=== PATIENT | female | born 1955 | race Caucasian/White ===

== ENCOUNTER 2019-04-06 10:30 | Inpatient (IN) | payer SELFPAY ==
--- NOTE | 2019-04-06 13:20 | ER Document Report ---
ED Medical Screen (RME) - General Chief Complaint: Low Back Pain Stated Complaint: LOWER BACK PAIN Time Seen by Provider: 04/06/19 12:58 Notes: Patient is a 63-year-old female who presents emergency department with a chief complaint of back pain. Patient reports she has had constant lower back pain over the past 4 to 5 months. She is living in a hotel currently. Patient is brought to triage by a neighbor who also lives in the hotel room as she is concerned that she has been bed bound for over 2 weeks due to the severe back pain and that she is concerned that she may fall. Patient reports she has been taking ibuprofen. She states that she can stand up but is unable to ambulate without assistance due to severe pain. Denies IV drug use. Denies chest pain, shortness of breath or fever. Denies loss of bowel or bladder. Denies injury or fall. TRAVEL OUTSIDE OF THE [place] IN LAST 30 DAYS: No - Related Data Allergies/Adverse Reactions: Sulfa (Sulfonamide Antibiotics) Allergy (Verified 04/06/19 12:58) Home Medications: sholat Past Medical History - Social History Chew tobacco use (# tins/day): No Frequency of alcohol use: None Drug Abuse: None Physical Exam - Vital signs Vitals: Temp Pulse Resp BP Pulse Ox 97.5 F 117 H 20 107/79 98 04/06/19 10:45 04/06/19 10:45 04/06/19 10:45 04/06/19 10:45 04/06/19 10:45 Course - Re-evaluation Re-evalutation: 04/06/19 13:18 Patient has diffuse lower back pain. Patient appears disheveled, is alert and oriented x3. Heart rate 117. Will obtain basic labs as well as urinalysis. I have greeted and performed a rapid initial assessment of this patient. A comprehensive ED assessment and evaluation of the patient, analysis of test results and completion of the medical decision making process will be conducted by additional ED providers. - Vital Signs Vital signs: Temp Pulse Resp BP Pulse Ox 97.5 F 117 H 20 107/79 98 04/06/19 10:45 04/06/19 10:45 04/06/19 10:45 04/06/19 10:45 04/06/19 10:45
--- NOTE | 2019-04-06 14:18 | RADIOLOGY REPORT (SQ) ---
EXAM DESCRIPTION: CT LUMBAR SPINE WITHOUT COMPLETED DATE/TIME: 04/06/2019 2:07 pm REASON FOR STUDY: back pain COMPARISON: None. TECHNIQUE: Axial images acquired through the lumbar spine without intravenous contrast. Images revi ewed with lung, soft tissue and bone windows. Reconstructed coronal and sagittal MPR images reviewed . All images stored on PACS. All CT scanners at this facility use dose modulation, iterative reconstruction, and/or weight based d osing when appropriate to reduce radiation dose to as low as reasonably achievable (ALARA). [facility]: Dose Right [facility]: CareDose [facility]: Dose Right [facility]: Teradose 4D [facility]: Novavax AB RADIATION DOSE: mGy. LIMITATIONS: None. FINDINGS: SEGMENTATION: Normal. No transitional anatomy. ALIGNMENT: Normal. VERTEBRAL BODIES: There is wedging of L1. This is secondary to what appears to be a pathologic compr ession fracture. Mild wedging of L2. There are lytic lesions throughout the lumbar spine. There is an expansile lesion in the transverse process of L3. DISCS: No significant protrusions. Study limited by lack of intrathecal contrast. PEDICLES, TRANSVERSE PROCESSES: No fractures. No dislocation. No acute findings. FACETS, POSTERIOR ELEMENTS: No fractures. No dislocation. No spinal stenosis. HARDWARE: None in the spine. VISUALIZED RIBS: No fractures. SOFT TISSUES: No significant or acute finding in adjacent soft tissues. OTHER: No other significant finding. IMPRESSION: Multiple lytic lesions throughout the lumbar spine with a large expansile lesion in the left L3 transverse process. Findings are most consistent with metastatic disease. Does the patient have a known primary? TECHNICAL DOCUMENTATION: JOB ID: [id number] Quality ID # [id number]: Final reports with documentation of one or more dose reduction techniques (e.g., Au tomated exposure control, adjustment of the mA and/or kV according to patient size, use of iterative reconstruction technique) 2010 [employer]- All Rights Reserved Reading location - IP/workstation name: [email or web address]
--- NOTE | 2019-04-06 14:25 | RADIOLOGY REPORT (SQ) ---
EXAM DESCRIPTION: FEMUR LEFT COMPLETED DATE/TIME: 04/06/2019 2:13 pm REASON FOR STUDY: left thigh pain COMPARISON: None. NUMBER OF VIEWS: Two views. TECHNIQUE: Two radiographic images acquired of the left femur to include hip and knee in at least on e projection. LIMITATIONS: None. FINDINGS: MINERALIZATION: Normal. BONES: There is a lytic lesion in the mid femur. There is periostitis. No fracture. SOFT TISSUES: No obvious swelling or foreign body. OTHER: No other significant finding. IMPRESSION: Lytic lesion in the mid left femur suspicious for primary neoplasm or metastatic disease . TECHNICAL DOCUMENTATION: JOB ID: [id number] 2010 [employer]- All Rights Reserved Reading location - IP/workstation name: [email or web address]
[2019-04-06 14:26] LABS: ABSOLUTE BASOPHILS # (AUTO) 0.1 10^3/uL (0.0-0.2); ABSOLUTE EOSINOPHILS # (AUTO) 0.2 10^3/uL (0.0-0.6); ABSOLUTE LYMPHOCYTES (AUTO) 2.3 10^3/uL (0.5-4.7); ABSOLUTE NEUT (AUTO) 11.3 10^3/uL (1.7-8.2); BASOPHILS % (AUTO) 0.5 % (0-2); EOSINOPHILS % (AUTO) 1.1 % (0-6); HEMOGLOBIN 12.2 g/dL (12.0-15.5); LYMPHOCYTES % (AUTO) 15.5 % (13-45); MEAN CORPUSCULAR HEMOGLOBIN 31.8 pg (27.0-33.4); MEAN CORPUSCULAR HGB CONC 34.9 g/dL (32.0-36.0); MEAN CORPUSCULAR VOLUME 91 fl (80-97); MONOCYTES % (AUTO) 6.9 % (3-13); PLATELET COUNT 604 10^3/uL (150-450); RED BLOOD COUNT 3.85 10^6/uL (3.72-5.28); RED CELL DISTRIBUTION WIDTH 14.6 % (11.5-14.0); TOTAL CELLS COUNTED % (AUTO) 100 %; WHITE BLOOD COUNT 14.8 10^3/uL (4.0-10.5)
[2019-04-06 14:44] LABS: ALKALINE PHOSPHATASE 309 U/L (38-126); ANION GAP 15 (5-19); ASPARTATE AMINO TRANSFERASE 22 U/L (14-36); BILIRUBIN,DIRECT 0.3 mg/dL (0.0-0.4); BILIRUBIN,TOTAL 0.5 mg/dL (0.2-1.3); BLOOD UREA NITROGEN 54 mg/dL (7-20); CARBON DIOXIDE 14 mmol/L (22-30); CHLORIDE 112 mmol/L (98-107); GLUCOSE 164 mg/dL (75-110); POTASSIUM 3.6 mmol/L (3.6-5.0); TOTAL PROTEIN 7.3 g/dL (6.3-8.2)
[2019-04-06 15:01] LABS: CALCIUM 12.3 mg/dL (8.4-10.2)
[2019-04-06] MEDS ORDERED: NORMAL SALINE 1000 ML 1,000 ML IV ONE (15:58)
--- NOTE | 2019-04-06 16:00 | ER Document Report ---
ED General - General Chief Complaint: Low Back Pain Stated Complaint: LOWER BACK PAIN Time Seen by Provider: 04/06/19 12:58 TRAVEL OUTSIDE OF THE [place] IN LAST 30 DAYS: No - HPI Notes: 63-year-old female to the emergency department with complaints of low back pain and left thigh pain that has been ongoing for the past 3 months. She states that the pain started first with her thigh and then progressed to her low back. She states that her back gives her so much pain that she has now started to use a walker. She is currently living in a hotel. She states that she has had a 20 pound weight loss. She states that she has no appetite for food or any fluids. She states that she has not seen a physician in over 5 years. She states that she is a former smoker. She denies any abdominal pain or cough. She denies any night sweats. She denies any nausea or vomiting. She was brought in by a hotel worker today because they have been starting to get worried that she is going to fall in her room and no one will know that she is down. - Related Data Allergies/Adverse Reactions: Sulfa (Sulfonamide Antibiotics) Allergy (Verified 04/06/19 12:58) Home Medications: [employer] Past Medical History - General Information source: Patient, Friend - Social History Smoking Status: Former Smoker Chew tobacco use (# tins/day): No Frequency of alcohol use: None Drug Abuse: None Lives with: Alone Family History: Reviewed & Not Pertinent Patient has suicidal ideation: No Patient has homicidal ideation: No Review of Systems - Review of Systems Constitutional: Weight loss - 20 pound weight loss. denies: Chills, Fever EENT: No symptoms reported Cardiovascular: denies: Chest pain, Palpitations, Syncope, Dizziness, Lightheaded Respiratory: denies: Cough, Short of breath Gastrointestinal: denies: Abdominal pain, Diarrhea, Nausea, Vomiting, Fecal incontinence Genitourinary: denies: Incontinence Musculoskeletal: See HPI, Back pain, Joint pain, Leg swelling Skin: No symptoms reported Neurological/Psychological: See HPI, Gait changes -: Yes All other systems reviewed and negative Physical Exam - Vital signs Vitals: Temp Pulse Resp BP Pulse Ox 97.5 F 117 H 20 107/79 98 04/06/19 10:45 04/06/19 10:45 04/06/19 10:45 04/06/19 10:45 04/06/19 10:45 Interpretation: Normal - General General appearance: Alert Notes: Appears chronically ill, pale, mucous membranes are very dry - HEENT Head: Normocephalic, Atraumatic Eyes: Normal Pupils: PERRL Ears: Normal External canal: Normal Tympanic membrane: Normal Sinus: Normal Nasal: Normal Mouth/Lips: Normal Mucous membranes: Dry Pharynx: Normal. No: Potential airway comprom. Neck: Normal, Supple. No: Lymphadenopathy, Meningismus - Respiratory Respiratory status: No respiratory distress Chest status: Nontender Breath sounds: Normal. No: Rales, Rhonchi, Wheezing Chest palpation: Normal - Cardiovascular Rhythm: Regular Heart sounds: Normal auscultation Murmur: No - Abdominal Inspection: Normal Distension: No distension Bowel sounds: Normal Tenderness: Nontender. No: Tender, McBurney's point, Sullivan's sign, Guarding, Rebound Organomegaly: No organomegaly - Back Back: Normal, Tender - There is tenderness to palpation to the midline lumbar spine. There is no step-off or deformity., Deformity/step-off - Extremities Notes: There is mild tenderness to palpation to the left thigh with possibly some mild edema. There is no calf pain. There is no lower extremity erythema or warmth. - Neurological Neuro grossly intact: Yes Cognition: Normal Orientation: AAOx4 Yaw Coma Scale Eye Opening: Spontaneous Yaw Coma Scale Verbal: Oriented [place] Coma Scale Motor: Obeys Commands [place] Coma Scale Total: 15 Speech: Normal Cranial nerves: Normal Cerebellar coordination: Normal Motor strength normal: LUE, RUE, LLE, RLE Additional motor exam normals: Equal sports photographer Sensory: Normal - Psychological Associated symptoms: Normal affect, Normal mood - Skin Skin Temperature: Warm Skin Moisture: Dry Skin Color: Normal Course - Re-evaluation Re-evalutation: 04/06/19 16:23 Discussed the patient with Dr. Hitchcock, ER attending. We discussed her acute kidney injury as well as concerning lumbar CT and leg x-ray for bone mets. We will obtain a chest x-ray because the patient is a former smoker and then will speak with oncology and hospitalist about admission. Discussed this with patient and she agrees with the plan. 04/06/19 16:[address] Bills, oncologist telecommunications specialist. She agrees with plan for admission for patient. She agrees that the patient needs to be hydrated and she will also work-up for myeloma. I placed a page to hospitalist. Spoke with Dr. Proctor about patient. He agrees with plan for admission. He is aware patient's acute kidney injury as well as hypercalcemia. He is aware of patient's lytic lesions on CT scan as well as x-ray. He is aware that Dr. Bills has been consulted and she will see the patient. Impression: Low back pain and left femur pain with lytic lesion seen on imaging today, acute kidney injury, hypercalcemia. Hospitalist team will admit and patient will be further managed and evaluated. - Vital Signs Vital signs: Temp Pulse Resp BP Pulse Ox 97.5 F 117 H 20 107/79 98 04/06/19 10:45 04/06/19 10:45 04/06/19 10:45 04/06/19 10:45 04/06/19 10:45 - Laboratory Result Diagrams: 04/06/19 13:35 04/06/19 13:35 Laboratory results interpreted by me: 04/06/19 04/06/19 13:35 13:35 WBC 14.8 H Hct 35.0 L RDW 14.6 H Plt Count 604 H Absolute Neuts (auto) 11.3 H Chloride 112 H Carbon Dioxide 14 L BUN 54 H Creatinine 1.95 H Est GFR ( Amer) 31 L Est GFR (MDRD) Non-Af 26 L Glucose 164 H Calcium 12.3 H* Alkaline Phosphatase 309 H - Diagnostic Test Radiology reviewed: Image reviewed, Reports reviewed Discharge - Discharge Clinical Impression: Lytic bone lesion of femur, APRIL (acute kidney injury), Hypercalcemia Low back pain Qualifiers: Chronicity: chronic Back pain laterality: midline Sciatica presence: without sciatica Qualified Code(s): M54.5 - Low back pain Condition: Stable Disposition: ADMITTED INPATIENT Admitting Provider: Esthela (Hospitalist) Unit Admitted: Medical Floor
--- NOTE | 2019-04-06 16:44 | RADIOLOGY REPORT (SQ) ---
EXAM DESCRIPTION: CHEST SINGLE VIEW COMPLETED DATE/TIME: 04/06/2019 4:32 pm REASON FOR STUDY: bone lytic lesions, former smoker COMPARISON: None. EXAM PARAMETERS: NUMBER OF VIEWS: One view. TECHNIQUE: Single frontal radiographic view of the chest acquired. RADIATION DOSE: NA LIMITATIONS: None. FINDINGS: LUNGS AND PLEURA: No opacities, masses or pneumothorax. No pleural effusion. MEDIASTINUM AND HILAR STRUCTURES: No masses. Contour normal. HEART AND VASCULAR STRUCTURES: Heart normal in size. Normal vasculature. BONES: No acute findings. HARDWARE: None in the chest. OTHER: No other significant finding. IMPRESSION: NO ACUTE RADIOGRAPHIC FINDING IN THE CHEST. TECHNICAL DOCUMENTATION: JOB ID: [id number] 2010 [employer]- All Rights Reserved Reading location - IP/workstation name: [email or web address]
[2019-04-06] MEDS ORDERED: ONDANSETRON HCL INJ/PF 4 MG/2 ML SDV IV ONE (16:45)
[2019-04-06] MEDS ORDERED: MORPHINE SULFATE 10 MG/ML INJ IV ONE (16:45)
[2019-04-06] MEDS ORDERED: NORMAL SALINE 1000 ML 1,000 ML IV PRN (17:20)
[2019-04-06] MEDS ORDERED: ZOLEDRONIC ACID 4 MG/100 ML RTU IV ONE ×2 (17:27→18:30)
[2019-04-06] MEDS ORDERED: ONDANSETRON HCL INJ/PF 4 MG/2 ML SDV IV PRN (17:28)
[2019-04-06] MEDS ORDERED: PROMETHAZINE HCL INJ 25 MG/1 ML VIAL IV PRN (17:28)
[2019-04-06] MEDS ORDERED: MAGNESIUM HYDROXIDE SUSP 30 ML UDCUP PO PRN (17:28)
[2019-04-06] MEDS ORDERED: TEMAZEPAM 15 MG CAPSULE PO PRN (17:28)
[2019-04-06] MEDS ORDERED: IPRATROPIUM/ALBUTEROL 0.5-2.5 MG/3 ML AMPUL NEB PRN (17:28)
[2019-04-06] MEDS ORDERED: METOPROLOL TARTRATE PF/INJ 5 MG/5 ML SDV IV PRN (17:49)
[2019-04-06] MEDS ORDERED: FUROSEMIDE INJ/PF 40 MG/4 ML SDV IV ONE (18:00)
--- NOTE | 2019-04-06 18:23 | PDOC H&P ---
History of Present Illness History of Present Illness: DANISH DOWLING is a 63 year old female with no significant past medical history presenting to ED complaining of progressively worsening bilateral hip and left lower extremity pain. Pain is described as constant, achy in nature, 10/10 on severity scale, worsened with any weightbearing or movement, relieved with ibuprofen. She is also c/o progressive weakness, fatigue, low appetite, weight loss of 30 pounds in the last 1 month, polydipsia and polyuria. This all started about 3 months ago with no apparent cause, denies any heavy lifting, trauma, chronic back pain, history of malignancy. She denies any headache, vision changes, numbness, tingling, focal neurological deficits, dysphagia, odynophagia, shortness of breath, chest pain, nausea, diarrhea, constipation or any urinary symptoms. Social History Lives with: Alone Smoking Status: Former Smoker Electronic Cigarette use?: No Family History Family History: Reviewed & Not Pertinent Parental Family History Reviewed: Yes Children Family History Reviewed: Yes Sibling(s) Family History Reviewed.: Yes Medication/Allergy Home Medications: No Home Medications 04/06/19 Allergies/Adverse Reactions: Sulfa (Sulfonamide Antibiotics) Allergy (Verified 04/06/19 12:58) Review of Systems Review of Systems: as per hpi Physical Exam Vital Signs: Temp Pulse Resp BP Pulse Ox 97.5 F 117 H 20 107/79 98 04/06/19 10:45 04/06/19 10:45 04/06/19 10:45 04/06/19 10:45 04/06/19 10:45 Intake & Output 04/05/19 04/06/19 04/07/19 06:59 06:59 06:59 Weight 74 kg General appearance: PRESENT: no acute distress, other - Pale, exhausted. Head exam: PRESENT: atraumatic, normocephalic Respiratory exam: PRESENT: clear to auscultation cindy. ABSENT: rales, rhonchi, wheezes Cardiovascular exam: PRESENT: RRR. ABSENT: diastolic murmur, rubs, systolic murmur GI/Abdominal exam: PRESENT: normal bowel sounds, soft. ABSENT: distended, guarding, mass, organolmegaly, rebound, tenderness Extremities exam: PRESENT: tenderness - Left mid thigh. Bilateral hip.. ABSENT: calf tenderness, clubbing, pedal edema Neurological exam: PRESENT: alert, awake, oriented to person, oriented to place, oriented to time, oriented to situation, CN II-XII grossly intact. ABSENT: motor sensory deficit Skin exam: PRESENT: dry, intact, pallor, warm. ABSENT: cyanosis, rash Results Laboratory Results: 04/06/19 13:35 04/06/19 13:35 04/06/19 04/06/19 13:35 13:35 WBC 14.8 H RBC 3.85 Hgb 12.2 Hct 35.0 L MCV 91 MCH 31.8 MCHC 34.9 RDW 14.6 H Plt Count 604 H Seg Neutrophils % 76.0 Sodium 140.9 Potassium 3.6 Chloride 112 H Carbon Dioxide 14 L Anion Gap 15 BUN 54 H Creatinine 1.95 H Est GFR ( Amer) 31 L Glucose 164 H Calcium 12.3 H* Total Bilirubin 0.5 AST 22 Alkaline Phosphatase 309 H Total Protein 7.3 Albumin 4.0 Impressions: Lumbar Spine CT 04/06/19 13:16 IMPRESSION: Multiple lytic lesions throughout the lumbar spine with a large expansile lesion in the left L3 transverse process. Findings are most consistent with metastatic disease. Does the patient have a known primary? Femur X-Ray 04/06/19 13:17 IMPRESSION: Lytic lesion in the mid left femur suspicious for primary neoplasm or metastatic disease. Chest X-Ray 04/06/19 16:13 IMPRESSION: NO ACUTE RADIOGRAPHIC FINDING IN THE CHEST. Assessment and Plan - Diagnosis (1) Hypercalcemia Is this a current diagnosis for this admission?: Yes Plan: Most likely hypercalcemia of malignancy given lytic bone lesions, anemia and APRIL patient most likely has multiple myeloma. Admit to telemetry, aggressive volume resuscitation guided by volume status, strict in and out, zoledronic acid, calcium level daily, EKG, PTH level. (2) Anorexia Is this a current diagnosis for this admission?: Yes Plan: Likely due to underlying malignancy. We will start on Megace. Consult dietitian. (3) Low back pain Qualifiers: Chronicity: chronic Back pain laterality: midline Sciatica presence: without sciatica Qualified Code(s): M54.5 - Low back pain; G89.29 - Other chronic pain Is this a current diagnosis for this admission?: Yes Plan: Likely due to underlying malignancy. Supportive measures. Denies any focal neurological deficits. Denies any saddle paresthesias. Denies any incontinence or urinary retention. (4) Lytic bone lesion of femur Is this a current diagnosis for this admission?: Yes Plan: Most likely underlying malignancy possibly multiple myeloma given anemia, APRIL, hypercalcemia. We will order UPEP SPEP. Beta-2 microglobulin. LDH. Skeletal survey. Consult oncology. (5) APRIL (acute kidney injury) Is this a current diagnosis for this admission?: Yes Plan: Likely due to underlying malignancy, multiple myeloma. Aggressive volume resuscitation guided by volume status. Strict in and out. Ultrasound. Daily BMP. Avoid nephrotoxic meds.
[2019-04-06] MEDS: MORPHINE SULFATE 10 MG/ML INJ IV PRN (19:00)
[2019-04-06] MEDS: NORMAL SALINE 1000 ML 1,000 ML IV PRN (19:04)
[2019-04-06] MEDS: ACETAMINOPHEN 325 MG TABLET PO PRN (20:58)
[2019-04-06] MEDS ORDERED: INFLUENZA QUAD (6MOS+) 2019-20 VAC 0.5 ML SYR IM ONE (21:34)
--- NOTE | 2019-04-06 22:59 | EKG REPORT ---
SEVERITY:- ABNORMAL ECG - SINUS RHYTHM PROBABLE LEFT VENTRICULAR HYPERTROPHY : Confirmed by: Daniela Bang MD 06-Apr-2019 22:57:45
[2019-04-07] MEDS: OXYCODONE-ACETAMINOPHEN 5-325 MG TABLET PO PRN ×2 (00:22→07:58)
[2019-04-07] MEDS: DOCUSATE SODIUM 100 MG CAPSULE PO SCH ×3 (04:22→17:23)
[2019-04-07] MEDS: HEPARIN SOD (PORCINE) 5,000 UNIT/ML 1 ML VIAL SUBCUT SCH ×4 (04:23→21:26)
[2019-04-07] MEDS: MORPHINE SULFATE 10 MG/ML INJ IV PRN ×3 (05:09→21:25)
[2019-04-07] MEDS: NORMAL SALINE 1000 ML 1,000 ML IV PRN ×4 (05:10→21:28)
[2019-04-07] MEDS: PANTOPRAZOLE SODIUM 40 MG TABLET.DR PO SCH ×2 (05:10→16:23)
[2019-04-07 05:18] LABS: ABSOLUTE EOSINOPHILS # (AUTO) 0.2 10^3/uL (0.0-0.6); ABSOLUTE LYMPHOCYTES (AUTO) 2.6 10^3/uL (0.5-4.7); ABSOLUTE MONOCYTES (AUTO) 1.1 10^3/uL (0.1-1.4); ABSOLUTE NEUT (AUTO) 6.4 10^3/uL (1.7-8.2); BASOPHILS % (AUTO) 0.3 % (0-2); EOSINOPHILS % (AUTO) 1.6 % (0-6); HEMATOCRIT 31.3 % (36.0-47.0); HEMOGLOBIN 10.8 g/dL (12.0-15.5); LYMPHOCYTES % (AUTO) 25.2 % (13-45); MEAN CORPUSCULAR HEMOGLOBIN 31.8 pg (27.0-33.4); MEAN CORPUSCULAR HGB CONC 34.6 g/dL (32.0-36.0); MEAN CORPUSCULAR VOLUME 92 fl (80-97); MONOCYTES % (AUTO) 10.5 % (3-13); PLATELET COUNT 429 10^3/uL (150-450); RED BLOOD COUNT 3.41 10^6/uL (3.72-5.28); RED CELL DISTRIBUTION WIDTH 14.5 % (11.5-14.0); SEGMENTED NEUTROPHILS % (AUTO) 62.4 % (42-78); TOTAL CELLS COUNTED % (AUTO) 100 %; WHITE BLOOD COUNT 10.3 10^3/uL (4.0-10.5)
[2019-04-07 05:53] LABS: ALBUMIN 3.5 g/dL (3.5-5.0); ALKALINE PHOSPHATASE 290 U/L (38-126); ANION GAP 13 (5-19); ASPARTATE AMINO TRANSFERASE 28 U/L (14-36); BILIRUBIN,DIRECT 0.4 mg/dL (0.0-0.4); BILIRUBIN,TOTAL 0.4 mg/dL (0.2-1.3); BLOOD UREA NITROGEN 47 mg/dL (7-20); CALCIUM 10.8 mg/dL (8.4-10.2); CARBON DIOXIDE 16 mmol/L (22-30); CHLORIDE 115 mmol/L (98-107); GLUCOSE 82 mg/dL (75-110); PHOSPHORUS 3.5 mg/dL (2.5-4.5); POTASSIUM 3.3 mmol/L (3.6-5.0); TOTAL PROTEIN 6.7 g/dL (6.3-8.2)
[2019-04-07 06:06] LABS: FREE T3 3.55 pg/mL (2.77-5.27); FREE T4 (FREE THYROXINE) 0.95 ng/dL (0.78-2.19)
[2019-04-07] MEDS ORDERED: POTASSI CL 20 MEQ/1/2NS 1L 20 MEQ/1,000 ML RTUINJ IV ONE (06:14)
[2019-04-07 06:26] LABS: THYROID STIMULATING HORMONE < 0.01 uIU/mL (0.47-4.68)
--- NOTE | 2019-04-07 07:45 | PDOC CONSULTATION ---
Consultation Consult Date: 04/07/19 Provider Consulted: OLGA BRICENO Consult reason:: Hematology/Oncology consultation was requested for patient with abnormal lytic lesions on X-rays as well as hypercalcemia. History of Present Illness Admission Date/PCP: 04/06/19 17:37 History of Present Illness: DANISH DOWLING is a 63 year old female without a PCP who presented to the ED with a 3-4 month history of progressive back and leg pain. She states that it felt like something was twisted in her back. She has had difficulty walking, as pain is worse with movement. She recently twisted and heard a "pop" in her side. She has also lost 20-30 LBS over the same time period, as she has had no appetite. She was hoping to get "a cortisone shot" but was admitted. Today, she states that the pain medication is working. She is not having any side effects, but it does not last long. Findings on admission include hypercalcemia and lytic bone lesions concerning for myeloma or metastatic cancer. She denies recent mammogram or colonoscopy. 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 Neurological Medical History: Reports: Migraine Renal/ Medical History: Reports: Nephrolithiasis Malignancy Medical History: Reports: None GI Medical History: Reports: None Psychiatric Medical History: Denies: Depression Past Surgical History Past Surgical History: Reports: Tubal Ligation Social History Lives with: Alone Smoking Status: Former Smoker Cigarettes Packs Per Day: 1.5 Electronic Cigarette use?: No Number of Years Smokin Last Time Smoked: 5 years ago Frequency of Alcohol Use: None Hx Recreational Drug Use: No Drugs: None Hx Prescription Drug Abuse: No Past Social History Note: , 2 children. Family History Parental Family History Reviewed: Yes - Father kidney stones and CAD. Mother breast cancer Children Family History Reviewed: Yes Sibling(s) Family History Reviewed.: Yes - Brother CAD Medication/Allergy Home Medications: No Home Medications 04/06/19 Allergies/Adverse Reactions: Sulfa (Sulfonamide Antibiotics) Allergy (Verified 04/06/19 12:58) Review of Systems Constitutional: ABSENT: fever(s), headache(s) Eyes: ABSENT: visual disturbances Ears: ABSENT: hearing changes Nose, Mouth, and Throat: ABSENT: sore throat Cardiovascular: ABSENT: chest pain, dyspnea on exertion Respiratory: ABSENT: dyspnea Gastrointestinal: ABSENT: constipation, diarrhea, nausea Genitourinary: ABSENT: dysuria Musculoskeletal: PRESENT: as per HPI Integumentary: ABSENT: rash Neurological: PRESENT: weakness Hematologic/Lymphatic: ABSENT: easy bleeding Physical Exam Vital Signs: Temp Pulse Resp BP Pulse Ox 98.2 F 90 18 163/71 H 100 04/06/19 23:41 04/06/19 23:41 04/06/19 23:41 04/06/19 23:41 04/06/19 23:41 Intake & Output 04/06/19 04/07/19 04/08/19 06:59 06:59 06:59 Intake Total 2250 Output Total 200 Balance 2049 Weight 64.2 kg General appearance: PRESENT: no acute distress, well-developed, well-nourished Exam: 63 year old female. Head exam: PRESENT: normocephalic Eye exam: PRESENT: EOMI, PERRLA Mouth exam: PRESENT: tongue midline Neck exam: ABSENT: lymphadenopathy, tenderness Respiratory exam: PRESENT: clear to auscultation cindy, unlabored Cardiovascular exam: PRESENT: RRR. ABSENT: systolic murmur GI/Abdominal exam: PRESENT: soft. ABSENT: organolmegaly, tenderness Extremities exam: ABSENT: pedal edema Musculoskeletal exam: PRESENT: normal inspection Neurological exam: PRESENT: alert, awake Psychiatric exam: PRESENT: appropriate affect Skin exam: PRESENT: normal color Results Laboratory Results: 04/07/19 04:28 04/07/19 04:28 04/06/19 04/06/19 04/06/19 13:35 13:35 20:22 WBC 14.8 H RBC 3.85 Hgb 12.2 Hct 35.0 L MCV 91 MCH 31.8 MCHC 34.9 RDW 14.6 H Plt Count 604 H Seg Neutrophils % 76.0 Sodium 140.9 Potassium 3.6 Chloride 112 H Carbon Dioxide 14 L Anion Gap 15 BUN 54 H Creatinine 1.95 H Est GFR ( Amer) 31 L Glucose 164 H Calcium 12.3 H* Phosphorus Magnesium Total Bilirubin 0.5 AST 22 Alkaline Phosphatase 309 H Total Protein 7.3 Albumin 4.0 TSH Free T4 Free T3 pg/mL PTH Intact 16.3 02/26/20 02/27/20 02/27/20 20:22 04:28 04:28 WBC 10.3 RBC 3.41 L Hgb 10.8 L Hct 31.3 L MCV 92 MCH 31.8 MCHC 34.6 RDW 14.5 H Plt Count 429 Seg Neutrophils % 62.4 Sodium 143.6 Potassium 3.3 L Chloride 115 H Carbon Dioxide 16 L Anion Gap 13 BUN 47 H Creatinine 1.13 Est GFR ( Amer) 59 L Glucose 82 Calcium 10.3 H 10.8 H Phosphorus 3.5 Magnesium 2.3 Total Bilirubin 0.4 AST 28 Alkaline Phosphatase 290 H Total Protein 6.7 Albumin 3.5 TSH Free T4 Free T3 pg/mL PTH Intact 04/07/19 04:28 WBC RBC Hgb Hct MCV MCH MCHC RDW Plt Count Seg Neutrophils % Sodium Potassium Chloride Carbon Dioxide Anion Gap BUN Creatinine Est GFR ( Amer) Glucose Calcium Phosphorus Magnesium Total Bilirubin AST Alkaline Phosphatase Total Protein Albumin TSH < 0.01 L Free T4 0.95 Free T3 pg/mL 3.55 PTH Intact Impressions: Lumbar Spine CT 04/06/19 13:16 IMPRESSION: Multiple lytic lesions throughout the lumbar spine with a large expansile lesion in the left L3 transverse process. Findings are most consistent with metastatic disease. Does the patient have a known primary? Femur X-Ray 04/06/19 13:17 IMPRESSION: Lytic lesion in the mid left femur suspicious for primary neoplasm or metastatic disease. Chest X-Ray 04/06/19 16:13 IMPRESSION: NO ACUTE RADIOGRAPHIC FINDING IN THE CHEST. Status: Image reviewed by me Assessment & Plan - Diagnosis (1) Hypercalcemia Is this a current diagnosis for this admission?: Yes Plan: She received Zometa. Continue fluids. This is improving. (2) Lytic bone lesion of femur Is this a current diagnosis for this admission?: Yes Plan: This is most consistent with multiple myeloma. Await lab results, but this may take a week. Await skeletal survey. Also must consider metastatic cancer. Consider CT C/A/P, but right now, kidney function is not optimal. I would hold of on CT scans until after labs are resulted and skeletal survey is complete. (3) Low back pain Qualifiers: Chronicity: chronic Back pain laterality: midline Sciatica presence: wit hout sciatica Qualified Code(s): M54.5 - Low back pain; G89.29 - Other chronic pain Is this a current diagnosis for this admission?: Yes Plan: Most likely bone pain. She is doing well with Morphine IR. I would change this to PO and stop tylenol based products. I will add MS Contin 15 mg po BID and titrate to desired efficacy. She is at risk for DVT, so walking is our goal. Consider prophylaxis for DVT as well. - Plan Summary Plan Summary: All of this was discussed with patient in detail. She understands that plan. Hope for discharge as soon as pain medications can be adequately titrated and are effective.
--- NOTE | 2019-04-07 08:57 | RADIOLOGY REPORT (SQ) ---
EXAM DESCRIPTION: U/S RETROPERITON LTD COMPLETED DATE/TIME: 04/06/2019 8:03 pm REASON FOR STUDY: AKUI COMPARISON: None. TECHNIQUE: Dynamic and static grayscale images acquired of the kidneys and bladder and recorded on P ACS. Additional selected color Doppler and spectral images recorded. LIMITATIONS: None. FINDINGS: RIGHT KIDNEY: The right kidney measures 10 cm in length. The corticomedullary differenti ation is preserved. There is no hydronephrosis, calcification or mass. LEFT KIDNEY: The left kidney measures 9.3 cm in length. The corticomedullary differentiation is pre served. There is no hydronephrosis, calcification or mass. BLADDER: There is a Wells catheter within the urinary bladder. OTHER FINDINGS: The gallbladder wall measures 2.1 mm in thickness. There are shadowing echogenic angela culi within the gallbladder lumen. There is no pericholecystic fluid. The common bile duct measures 6 mm in diameter. IMPRESSION: 1. No abnormality of the kidneys. 2. Wells catheter within the urinary bladder. 3. Cholelithiasis without other associated ancillary findings to indicate an acute cholecystitis. TECHNICAL DOCUMENTATION: JOB ID: [id number] 2010 [employer]- All Rights Reserved Reading location - IP/workstation name: [email or web address]
[2019-04-07] MEDS: MORPHINE SULFATE SR 15 MG TABLET PO SCH ×2 (09:12→21:26)
[2019-04-07 09:28] LABS: APPEARANCE,URINE CLEAR; BILIRUBIN,URINE NEGATIVE (NEGATIVE); COLOR,URINE STRAW; GLUCOSE, URINE NEGATIVE (NEGATIVE); KETONES,URINE NEGATIVE (NEGATIVE); PROTEIN,URINE NEGATIVE (NEGATIVE); URINE SPECIFIC GRAVITY 1.011; UROBILINOGEN,URINE NEGATIVE mg/dL (<2.0)
[2019-04-07] MEDS ORDERED: PROMETHAZINE HCL INJ 25 MG/1 ML VIAL IV PRN (09:30)
--- NOTE | 2019-04-07 12:27 | PDOC PROGRESS REPORT ---
Subjective Progress Note for:: 04/07/19 Subjective:: DANISH DOWLING is a 63 year old female with no significant past medical history presenting to ED complaining of progressively worsening bilateral hip and left lower extremity pain. Pain is described as constant, achy in nature, 10/10 on severity scale, worsened with any weightbearing or movement, relieved with ibuprofen. She is also c/o progressive weakness, fatigue, low appetite, weight loss of 30 pounds in the last 1 month, polydipsia and polyuria. This all started about 3 months ago with no apparent cause, denies any heavy lifting, trauma, chronic back pain, history of malignancy. She denies any headache, vision changes, numbness, tingling, focal neurological deficits, dysphagia, odynophagia, shortness of breath, chest pain, nausea, diarrhea, constipation or any urinary symptoms 04/07/2019. No acute events overnight. Patient reports improvement of back and lower extremity pain since being started on sustained-release morphine by oncology, denies any fever, chills, nausea, vomiting, diarrhea, constipation or any urinary symptoms. Reason For Visit: APRIL, HYPERCALCEMIA, METASTATIC DISEASE Physical Exam Vital Signs: Temp Pulse Resp BP Pulse Ox 97.8 F 93 18 167/73 H 100 04/07/19 11:08 04/07/19 11:08 04/07/19 11:08 04/07/19 11:08 04/07/19 11:08 Intake & Output 04/06/19 04/07/19 04/08/19 06:59 06:59 06:59 Intake Total 2250 1999 Output Total 200 Balance 2049 1999 Weight 64.2 kg 64.2 kg General appearance: PRESENT: no acute distress, well-developed, well-nourished Head exam: PRESENT: atraumatic, normocephalic Respiratory exam: PRESENT: clear to auscultation cindy. ABSENT: rales, rhonchi, wheezes Cardiovascular exam: PRESENT: RRR. ABSENT: diastolic murmur, rubs, systolic murmur GI/Abdominal exam: PRESENT: normal bowel sounds, soft. ABSENT: distended, guarding, mass, organolmegaly, rebound, tenderness Extremities exam: PRESENT: full ROM, tenderness. ABSENT: calf tenderness, clubbing, pedal edema Neurological exam: PRESENT: alert, awake, oriented to person, oriented to place, oriented to time, oriented to situation, CN II-XII grossly intact. ABSENT: motor sensory deficit Results Laboratory Results: 04/07/19 04:28 04/07/19 04:28 04/06/19 04/06/19 04/06/19 09:16 13:35 13:35 WBC 14.8 H RBC 3.85 Hgb 12.2 Hct 35.0 L MCV 91 MCH 31.8 MCHC 34.9 RDW 14.6 H Plt Count 604 H Seg Neutrophils % 76.0 Sodium 140.9 Potassium 3.6 Chloride 112 H Carbon Dioxide 14 L Anion Gap 15 BUN 54 H Creatinine 1.95 H Est GFR ( Amer) 31 L Glucose 164 H Calcium 12.3 H* Phosphorus Magnesium Total Bilirubin 0.5 AST 22 Alkaline Phosphatase 309 H Total Protein 7.3 Albumin 4.0 TSH Free T4 Free T3 pg/mL PTH Intact Urine Color Cancelled Urine Appearance Cancelled Urine pH Cancelled Ur Specific [place] Cancelled Urine Protein Cancelled Urine Glucose (UA) Cancelled Urine Ketones Cancelled Urine Blood Cancelled Urine Nitrite Cancelled Ur Leukocyte Esterase Cancelled Urine WBC (Auto) Cancelled Urine RBC (Auto) Cancelled 04/06/19 04/06/19 04/07/19 20:22 20:22 04:28 WBC 10.3 RBC 3.41 L Hgb 10.8 L Hct 31.3 L MCV 92 MCH 31.8 MCHC 34.6 RDW 14.5 H Plt Count 429 Seg Neutrophils % 62.4 Sodium Potassium Chloride Carbon Dioxide Anion Gap BUN Creatinine Est GFR ( Amer) Glucose Calcium 10.3 H Phosphorus Magnesium Total Bilirubin AST Alkaline Phosphatase Total Protein Albumin TSH Free T4 Free T3 pg/mL PTH Intact 16.3 Urine Color Urine Appearance Urine pH Ur Specific [place] Urine Protein Urine Glucose (UA) Urine Ketones Urine Blood Urine Nitrite Ur Leukocyte Esterase Urine WBC (Auto) Urine RBC (Auto) 04/07/19 04/07/19 04/07/19 04:28 04:28 09:15 WBC RBC Hgb Hct MCV MCH MCHC RDW Plt Count Seg Neutrophils % Sodium 143.6 Potassium 3.3 L Chloride 115 H Carbon Dioxide 16 L Anion Gap 13 BUN 47 H Creatinine 1.13 Est GFR ( Amer) 59 L Glucose 82 Calcium 10.8 H Phosphorus 3.5 Magnesium 2.3 Total Bilirubin 0.4 AST 28 Alkaline Phosphatase 290 H Total Protein 6.7 Albumin 3.5 TSH < 0.01 L Free T4 0.95 Free T3 pg/mL 3.55 PTH Intact Urine Color STRAW Urine Appearance CLEAR Urine pH 6.0 Ur Specific [place] 1.011 Urine Protein NEGATIVE Urine Glucose (UA) NEGATIVE Urine Ketones NEGATIVE Urine Blood SMALL H Urine Nitrite Ur Leukocyte Esterase Urine WBC (Auto) Urine RBC (Auto) 1 Impressions: Renal Ultrasound 04/06/19 00:00 IMPRESSION: 1. No abnormality of the kidneys. 2. Wells catheter within the urinary bladder. 3. Cholelithiasis without other associated ancillary findings to indicate an acute cholecystitis. Lumbar Spine CT 04/06/19 13:16 IMPRESSION: Multiple lytic lesions throughout the lumbar spine with a large expansile lesion in the left L3 transverse process. Findings are most consistent with metastatic disease. Does the patient have a known primary? Femur X-Ray 04/06/19 13:17 IMPRESSION: Lytic lesion in the mid left femur suspicious for primary neoplasm or metastatic disease. Chest X-Ray 04/06/19 16:13 IMPRESSION: NO ACUTE RADIOGRAPHIC FINDING IN THE CHEST. Assessment and Plan - Diagnosis (1) Hypercalcemia Is this a current diagnosis for this admission?: Yes Plan: Improving. Not optimized. Most likely hypercalcemia of malignancy given lytic bone lesions, anemia and APRIL patient most likely has multiple myeloma. Continue telemetry, aggressive volume resuscitation guided by volume status, monitor calcium level, strict in and out. Give 1 dose of zoledronic acid. PTH WNL. EKG no acute changes. (2) Anorexia Is this a current diagnosis for this admission?: Yes Plan: Likely due to underlying malignancy. We will start on Megace. Consult dietitian. (3) Low back pain Qualifiers: Chronicity: chronic Back pain laterality: midline Sciatica presence: without sciatica Qualified Code(s): M54.5 - Low back pain; G89.29 - Other chronic pain Is this a current diagnosis for this admission?: Yes Plan: Improving since being started on sustained-release morphine. Likely due to underlying malignancy. Supportive measures. Denies any focal neurological deficits. Denies any saddle paresthesias. Denies any incontinence or urinary retention. (4) Lytic bone lesion of femur Is this a current diagnosis for this admission?: Yes Plan: Most likely underlying malignancy possibly multiple myeloma given anemia, APRIL, hypercalcemia. Pending skeletal survey, UPEP SPEP. Beta-2 microglobulin. Collagen on board. Recommendations noted. (5) APRIL (acute kidney injury) Is this a current diagnosis for this admission?: Yes Plan: Resolved. Likely due to underlying malignancy, multiple myeloma. Renal ultrasound unremarkable. Continue aggressive volume resuscitation guided by volume status. Strict in and out. Daily BMP. Avoid nephrotoxic meds.
--- NOTE | 2019-04-07 16:49 | RADIOLOGY REPORT (SQ) ---
EXAM DESCRIPTION: BONE SURVEY COMPLETE COMPLETED DATE/TIME: 04/07/2019 3:05 pm REASON FOR STUDY: r/o MM COMPARISON: AP and lateral views of the left femur, AV view of the chest, and CT of the lumbar spine without contrast from 04/06/2019. TECHNIQUE: Images of the axial and proximal appendicular skeleton are obtained, along with lateral s kull and frontal chest films. LIMITATIONS: None. FINDINGS: AP CHEST: The cardiac silhouette is enlarged. The mediastinal and hilar contours are unch anged. There is no consolidation, sizeable pleural effusion or pneumothorax. There is an acute nond isplaced fracture of the right posterolateral 7th rib. LATERAL SKULL: No fracture or lytic osseous lesion. AP BOTH HUMERI: 5 mm lytic lesion in the mid left humeral diaphysis. TWO-VIEW LUMBAR SPINE: There is re- demonstration of a wedge compression deformity of the L1 vertebr al body with less than 25% loss of the vertebral body height and of lytic lesions within the L2 and L 4 vertebral bodies and left lateral L3 transverse process. Overall the number/extent of lytic lesion s in the lumbar spine is underestimated on the radiographs (refer for to the correlative CT for addit ional information). TWO-VIEW THORACIC SPINE: No definite lytic lesions. AP PELVIS: No definite lytic lesions. AP BOTH FEMURS: Lytic lesion in the mid left femoral diaphysis associated with a periosteal abnormali ty. OTHER: Wells catheter. IMPRESSION: 1. Lytic lesions in the left humerus, lumbar spine and left femur. 2. Acute nondisplaced fracture of the right posterior-lateral 7th rib. TECHNICAL DOCUMENTATION: JOB ID: [id number] 2010 [employer]- All Rights Reserved Reading location - IP/workstation name: [email or web address]
[2019-04-08] MEDS: MORPHINE SULFATE 10 MG/ML INJ IV PRN (06:15)
[2019-04-08] MEDS: PANTOPRAZOLE SODIUM 40 MG TABLET.DR PO SCH ×2 (06:21→18:58)
[2019-04-08] MEDS: HEPARIN SOD (PORCINE) 5,000 UNIT/ML 1 ML VIAL SUBCUT SCH ×3 (06:21→21:15)
[2019-04-08] MEDS: NORMAL SALINE 1000 ML 1,000 ML IV PRN (06:23)
--- NOTE | 2019-04-08 08:10 | PDOC PROGRESS REPORT ---
Subjective Progress Note for:: 04/08/19 Subjective:: Patient states pain is better today. No new complaints. She would like to try to walk today and go home if possible. Reason For Visit: APRIL, HYPERCALCEMIA, METASTATIC DISEASE Physical Exam Vital Signs: Temp Pulse Resp BP Pulse Ox 98.2 F 104 H 18 164/92 H 100 04/08/19 00:24 04/08/19 00:24 04/08/19 00:24 04/08/19 00:24 04/08/19 00:24 Intake & Output 04/07/19 04/08/19 04/09/19 06:59 06:59 06:59 Intake Total 2250 6100 Output Total 200 2625 Balance 0 3475 Weight 64.2 kg 66.8 kg General appearance: PRESENT: no acute distress Head exam: PRESENT: normocephalic Respiratory exam: PRESENT: unlabored Neurological exam: PRESENT: alert, awake Psychiatric exam: PRESENT: appropriate affect Skin exam: PRESENT: normal color Results Laboratory Results: 04/07/19 04:28 04/07/19 04:28 04/06/19 04/07/19 04/07/19 09:16 09:15 14:25 Calcium 9.5 Urine Color Cancelled STRAW Urine Appearance Cancelled CLEAR Urine pH Cancelled 6.0 Ur Specific [place] Cancelled 1.011 Urine Protein Cancelled NEGATIVE Urine Glucose (UA) Cancelled NEGATIVE Urine Ketones Cancelled NEGATIVE Urine Blood Cancelled SMALL H Urine Nitrite Cancelled Ur Leukocyte Esterase Cancelled Urine WBC (Auto) Cancelled Urine RBC (Auto) Cancelled 1 Impressions: Renal Ultrasound 04/06/19 00:00 IMPRESSION: 1. No abnormality of the kidneys. 2. Wells catheter within the urinary bladder. 3. Cholelithiasis without other associated ancillary findings to indicate an acute cholecystitis. Lumbar Spine CT 04/06/19 13:16 IMPRESSION: Multiple lytic lesions throughout the lumbar spine with a large expansile lesion in the left L3 transverse process. Findings are most consistent with metastatic disease. Does the patient have a known primary? Femur X-Ray 04/06/19 13:17 IMPRESSION: Lytic lesion in the mid left femur suspicious for primary neoplasm or metastatic disease. Chest X-Ray 04/06/19 16:13 IMPRESSION: NO ACUTE RADIOGRAPHIC FINDING IN THE CHEST. Skeletal Survey 04/07/19 17:43 IMPRESSION: 1. Lytic lesions in the left humerus, lumbar spine and left femur. 2. Acute nondisplaced fracture of the right posterior-lateral 7th rib. Assessment & Plan - Diagnosis (1) Hypercalcemia Is this a current diagnosis for this admission?: Yes Plan: Now resolved. I will continue to monitor as outpatient. (2) Lytic bone lesion of femur Is this a current diagnosis for this admission?: Yes Plan: Skeletal survey with widespread lytic lesions. Still awaiting Myeloma panel. If this is negative, will search for primary cancer. All of this may be done as outpatient. (3) Low back pain Qualifiers: Chronicity: chronic Back pain laterality: midline Sciatica presence: without sciatica Qualified Code(s): M54.5 - Low back pain; G89.29 - Other chronic pain Is this a current diagnosis for this admission?: Yes Plan: I will increase MS Contin. I would recommend change to MSIR orally and then discharge with 2 weeks supply. I will be happy to continue these medications as outpatient. - Time Time Spent with patient: 15-24 minutes - Plan Summary Plan Summary: OK for discharge once pain is controlled. I will be happy to follow as outpatient.
[2019-04-08 08:16] LABS: ABSOLUTE EOSINOPHILS # (AUTO) 0.1 10^3/uL (0.0-0.6); ABSOLUTE LYMPHOCYTES (AUTO) 1.2 10^3/uL (0.5-4.7); ABSOLUTE NEUT (AUTO) 6.8 10^3/uL (1.7-8.2); BASOPHILS % (AUTO) 0.4 % (0-2); EOSINOPHILS % (AUTO) 1.3 % (0-6); HEMATOCRIT 26.6 % (36.0-47.0); HEMOGLOBIN 9.2 g/dL (12.0-15.5); LYMPHOCYTES % (AUTO) 12.7 % (13-45); MEAN CORPUSCULAR HEMOGLOBIN 31.7 pg (27.0-33.4); MEAN CORPUSCULAR HGB CONC 34.8 g/dL (32.0-36.0); MEAN CORPUSCULAR VOLUME 91 fl (80-97); MONOCYTES % (AUTO) 10.9 % (3-13); PLATELET COUNT 347 10^3/uL (150-450); RED BLOOD COUNT 2.92 10^6/uL (3.72-5.28); RED CELL DISTRIBUTION WIDTH 14.2 % (11.5-14.0); SEGMENTED NEUTROPHILS % (AUTO) 74.7 % (42-78); TOTAL CELLS COUNTED % (AUTO) 100 %; WHITE BLOOD COUNT 9.2 10^3/uL (4.0-10.5)
[2019-04-08] MEDS ORDERED: NORMAL SALINE 1000 ML 1,000 ML IV PRN (08:16)
[2019-04-08 08:32] LABS: ANION GAP 10 (5-19); BLOOD UREA NITROGEN 18 mg/dL (7-20); CARBON DIOXIDE 14 mmol/L (22-30); CHLORIDE 116 mmol/L (98-107); GLUCOSE 101 mg/dL (75-110)
[2019-04-08 08:43] LABS: POTASSIUM 2.8 mmol/L (3.6-5.0)
[2019-04-08] MEDS ORDERED: POTASSIUM CHLORIDE 10 MEQ TABLET.ER PO ONE ×5 (09:12→18:57)
[2019-04-08] MEDS ORDERED: LORAZEPAM 0.5 MG TABLET PO ONE (09:17)
[2019-04-08] MEDS: DOCUSATE SODIUM 100 MG CAPSULE PO SCH ×2 (10:30→18:58)
[2019-04-08] MEDS: MORPHINE SULFATE SR 15 MG TABLET PO SCH ×2 (10:30→21:15)
--- NOTE | 2019-04-08 15:48 | PDOC PROGRESS REPORT ---
Subjective Progress Note for:: 04/08/19 Subjective:: DANISH DOWLING is a 63 year old female with no significant past medical history presenting to ED complaining of progressively worsening bilateral hip and left lower extremity pain. Pain is described as constant, achy in nature, 10/10 on severity scale, worsened with any weightbearing or movement, relieved with ibuprofen. She is also c/o progressive weakness, fatigue, low appetite, weight loss of 30 pounds in the last 1 month, polydipsia and polyuria. This all started about 3 months ago with no apparent cause, denies any heavy lifting, trauma, chronic back pain, history of malignancy. She denies any headache, vision changes, numbness, tingling, focal neurological deficits, dysphagia, odynophagia, shortness of breath, chest pain, nausea, diarrhea, constipation or any urinary symptoms 04/07/2019. No acute events overnight. Patient reports improvement of back and lower extremity pain since being started on sustained-release morphine by oncology, denies any fever, chills, nausea, vomiting, diarrhea, constipation or any urinary symptoms. 04/08/2019. No acute events overnight. Patient complaining of generalized weakness and feeling anxious, denies any fever, chills, nausea, vomiting, diarrhea, constipation or any urinary symptoms. Could potentially be discharged home to follow-up with Dr. Bills as outpatient however patient's pressure is not optimized and her potassium is very low. Possible discharge home tomorrow. Reason For Visit: APRIL, HYPERCALCEMIA, METASTATIC DISEASE Physical Exam Vital Signs: Temp Pulse Resp BP Pulse Ox 99.6 F 104 H 16 173/72 H 97 04/08/19 08:00 04/08/19 12:05 04/08/19 12:05 04/08/19 08:00 04/08/19 12:05 Intake & Output 04/07/19 04/08/19 04/09/19 06:59 06:59 06:59 Intake Total 2250 6100 Output Total 200 2625 Balance 2049 3475 Weight 64.2 kg 66.8 kg General appearance: PRESENT: no acute distress, well-developed, well-nourished Head exam: PRESENT: atraumatic, normocephalic Respiratory exam: PRESENT: clear to auscultation cindy. ABSENT: rales, rhonchi, wheezes Cardiovascular exam: PRESENT: RRR. ABSENT: diastolic murmur, rubs, systolic murmur GI/Abdominal exam: PRESENT: normal bowel sounds, soft. ABSENT: distended, guarding, mass, organolmegaly, rebound, tenderness Extremities exam: PRESENT: full ROM. ABSENT: calf tenderness, clubbing, pedal edema Neurological exam: PRESENT: alert, awake, oriented to person, oriented to place, oriented to time, oriented to situation, CN II-XII grossly intact. ABSENT: motor sensory deficit Results Laboratory Results: 04/08/19 07:50 04/08/19 07:50 04/08/19 04/08/19 07:50 07:50 WBC 9.2 RBC 2.92 L Hgb 9.2 L Hct 26.6 L MCV 91 MCH 31.7 MCHC 34.8 RDW 14.2 H Plt Count 347 Seg Neutrophils % 74.7 Sodium 140.3 Potassium 2.8 L* Chloride 116 H Carbon Dioxide 14 L Anion Gap 10 BUN 18 Creatinine 0.69 Est GFR ( Amer) > 60 Glucose 101 Calcium 8.0 L Impressions: Renal Ultrasound 04/06/19 00:00 IMPRESSION: 1. No abnormality of the kidneys. 2. Wells catheter within the urinary bladder. 3. Cholelithiasis without other associated ancillary findings to indicate an acute cholecystitis. Lumbar Spine CT 04/06/19 13:16 IMPRESSION: Multiple lytic lesions throughout the lumbar spine with a large expansile lesion in the left L3 transverse process. Findings are most consistent with metastatic disease. Does the patient have a known primary? Femur X-Ray 04/06/19 13:17 IMPRESSION: Lytic lesion in the mid left femur suspicious for primary neoplasm or metastatic disease. Chest X-Ray 04/06/19 16:13 IMPRESSION: NO ACUTE RADIOGRAPHIC FINDING IN THE CHEST. Skeletal Survey 04/07/19 17:43 IMPRESSION: 1. Lytic lesions in the left humerus, lumbar spine and left femur. 2. Acute nondisplaced fracture of the right posterior-lateral 7th rib. Assessment and Plan - Diagnosis (1) Hypercalcemia Is this a current diagnosis for this admission?: Yes Plan: Resolved. Most likely hypercalcemia of malignancy given lytic bone lesions, anemia and APRIL patient most likely has multiple myeloma. Give 1 dose of zoledronic acid. PTH WNL. DC IV fluids. Monitor volume status. Calcium level tomorrow. (2) Anorexia Is this a current diagnosis for this admission?: Yes Plan: Mild improvement. Likely due to underlying malignancy. We will start on Megace. Consult dietitian. (3) Low back pain Qualifiers: Chronicity: chronic Back pain laterality: midline Sciatica presence: with out sciatica Qualified Code(s): M54.5 - Low back pain; G89.29 - Other chronic pain Is this a current diagnosis for this admission?: Yes Plan: Improving since being started on sustained-release morphine. Likely due to underlying malignancy. Supportive measures. Denies any focal neurological deficits. Denies any saddle paresthesias. Denies any incontinence or urinary retention. (4) Lytic bone lesion of femur Is this a current diagnosis for this admission?: Yes Plan: Most likely underlying malignancy possibly multiple myeloma given anemia, APRIL, hypercalcemia. Skeletal survey positive for diffuse lytic lesions. Pending UPEP SPEP. Beta-2 microglobulin. As per oncology patient could be discharged home to follow-up with oncology as outpatient. (5) APRIL (acute kidney injury) Is this a current diagnosis for this admission?: Yes Plan: Resolved. Likely due to underlying malignancy, multiple myeloma. Renal ultrasound unremarkable. Daily BMP. Avoid nephrotoxic meds.
[2019-04-08] MEDS ORDERED: LORAZEPAM 0.5 MG TABLET PO PRN (16:15)
[2019-04-08 16:37] LABS: ALBUMIN URINE 12.9 % (.); ALPHA-1-GLOBULIN URINE 12.4 % (.); ALPHA-2-GLOBULIN UR 23.8 % (.); GAMMA GLOBULIN UR 17.2 % (.); M-SPIKE % URINE Not Observed % (Not Observ); PROTEIN TOTAL URINE 56.9 mg/dL (Not Estab.)
[2019-04-09] MEDS: PANTOPRAZOLE SODIUM 40 MG TABLET.DR PO SCH ×2 (05:41→16:06)
[2019-04-09] MEDS: HEPARIN SOD (PORCINE) 5,000 UNIT/ML 1 ML VIAL SUBCUT SCH ×3 (05:41→21:58)
[2019-04-09] MEDS: MORPHINE SULFATE 10 MG/ML INJ IV PRN ×2 (05:41→13:27)
[2019-04-09 06:44] LABS: ANION GAP 6 (5-19); BLOOD UREA NITROGEN 15 mg/dL (7-20); CALCIUM 7.8 mg/dL (8.4-10.2); CARBON DIOXIDE 17 mmol/L (22-30); CHLORIDE 117 mmol/L (98-107); GLUCOSE 98 mg/dL (75-110); POTASSIUM 3.9 mmol/L (3.6-5.0)
[2019-04-09] MEDS: POTASSIUM CHLORIDE 10 MEQ TABLET.ER PO SCH (09:28)
[2019-04-09] MEDS: DOCUSATE SODIUM 100 MG CAPSULE PO SCH ×2 (09:28→17:07)
[2019-04-09] MEDS: MORPHINE SULFATE SR 15 MG TABLET PO SCH (09:29)
[2019-04-09] MEDS ORDERED: CARVEDILOL 6.25 MG TABLET PO SCH (10:00)
--- NOTE | 2019-04-09 11:35 | PDOC PROGRESS REPORT ---
Subjective Progress Note for:: 04/09/19 Subjective:: DANISH DOWLING is a 63 year old female with no significant past medical history presenting to ED complaining of progressively worsening bilateral hip and left lower extremity pain. Pain is described as constant, achy in nature, 10/10 on severity scale, worsened with any weightbearing or movement, relieved with ibuprofen. She is also c/o progressive weakness, fatigue, low appetite, weight loss of 30 pounds in the last 1 month, polydipsia and polyuria. This all started about 3 months ago with no apparent cause, denies any heavy lifting, trauma, chronic back pain, history of malignancy. She denies any headache, vision changes, numbness, tingling, focal neurological deficits, dysphagia, odynophagia, shortness of breath, chest pain, nausea, diarrhea, constipation or any urinary symptoms 04/07/2019. No acute events overnight. Patient reports improvement of back and lower extremity pain since being started on sustained-release morphine by oncology, denies any fever, chills, nausea, vomiting, diarrhea, constipation or any urinary symptoms. 04/08/2019. No acute events overnight. Patient complaining of generalized weakness and feeling anxious, denies any fever, chills, nausea, vomiting, diarrhea, constipation or any urinary symptoms. Could potentially be discharged home to follow-up with Dr. Bills as outpatient however patient's pressure is not optimized and her potassium is very low. Possible discharge home tomorrow. 04/09/2019. No acute events overnight. Patient is stating that she is feeling better than yesterday, still very weak and not able to ambulate much. She still endorsing very low appetite at stating that she would like to be transitioned to SNF as she does not have a place to go to and also she is not sure that she will be able to take care of her son on her own. Still complaining of bilateral hip and left lower extremity pain otherwise denies any fever, chills, nausea, vomiting, diarrhea, constipation or any urinary symptoms. Reason For Visit: APRIL, HYPERCALCEMIA, METASTATIC DISEASE Physical Exam Vital Signs: Temp Pulse Resp BP Pulse Ox 98.5 F 107 H 14 121/83 97 04/09/19 07:22 04/09/19 07:22 04/09/19 07:22 04/09/19 07:22 04/09/19 07:22 Intake & Output 04/08/19 04/09/19 04/10/19 06:59 06:59 06:59 Intake Total 6100 600 Output Total 2625 600 Balance 3475 0 Weight 66.8 kg 66 kg General appearance: PRESENT: no acute distress, well-developed, well-nourished Head exam: PRESENT: atraumatic, normocephalic Respiratory exam: PRESENT: clear to auscultation cindy. ABSENT: rales, rhonchi, wheezes Cardiovascular exam: PRESENT: RRR. ABSENT: diastolic murmur, rubs, systolic mu rmur Pulses: PRESENT: normal dorsalis pedis pul GI/Abdominal exam: PRESENT: normal bowel sounds, soft. ABSENT: distended, guarding, mass, organolmegaly, rebound, tenderness Musculoskeletal exam: PRESENT: tenderness - Bilateral hip and left proximal lower extremity. Neurological exam: PRESENT: alert, awake, oriented to person, oriented to place, oriented to time, oriented to situation, CN II-XII grossly intact, other - Generalized weakness. No focal neurological deficits.. ABSENT: motor sensory deficit Results Laboratory Results: 04/08/19 07:50 04/09/19 06:00 04/08/19 04/09/19 15:52 06:00 Sodium 140.3 Potassium 3.7 3.9 Chloride 117 H Carbon Dioxide 17 L Anion Gap 6 BUN 15 Creatinine 0.75 Est GFR ( Amer) > 60 Glucose 98 Calcium 7.8 L Impressions: Renal Ultrasound 04/06/19 00:00 IMPRESSION: 1. No abnormality of the kidneys. 2. Wells catheter within the urinary bladder. 3. Cholelithiasis without other associated ancillary findings to indicate an acute cholecystitis. Lumbar Spine CT 04/06/19 13:16 IMPRESSION: Multiple lytic lesions throughout the lumbar spine with a large expansile lesion in the left L3 transverse process. Findings are most consistent with metastatic disease. Does the patient have a known primary? Femur X-Ray 04/06/19 13:17 IMPRESSION: Lytic lesion in the mid left femur suspicious for primary neoplasm or metastatic disease. Chest X-Ray 04/06/19 16:13 IMPRESSION: NO ACUTE RADIOGRAPHIC FINDING IN THE CHEST. Skeletal Survey 04/07/19 17:43 IMPRESSION: 1. Lytic lesions in the left humerus, lumbar spine and left femur. 2. Acute nondisplaced fracture of the right posterior-lateral 7th rib. Assessment and Plan - Diagnosis (1) Hypercalcemia Is this a current diagnosis for this admission?: Yes Plan: Resolved. Most likely hypercalcemia of malignancy given lytic bone lesions, anemia and APRIL patient most likely has multiple myeloma. Received 1 dose of zoledronic acid. PTH WNL. DC IV fluids. Monitor volume status. Calcium level tomorrow. (2) Anorexia Is this a current diagnosis for this admission?: Yes Plan: Mild improvement. Likely due to underlying malignancy. Continue Megace. Consult dietitian. (3) Low back pain Qualifiers: Chronicity: chronic Back pain laterality: midline Sciatica presence: without sciatica Qualified Code(s): M54.5 - Low back pain; G89.29 - Other chronic pain Is this a current diagnosis for this admission?: Yes Plan: Improving since being started on sustained-release morphine. Likely due to underlying malignancy. Supportive measures. Denies any focal neurological deficits. Denies any saddle paresthesias. Denies any incontinence or urinary retention. (4) Lytic bone lesion of femur Is this a current diagnosis for this admission?: Yes Plan: Most likely underlying malignancy possibly multiple myeloma given anemia, APRIL, hypercalcemia. Skeletal survey positive for diffuse lytic lesions. Pending UPEP SPEP. Beta-2 microglobulin. As per oncology patient could be discharged home to follow-up with oncology as outpatient. (5) APRIL (acute kidney injury) Is this a current diagnosis for this admission?: Yes Plan: Resolved. Likely due to underlying malignancy, multiple myeloma. Renal ultrasound unremarkable. Daily BMP. Avoid nephrotoxic meds. (6) Malignancy Is this a current diagnosis for this admission?: Yes Plan: Most likely multiple myeloma. This based on presentation, labs and imaging. Pending SPEP UPEP. Oncology on board. Outpatient follow-up recommended.
[2019-04-09] MEDS: MEGESTROL ACETATE SUSP 400 MG/10 ML UDCUP PO SCH ×2 (12:39→12:41)
[2019-04-09] MEDS: MULTIVITAMINS W-IRON TABLET, CHEWABLE PO SCH (12:41)
--- NOTE | 2019-04-09 14:23 | PDOC PROGRESS REPORT ---
Subjective Progress Note for:: 04/09/19 Subjective:: Patient states that the pain is better. She is feeling better today. However, she is still not able to ambulate or safely transfer to bedside commode without severe pain. ROS: She denies any constipation or dyspnea. Sister is at bedside today Reason For Visit: APRIL, HYPERCALCEMIA, METASTATIC DISEASE Physical Exam Vital Signs: Temp Pulse Resp BP Pulse Ox 98.2 F 104 H 14 157/83 H 97 04/09/19 12:05 04/09/19 12:05 04/09/19 07:22 04/09/19 12:05 04/09/19 12:05 Intake & Output 04/08/19 04/09/19 04/10/19 06:59 06:59 06:59 Intake Total 6100 600 120 Output Total 2625 600 Balance 3475 0 120 Weight 66.8 kg 66 kg General appearance: PRESENT: no acute distress, well-developed, well-nourished Head exam: PRESENT: normocephalic Eye exam: PRESENT: EOMI Respiratory exam: PRESENT: unlabored Extremities exam: ABSENT: pedal edema Neurological exam: PRESENT: alert, awake Psychiatric exam: PRESENT: appropriate affect Skin exam: PRESENT: normal color Results Laboratory Results: 04/08/19 07:50 04/09/19 06:00 04/08/19 04/09/19 04/09/19 15:52 06:00 06:00 Sodium 140.3 Potassium 3.7 3.9 Chloride 117 H Carbon Dioxide 17 L Anion Gap 6 BUN 15 Creatinine 0.75 Est GFR ( Amer) > 60 Glucose 98 Calcium 7.8 L TSH < 0.01 L Impressions: Renal Ultrasound 04/06/19 00:00 IMPRESSION: 1. No abnormality of the kidneys. 2. Wells catheter within the urinary bladder. 3. Cholelithiasis without other associated ancillary findings to indicate an acute cholecystitis. Lumbar Spine CT 04/06/19 13:16 IMPRESSION: Multiple lytic lesions throughout the lumbar spine with a large expansile lesion in the left L3 transverse process. Findings are most consistent with metastatic disease. Does the patient have a known primary? Femur X-Ray 04/06/19 13:17 IMPRESSION: Lytic lesion in the mid left femur suspicious for primary neoplasm or metastatic disease. Chest X-Ray 04/06/19 16:13 IMPRESSION: NO ACUTE RADIOGRAPHIC FINDING IN THE CHEST. Skeletal Survey 04/07/19 17:43 IMPRESSION: 1. Lytic lesions in the left humerus, lumbar spine and left femur. 2. Acute nondisplaced fracture of the right posterior-lateral 7th rib. Assessment & Plan - Diagnosis (1) Hypercalcemia Is this a current diagnosis for this admission?: Yes Plan: resolved. Will need to start Ca supplements as outpatient, but may wait until her next dose of bisphosphonate. (2) Lytic bone lesion of femur Is this a current diagnosis for this admission?: Yes Plan: This appears to be multiple myeloma. I am awaiting conclusive labs to verify this. These may take a week to come back. Plan to start treatment JAVED as outpatient, once diagnosis has been verified. (3) Low back pain Qualifiers: Chronicity: chronic Back pain laterality: midline Sciatica presence: without sciatica Qualified Code(s): M54.5 - Low back pain; G89.29 - Other chronic pain Is this a current diagnosis for this admission?: Yes Plan: Continue MS Contin 30 mg BID. Change IV morphine PRN to PO morphine PRN. I have left Rx for these narcotics in patient's chart to be filled at discharge. - Time Time Spent with patient: 15-24 minutes - Plan Summary Plan Summary: Patient was discussed at length with sister. They are trying to find a safe place for her to stay on discharge. Looking into various family members. I also spoke with social work associate about need for insurance applications/medicaid
[2019-04-09] MEDS: MORPHINE SULFATE IR 15 MG TABLET PO PRN (17:07)
[2019-04-09] MEDS: CARVEDILOL 6.25 MG TABLET PO SCH (21:57)
[2019-04-10] MEDS: MORPHINE SULFATE SR 15 MG TABLET PO SCH ×4 (00:03→22:01)
[2019-04-10] MEDS: MORPHINE SULFATE IR 15 MG TABLET PO PRN (06:16)
[2019-04-10] MEDS: PANTOPRAZOLE SODIUM 40 MG TABLET.DR PO SCH ×2 (06:16→17:59)
[2019-04-10] MEDS: HEPARIN SOD (PORCINE) 5,000 UNIT/ML 1 ML VIAL SUBCUT SCH ×3 (06:17→22:03)
[2019-04-10 08:44] LABS: ANION GAP 9 (5-19); BLOOD UREA NITROGEN 16 mg/dL (7-20); CARBON DIOXIDE 14 mmol/L (22-30); CHLORIDE 115 mmol/L (98-107); GLUCOSE 91 mg/dL (75-110); POTASSIUM 4.4 mmol/L (3.6-5.0)
[2019-04-10] MEDS: MULTIVITAMINS W-IRON TABLET, CHEWABLE PO SCH (09:25)
[2019-04-10] MEDS: DOCUSATE SODIUM 100 MG CAPSULE PO SCH ×2 (09:25→17:59)
[2019-04-10] MEDS: MEGESTROL ACETATE SUSP 400 MG/10 ML UDCUP PO SCH (09:26)
[2019-04-10] MEDS: CARVEDILOL 6.25 MG TABLET PO SCH ×2 (09:26→22:02)
[2019-04-10] MEDS: POTASSIUM CHLORIDE 10 MEQ TABLET.ER PO SCH (09:26)
--- NOTE | 2019-04-10 10:43 | PDOC PROGRESS REPORT ---
Subjective Progress Note for:: 04/10/19 Subjective:: DANISH DOWLING is a 63 year old female with no significant past medical history presenting to ED complaining of progressively worsening bilateral hip and left lower extremity pain. Pain is described as constant, achy in nature, 10/10 on severity scale, worsened with any weightbearing or movement, relieved with ibuprofen. She is also c/o progressive weakness, fatigue, low appetite, weight loss of 30 pounds in the last 1 month, polydipsia and polyuria. This all started about 3 months ago with no apparent cause, denies any heavy lifting, trauma, chronic back pain, history of malignancy. She denies any headache, vision changes, numbness, tingling, focal neurological deficits, dysphagia, odynophagia, shortness of breath, chest pain, nausea, diarrhea, constipation or any urinary symptoms 04/07/2019. No acute events overnight. Patient reports improvement of back and lower extremity pain since being started on sustained-release morphine by oncology, denies any fever, chills, nausea, vomiting, diarrhea, constipation or any urinary symptoms. 04/08/2019. No acute events overnight. Patient complaining of generalized weakness and feeling anxious, denies any fever, chills, nausea, vomiting, diarrhea, constipation or any urinary symptoms. Could potentially be discharged home to follow-up with Dr. Bills as outpatient however patient's pressure is not optimized and her potassium is very low. Possible discharge home tomorrow. 04/09/2019. No acute events overnight. Patient is stating that she is feeling better than yesterday, still very weak and not able to ambulate much. She still endorsing very low appetite at stating that she would like to be transitioned to SNF as she does not have a place to go to and also she is not sure that she will be able to take care of her son on her own. Still complaining of bilateral hip and left lower extremity pain otherwise denies any fever, chills, nausea, vomiting, diarrhea, constipation or any urinary symptoms. 04/10/2019. No acute events overnight. Appetite improving. Still complaining of bilateral hip and left lower extremity pain, able to ambulate, p.o. tolerant having normal bowel movement. Patient currently does not have a place to go unfortunately not be transferred to rehab due to the financial reasons, patient's son who is living at [facility] will be taking her mother to live with him, possibly Thursday or Thursday. Reason For Visit: APRIL, HYPERCALCEMIA, METASTATIC DISEASE Physical Exam Vital Signs: Temp Pulse Resp BP Pulse Ox 99.0 F 91 16 131/76 H 98 04/10/19 07:41 04/10/19 07:41 04/10/19 07:41 04/10/19 07:41 04/10/19 07:41 Intake & Output 04/09/19 04/10/19 04/11/19 06:59 06:59 06:59 Intake Total 600 340 Output Total 600 450 Balance 0 -110 Weight 66 kg 63.7 kg General appearance: PRESENT: no acute distress, well-developed, well-nourished Head exam: PRESENT: atraumatic, normocephalic Respiratory exam: PRESENT: clear to auscultation cindy. ABSENT: rales, rhonchi, wheezes Cardiovascular exam: PRESENT: RRR. ABSENT: diastolic murmur, rubs, systolic murmur GI/Abdominal exam: PRESENT: normal bowel sounds, soft. ABSENT: distended, guarding, mass, organolmegaly, rebound, tenderness Extremities exam: PRESENT: full ROM, tenderness. ABSENT: calf tenderness, clubbing, pedal edema Musculoskeletal exam: PRESENT: full ROM, normal inspection Neurological exam: PRESENT: alert, awake, oriented to person, oriented to place, oriented to time, oriented to situation, CN II-XII grossly intact. ABSENT: motor sensory deficit Results Laboratory Results: 04/08/19 07:50 04/10/19 07:47 04/09/19 04/10/19 06:00 07:47 Sodium 137.9 Potassium 4.4 Chloride 115 H Carbon Dioxide 14 L Anion Gap 9 BUN 16 Creatinine 0.68 Est GFR ( Amer) > 60 Glucose 91 Calcium 8.0 L TSH < 0.01 L Impressions: Renal Ultrasound 04/06/19 00:00 IMPRESSION: 1. No abnormality of the kidneys. 2. Wells catheter within the urinary bladder. 3. Cholelithiasis without other associated ancillary findings to indicate an acute cholecystitis. Lumbar Spine CT 04/06/19 13:16 IMPRESSION: Multiple lytic lesions throughout the lumbar spine with a large expansile lesion in the left L3 transverse process. Findings are most consistent with metastatic disease. Does the patient have a known primary? Femur X-Ray 04/06/19 13:17 IMPRESSION: Lytic lesion in the mid left femur suspicious for primary neoplasm or metastatic disease. Chest X-Ray 04/06/19 16:13 IMPRESSION: NO ACUTE RADIOGRAPHIC FINDING IN THE CHEST. Skeletal Survey 04/07/19 17:43 IMPRESSION: 1. Lytic lesions in the left humerus, lumbar spine and left femur. 2. Acute nondisplaced fracture of the right posterior-lateral 7th rib. Assessment and Plan - Diagnosis (1) Hypercalcemia Is this a current diagnosis for this admission?: Yes Plan: Resolved. Most likely hypercalcemia of malignancy given lytic bone lesions, anemia and APRIL patient most likely has multiple myeloma. Received 1 dose of zoledronic acid. PTH WNL. DC IV fluids. Monitor volume status. Calcium level tomorrow. (2) Anorexia Is this a current diagnosis for this admission?: Yes Plan: Mild improvement. Likely due to underlying malignancy. Continue Megace. Consult dietitian. (3) Low back pain Qualifiers: Chronicity: chronic Back pain laterality: midline Sciatica presence: without sciatica Qualified Code(s): M54.5 - Low back pain; G89.29 - Other chronic pain Is this a current diagnosis for this admission?: Yes Plan: Improving since being started on sustained-release morphine. Likely due to underlying malignancy. Supportive measures. Denies any focal neurological deficits. Denies any saddle paresthesias. Denies any incontinence or urinary retention. (4) Lytic bone lesion of femur Is this a current diagnosis for this admission?: Yes Plan: Most likely underlying malignancy possibly multiple myeloma given anemia, APRIL, hypercalcemia. Skeletal survey positive for diffuse lytic lesions. Pending UPEP SPEP. Beta-2 microglobulin. As per oncology patient could be discharged home to follow-up with oncology as outpatient. (5) APRIL (acute kidney injury) Is this a current diagnosis for this admission?: Yes Plan: Resolved. Likely due to underlying malignancy, multiple myeloma. Renal ultrasound unremarkable. Daily BMP. Avoid nephrotoxic meds. (6) Malignancy Is this a current diagnosis for this admission?: Yes Plan: Most likely multiple myeloma. This based on presentation, labs and imaging. Pending SPEP UPEP. Oncology on board. Outpatient follow-up recommended.
[2019-04-11] MEDS: MORPHINE SULFATE IR 15 MG TABLET PO PRN ×2 (04:09→18:20)
[2019-04-11 05:13] LABS: HEMATOCRIT 22.6 % (36.0-47.0); MEAN CORPUSCULAR HEMOGLOBIN 31.7 pg (27.0-33.4); MEAN CORPUSCULAR HGB CONC 34.5 g/dL (32.0-36.0); MEAN CORPUSCULAR VOLUME 92 fl (80-97); PLATELET COUNT 388 10^3/uL (150-450); RED BLOOD COUNT 2.46 10^6/uL (3.72-5.28); RED CELL DISTRIBUTION WIDTH 14.5 % (11.5-14.0); WHITE BLOOD COUNT 8.6 10^3/uL (4.0-10.5)
[2019-04-11 05:18] LABS: HEMOGLOBIN 7.8 g/dL (12.0-15.5)
[2019-04-11 05:30] LABS: ALBUMIN 2.7 g/dL (3.5-5.0); ALKALINE PHOSPHATASE 270 U/L (38-126); ANION GAP 9 (5-19); ASPARTATE AMINO TRANSFERASE 92 U/L (14-36); BILIRUBIN,TOTAL 0.3 mg/dL (0.2-1.3); BLOOD UREA NITROGEN 17 mg/dL (7-20); CALCIUM 8.2 mg/dL (8.4-10.2); CARBON DIOXIDE 15 mmol/L (22-30); CHLORIDE 115 mmol/L (98-107); GLUCOSE 86 mg/dL (75-110); POTASSIUM 4.8 mmol/L (3.6-5.0); TOTAL PROTEIN 5.4 g/dL (6.3-8.2)
[2019-04-11] MEDS: HEPARIN SOD (PORCINE) 5,000 UNIT/ML 1 ML VIAL SUBCUT SCH ×3 (06:17→21:53)
[2019-04-11] MEDS: PANTOPRAZOLE SODIUM 40 MG TABLET.DR PO SCH ×2 (06:17→17:33)
[2019-04-11] MEDS ORDERED: NORMAL SALINE 250 ML IV PRN (08:37)
--- NOTE | 2019-04-11 08:46 | PDOC PROGRESS REPORT ---
Subjective Progress Note for:: 04/11/19 Subjective:: Patient states that she is feeling better. She believe she will be able to go home later today with her son. Pain is controlled, but still worse with movement. She has been trying to get up to walk. ROS: No constipation. No dyspnea. Reason For Visit: APRIL, HYPERCALCEMIA, METASTATIC DISEASE Physical Exam Vital Signs: Temp Pulse Resp BP Pulse Ox 98.8 F 87 16 127/73 H 98 04/11/19 07:53 04/11/19 07:53 04/11/19 07:53 04/11/19 07:53 04/11/19 07:53 Intake & Output 04/10/19 04/11/19 04/12/19 06:59 06:59 06:59 Intake Total 340 360 Output Total 450 350 Balance -110 10 Weight 63.7 kg 70.7 kg General appearance: PRESENT: no acute distress, well-developed, well-nourished Head exam: PRESENT: normocephalic Respiratory exam: PRESENT: unlabored Neurological exam: PRESENT: alert, awake Psychiatric exam: PRESENT: appropriate affect Skin exam: PRESENT: normal color Results Laboratory Results: 04/11/19 04:45 04/11/19 04:45 04/10/19 04/11/19 04/11/19 07:47 04:45 04:45 WBC 8.6 RBC 2.46 L Hgb 7.8 L Hct 22.6 L MCV 92 MCH 31.7 MCHC 34.5 RDW 14.5 H Plt Count 388 Sodium 137.9 138.6 Potassium 4.4 4.8 Chloride 115 H 115 H Carbon Dioxide 14 L 15 L Anion Gap 9 9 BUN 16 17 Creatinine 0.68 0.75 Est GFR ( Amer) > 60 > 60 Glucose 91 86 Calcium 8.0 L 8.2 L Total Bilirubin 0.3 AST 92 H Alkaline Phosphatase 270 H Total Protein 5.4 L Albumin 2.7 L Impressions: Renal Ultrasound 04/06/19 00:00 IMPRESSION: 1. No abnormality of the kidneys. 2. Wells catheter within the urinary bladder. 3. Cholelithiasis without other associated ancillary findings to indicate an acute cholecystitis. Lumbar Spine CT 04/06/19 13:16 IMPRESSION: Multiple lytic lesions throughout the lumbar spine with a large expansile lesion in the left L3 transverse process. Findings are most consistent with metastatic disease. Does the patient have a known primary? Femur X-Ray 04/06/19 13:17 IMPRESSION: Lytic lesion in the mid left femur suspicious for primary neoplasm or metastatic disease. Chest X-Ray 04/06/19 16:13 IMPRESSION: NO ACUTE RADIOGRAPHIC FINDING IN THE CHEST. Skeletal Survey 04/07/19 17:43 IMPRESSION: 1. Lytic lesions in the left humerus, lumbar spine and left femur. 2. Acute nondisplaced fracture of the right posterior-lateral 7th rib. Assessment & Plan - Diagnosis (1) Hypercalcemia Is this a current diagnosis for this admission?: Yes Plan: resolved. (2) Lytic bone lesion of femur Is this a current diagnosis for this admission?: Yes (3) Low back pain Qualifiers: Chronicity: chronic Back pain laterality: midline Sciatica presence: without sciatica Qualified Code(s): M54.5 - Low back pain; G89.29 - Other chronic pain Is this a current diagnosis for this admission?: Yes Plan: Pain appears well controlled with current meds. Continue without changes. (4) Anemia Qualifiers: Other causes of anemia: chronic disease, neoplastic Is this a current diagnosis for this admission?: Yes Plan: I will transfuse 2 units pRBCs today. Anemia is most likely napier to the myeloma. However, still awaiting final confirmation with labs. - Time Time Spent with patient: 15-24 minutes - Plan Summary Plan Summary: I will see her as outpatient. Agree with plans for discharge to stay with son. Follow-up has been arrange in my office.
[2019-04-11] MEDS: POTASSIUM CHLORIDE 10 MEQ TABLET.ER PO SCH (09:22)
[2019-04-11] MEDS: MORPHINE SULFATE SR 15 MG TABLET PO SCH ×2 (09:22→21:53)
[2019-04-11] MEDS: MULTIVITAMINS W-IRON TABLET, CHEWABLE PO SCH (09:22)
[2019-04-11] MEDS: CARVEDILOL 6.25 MG TABLET PO SCH ×2 (09:22→21:53)
[2019-04-11] MEDS: DOCUSATE SODIUM 100 MG CAPSULE PO SCH ×2 (09:22→17:33)
[2019-04-11] MEDS: MEGESTROL ACETATE SUSP 400 MG/10 ML UDCUP PO SCH (09:23)
[2019-04-11 10:34] LABS: ALBUMIN 2.8 g/dL (3.5-5.0); ALKALINE PHOSPHATASE 272 U/L (38-126); ANION GAP 9 (5-19); ASPARTATE AMINO TRANSFERASE 120 U/L (14-36); BILIRUBIN,DIRECT 0.1 mg/dL (0.0-0.4); BILIRUBIN,TOTAL 0.4 mg/dL (0.2-1.3); BLOOD UREA NITROGEN 17 mg/dL (7-20); CALCIUM 8.2 mg/dL (8.4-10.2); CARBON DIOXIDE 17 mmol/L (22-30); CHLORIDE 113 mmol/L (98-107); GLUCOSE 95 mg/dL (75-110); POTASSIUM 4.7 mmol/L (3.6-5.0); TOTAL PROTEIN 5.6 g/dL (6.3-8.2)
--- NOTE | 2019-04-11 15:23 | PDOC PROGRESS REPORT ---
Subjective Progress Note for:: 04/11/19 Subjective:: DANISH DOWLING is a 63 year old female with no significant past medical history presenting to ED complaining of progressively worsening bilateral hip and left lower extremity pain. Pain is described as constant, achy in nature, 10/10 on severity scale, worsened with any weightbearing or movement, relieved with ibuprofen. She is also c/o progressive weakness, fatigue, low appetite, weight loss of 30 pounds in the last 1 month, polydipsia and polyuria. This all started about 3 months ago with no apparent cause, denies any heavy lifting, trauma, chronic back pain, history of malignancy. She denies any headache, vision changes, numbness, tingling, focal neurological deficits, dysphagia, odynophagia, shortness of breath, chest pain, nausea, diarrhea, constipation or any urinary symptoms 04/07/2019. No acute events overnight. Patient reports improvement of back and lower extremity pain since being started on sustained-release morphine by oncology, denies any fever, chills, nausea, vomiting, diarrhea, constipation or any urinary symptoms. 04/08/2019. No acute events overnight. Patient complaining of generalized weakness and feeling anxious, denies any fever, chills, nausea, vomiting, diarrhea, constipation or any urinary symptoms. Could potentially be discharged home to follow-up with Dr. Bills as outpatient however patient's pressure is not optimized and her potassium is very low. Possible discharge home tomorrow. 04/09/2019. No acute events overnight. Patient is stating that she is feeling better than yesterday, still very weak and not able to ambulate much. She still endorsing very low appetite at stating that she would like to be transitioned to SNF as she does not have a place to go to and also she is not sure that she will be able to take care of her son on her own. Still complaining of bilateral hip and left lower extremity pain otherwise denies any fever, chills, nausea, vomiting, diarrhea, constipation or any urinary symptoms. 04/10/2019. No acute events overnight. Appetite improving. Still complaining of bilateral hip and left lower extremity pain, able to ambulate, p.o. tolerant having normal bowel movement. Patient currently does not have a place to go unfortunately not be transferred to rehab due to the financial reasons, patient's son who is living at [facility] will be taking her mother to live with him, possibly Thursday or Thursday. 04/11/2019. No acute events overnight. Appetite improving. Still complaining of bilateral hip and left lower extremity pain, improving compared to admission, denies any fever, chills, nausea, vomiting, diarrhea, constipation or any urinary symptoms. Patient does not have a place to go, has decided to move in with her son, waiting for her son to pick her up possibly today or tomorrow. Reason For Visit: APRIL, HYPERCALCEMIA, METASTATIC DISEASE Physical Exam Vital Signs: Temp Pulse Resp BP Pulse Ox 98.3 F 86 16 131/89 H 98 04/11/19 14:32 04/11/19 14:32 04/11/19 14:32 04/11/19 14:32 04/11/19 14:32 Intake & Output 04/10/19 04/11/19 04/12/19 06:59 06:59 06:59 Intake Total 340 360 0 Output Total 450 350 Balance -110 10 0 Weight 63.7 kg 70.7 kg General appearance: PRESENT: no acute distress, well-developed, well-nourished Head exam: PRESENT: atraumatic, normocephalic Respiratory exam: PRESENT: clear to auscultation cindy. ABSENT: rales, rhonchi, wheezes Cardiovascular exam: PRESENT: RRR. ABSENT: diastolic murmur, rubs, systolic murmur GI/Abdominal exam: PRESENT: normal bowel sounds, soft. ABSENT: distended, guarding, mass, organolmegaly, rebound, tenderness Extremities exam: PRESENT: full ROM, tenderness. ABSENT: calf tenderness, clubbing, pedal edema Neurological exam: PRESENT: alert, awake, oriented to person, oriented to place, oriented to time, oriented to situation, CN II-XII grossly intact. ABSENT: motor sensory deficit Results Laboratory Results: 04/11/19 04:45 04/11/19 09:48 04/11/19 04/11/19 04/11/19 04:45 04:45 09:48 WBC 8.6 RBC 2.46 L Hgb 7.8 L Hct 22.6 L MCV 92 MCH 31.7 MCHC 34.5 RDW 14.5 H Plt Count 388 Sodium 138.6 139.0 Potassium 4.8 4.7 Chloride 115 H 113 H Carbon Dioxide 15 L 17 L Anion Gap 9 9 BUN 17 17 Creatinine 0.75 0.76 Est GFR ( Amer) > 60 > 60 Glucose 86 95 Calcium 8.2 L 8.2 L Total Bilirubin 0.3 0.4 AST 92 H 120 H Alkaline Phosphatase 270 H 272 H Total Protein 5.4 L 5.6 L Albumin 2.7 L 2.8 L Blood Type Antibody Screen 04/11/19 09:48 WBC RBC Hgb Hct MCV MCH MCHC RDW Plt Count Sodium Potassium Chloride Carbon Dioxide Anion Gap BUN Creatinine Est GFR ( Amer) Glucose Calcium Total Bilirubin AST Alkaline Phosphatase Total Protein Albumin Blood Type AB POSITIVE Antibody Screen NEGATIVE Impressions: Renal Ultrasound 04/06/19 00:00 IMPRESSION: 1. No abnormality of the kidneys. 2. Wells catheter within the urinary bladder. 3. Cholelithiasis without other associated ancillary findings to indicate an acute cholecystitis. Lumbar Spine CT 04/06/19 13:16 IMPRESSION: Multiple lytic lesions throughout the lumbar spine with a large expansile lesion in the left L3 transverse process. Findings are most consistent with metastatic disease. Does the patient have a known primary? Femur X-Ray 04/06/19 13:17 IMPRESSION: Lytic lesion in the mid left femur suspicious for primary neoplasm or metastatic disease. Chest X-Ray 04/06/19 16:13 IMPRESSION: NO ACUTE RADIOGRAPHIC FINDING IN THE CHEST. Skeletal Survey 04/07/19 17:43 IMPRESSION: 1. Lytic lesions in the left humerus, lumbar spine and left femur. 2. Acute nondisplaced fracture of the right posterior-lateral 7th rib. Assessment and Plan - Diagnosis (1) Anemia Qualifiers: Other causes of anemia: chronic disease, neoplastic Is this a current diagnosis for this admission?: Yes Plan: Denies any easy bruising, nosebleeds, hematemesis, hemoptysis, vaginal bleed, melena or hematochezia. Likely related to underlying malignancy. Plan to transfuse 2 PRBC. Monitor H&H. Supportive transfusions. (2) Hypercalcemia Is this a current diagnosis for this admission?: Yes Plan: Resolved. Most likely hypercalcemia of malignancy given lytic bone lesions, anemia and APRIL patient most likely has multiple myeloma. Received 1 dose of zoledronic acid. PTH WNL. DC IV fluids. Monitor volume status. Calcium level tomorrow. (3) Anorexia Is this a current diagnosis for this admission?: Yes Plan: Mild improvement. Likely due to underlying malignancy. Continue Megace. Consult dietitian. (4) Low back pain Qualifiers: Chronicity: chronic Back pain laterality: midline Sciatica presence: without sciatica Qualified Code(s): M54.5 - Low back pain; G89.29 - Other chronic pain Is this a current diagnosis for this admission?: Yes Plan: Improving since being started on sustained-release morphine. Likely due to underlying malignancy. Supportive measures. Denies any focal neurological deficits. Denies any saddle paresthesias. Denies any incontinence or urinary retention. (5) Lytic bone lesion of femur Is this a current diagnosis for this admission?: Yes Plan: Most likely underlying malignancy possibly multiple myeloma given anemia, APRIL, hypercalcemia. Skeletal survey positive for diffuse lytic lesions. Pending UPEP SPEP. Beta-2 microglobulin. As per oncology patient could be discharged home to follow-up with oncology as outpatient. (6) APRIL (acute kidney injury) Is this a current diagnosis for this admission?: Yes Plan: Resolved. Likely due to underlying malignancy, multiple myeloma. Renal ultrasound unremarkable. Daily BMP. Avoid nephrotoxic meds. (7) Malignancy Is this a current diagnosis for this admission?: Yes Plan: Most likely multiple myeloma. This based on presentation, labs and imaging. Pending SPEP UPEP. Oncology on board. Outpatient follow-up recommended.
[2019-04-11 15:36] LABS: A/G RATIO. 1.1 (0.7-1.7); ALBUMIN 3 2.8 g/dL (2.9-4.4); ALPHA-1-GLOBULIN 0.3 g/dL (0.0-0.4); BETA GLOBULIN 0.9 g/dL (0.7-1.3); GAMMA GLOBULINS 0.6 g/dL (0.4-1.8); IMMUNOGLOBULIN A 232 mg/dL (87-352); IMMUNOGLOBULIN G 651 mg/dL (700-1600); IMMUNOGLOBULIN M 32 mg/dL (26-217); MONOCLONAL-SPIKE Not Observed g/dL (Not Observ); PROTEIN TOTAL SERUM 5.5 g/dL (6.0-8.5)
[2019-04-11] MEDS ORDERED: DRONABINOL 2.5 MG CAPSULE PO ONE (16:00)
[2019-04-11 22:48] LABS: ABSOLUTE EOSINOPHILS # (AUTO) 0.2 10^3/uL (0.0-0.6); ABSOLUTE LYMPHOCYTES (AUTO) 1.7 10^3/uL (0.5-4.7); ABSOLUTE MONOCYTES (AUTO) 1.3 10^3/uL (0.1-1.4); ABSOLUTE NEUT (AUTO) 6.3 10^3/uL (1.7-8.2); BASOPHILS % (AUTO) 0.5 % (0-2); EOSINOPHILS % (AUTO) 2.5 % (0-6); HEMATOCRIT 28.7 % (36.0-47.0); HEMOGLOBIN 9.8 g/dL (12.0-15.5); LYMPHOCYTES % (AUTO) 17.8 % (13-45); MEAN CORPUSCULAR HEMOGLOBIN 30.5 pg (27.0-33.4); MEAN CORPUSCULAR VOLUME 90 fl (80-97); MONOCYTES % (AUTO) 13.9 % (3-13); PLATELET COUNT 381 10^3/uL (150-450); SEGMENTED NEUTROPHILS % (AUTO) 65.3 % (42-78); TOTAL CELLS COUNTED % (AUTO) 100 %; WHITE BLOOD COUNT 9.6 10^3/uL (4.0-10.5)
[2019-04-12] MEDS: PANTOPRAZOLE SODIUM 40 MG TABLET.DR PO SCH ×2 (05:14→17:04)
[2019-04-12] MEDS: HEPARIN SOD (PORCINE) 5,000 UNIT/ML 1 ML VIAL SUBCUT SCH ×3 (05:14→21:52)
[2019-04-12 05:26] LABS: HEMATOCRIT 28.5 % (36.0-47.0); MEAN CORPUSCULAR HEMOGLOBIN 31.2 pg (27.0-33.4); MEAN CORPUSCULAR VOLUME 89 fl (80-97); PLATELET COUNT 424 10^3/uL (150-450); RED CELL DISTRIBUTION WIDTH 15.1 % (11.5-14.0); WHITE BLOOD COUNT 9.6 10^3/uL (4.0-10.5)
[2019-04-12 05:43] LABS: ALBUMIN 2.8 g/dL (3.5-5.0); ALKALINE PHOSPHATASE 256 U/L (38-126); ANION GAP 13 (5-19); ASPARTATE AMINO TRANSFERASE 113 U/L (14-36); BILIRUBIN,DIRECT 0.5 mg/dL (0.0-0.4); BILIRUBIN,TOTAL 0.7 mg/dL (0.2-1.3); BLOOD UREA NITROGEN 16 mg/dL (7-20); CALCIUM 8.1 mg/dL (8.4-10.2); CARBON DIOXIDE 15 mmol/L (22-30); CHLORIDE 113 mmol/L (98-107); GLUCOSE 84 mg/dL (75-110); POTASSIUM 4.6 mmol/L (3.6-5.0); TOTAL PROTEIN 5.9 g/dL (6.3-8.2)
--- NOTE | 2019-04-12 08:16 | PDOC PROGRESS REPORT ---
Subjective Progress Note for:: 04/12/19 Subjective:: Patient states that she has arranged to go home with "a friend" and that she is ready for discharge today. However, her LFTs are slowly climbing. Unclear reason. Patient states that she is now able to walk to bathroom. She did well with blood transfusion yesterday. No reactions. Reason For Visit: APRIL, HYPERCALCEMIA, METASTATIC DISEASE Physical Exam Vital Signs: Temp Pulse Resp BP Pulse Ox 98.4 F 74 16 130/64 H 95 04/11/19 23:21 04/11/19 23:21 04/11/19 23:21 04/11/19 23:21 04/11/19 23:21 Intake & Output 04/11/19 04/12/19 04/13/19 06:59 06:59 06:59 Intake Total 360 718 Output Total 350 Balance 10 718 Weight 70.7 kg 68.9 kg General appearance: PRESENT: no acute distress Head exam: PRESENT: normocephalic Mouth exam: PRESENT: tongue midline Respiratory exam: PRESENT: unlabored Neurological exam: PRESENT: alert, awake Psychiatric exam: PRESENT: appropriate affect Skin exam: PRESENT: normal color Results Laboratory Results: 04/12/19 04:19 04/12/19 04:19 04/11/19 04/11/19 04/11/19 09:48 09:48 22:38 WBC 9.6 RBC 3.20 L Hgb 9.8 L Hct 28.7 L MCV 90 MCH 30.5 MCHC 34.0 RDW 15.0 H Plt Count 381 Seg Neutrophils % 65.3 Sodium 139.0 Potassium 4.7 Chloride 113 H Carbon Dioxide 17 L Anion Gap 9 BUN 17 Creatinine 0.76 Est GFR ( Amer) > 60 Glucose 95 Calcium 8.2 L Magnesium Total Bilirubin 0.4 AST 120 H Alkaline Phosphatase 272 H Total Protein 5.6 L Albumin 2.8 L Blood Type AB POSITIVE Antibody Screen NEGATIVE 04/12/19 04/12/19 04:19 04:19 WBC 9.6 RBC 3.20 L Hgb 10.0 L Hct 28.5 L MCV 89 MCH 31.2 MCHC 35.0 RDW 15.1 H Plt Count 424 Seg Neutrophils % Sodium 141.1 Potassium 4.6 Chloride 113 H Carbon Dioxide 15 L Anion Gap 13 BUN 16 Creatinine 0.65 Est GFR ( Amer) > 60 Glucose 84 Calcium 8.1 L Magnesium 1.9 Total Bilirubin 0.7 AST 113 H Alkaline Phosphatase 256 H Total Protein 5.9 L Albumin 2.8 L Blood Type Antibody Screen 04/06/19 21:03 Blood Blood Culture - Final NO GROWTH IN 5 DAYS 04/06/19 20:22 Blood Blood Culture - Final NO GROWTH IN 5 DAYS Impressions: Renal Ultrasound 04/06/19 00:00 IMPRESSION: 1. No abnormality of the kidneys. 2. Wells catheter within the urinary bladder. 3. Cholelithiasis without other associated ancillary findings to indicate an acute cholecystitis. Lumbar Spine CT 04/06/19 13:16 IMPRESSION: Multiple lytic lesions throughout the lumbar spine with a large expansile lesion in the left L3 transverse process. Findings are most consistent with metastatic disease. Does the patient have a known primary? Femur X-Ray 04/06/19 13:17 IMPRESSION: Lytic lesion in the mid left femur suspicious for primary neoplasm or metastatic disease. Chest X-Ray 04/06/19 16:13 IMPRESSION: NO ACUTE RADIOGRAPHIC FINDING IN THE CHEST. Skeletal Survey 04/07/19 17:43 IMPRESSION: 1. Lytic lesions in the left humerus, lumbar spine and left femur. 2. Acute nondisplaced fracture of the right posterior-lateral 7th rib. Assessment & Plan - Diagnosis (1) Hypercalcemia Is this a current diagnosis for this admission?: Yes (2) Lytic bone lesion of femur Is this a current diagnosis for this admission?: Yes Plan: Everything appears to be multiple myeloma. Await confirmatory lab results. However, with rising LFTs, possibility of metastatic unknown primary still may need to be explored. I discussed CT C/A/P to search for primary cancer other than myeloma. This may help explain why her LFTs are increasing. (3) Low back pain Qualifiers: Chronicity: chronic Back pain laterality: midline Sciatica presence: without sciatica Qualified Code(s): M54.5 - Low back pain; G89.29 - Other chronic pain Is this a current diagnosis for this admission?: Yes Plan: Pain currently well controlled with Morphine long and short acting. Continue this. (4) Anemia Qualifiers: Other causes of anemia: chronic disease, neoplastic Is this a current diagnosis for this admission?: Yes Plan: Believed to be from myeloma. s/p 2 units pRBCs. Watch HGB - Time Time Spent with patient: 15-24 minutes
--- NOTE | 2019-04-12 09:21 | PDOC PROGRESS REPORT ---
Subjective Progress Note for:: 04/12/19 Subjective:: DANISH DOWLING is a 63 year old female with no significant past medical history presenting to ED complaining of progressively worsening bilateral hip and left lower extremity pain. Pain is described as constant, achy in nature, 10/10 on severity scale, worsened with any weightbearing or movement, relieved with ibuprofen. She is also c/o progressive weakness, fatigue, low appetite, weight loss of 30 pounds in the last 1 month, polydipsia and polyuria. This all started about 3 months ago with no apparent cause, denies any heavy lifting, trauma, chronic back pain, history of malignancy. She denies any headache, vision changes, numbness, tingling, focal neurological deficits, dysphagia, odynophagia, shortness of breath, chest pain, nausea, diarrhea, constipation or any urinary symptoms 04/07/2019. No acute events overnight. Patient reports improvement of back and lower extremity pain since being started on sustained-release morphine by oncology, denies any fever, chills, nausea, vomiting, diarrhea, constipation or any urinary symptoms. 04/08/2019. No acute events overnight. Patient complaining of generalized weakness and feeling anxious, denies any fever, chills, nausea, vomiting, diarrhea, constipation or any urinary symptoms. Could potentially be discharged home to follow-up with Dr. Bills as outpatient however patient's pressure is not optimized and her potassium is very low. Possible discharge home tomorrow. 04/09/2019. No acute events overnight. Patient is stating that she is feeling better than yesterday, still very weak and not able to ambulate much. She still endorsing very low appetite at stating that she would like to be transitioned to SNF as she does not have a place to go to and also she is not sure that she will be able to take care of her son on her own. Still complaining of bilateral hip and left lower extremity pain otherwise denies any fever, chills, nausea, vomiting, diarrhea, constipation or any urinary symptoms. 04/10/2019. No acute events overnight. Appetite improving. Still complaining of bilateral hip and left lower extremity pain, able to ambulate, p.o. tolerant having normal bowel movement. Patient currently does not have a place to go unfortunately not be transferred to rehab due to the financial reasons, patient's son who is living at [facility] will be taking her mother to live with him, possibly Thursday or Thursday. 04/11/2019. No acute events overnight. Appetite improving. Still complaining of bilateral hip and left lower extremity pain, improving compared to admission, denies any fever, chills, nausea, vomiting, diarrhea, constipation or any urinary symptoms. Patient does not have a place to go, has decided to move in with her son, waiting for her son to pick her up possibly today or tomorrow. 04/12/2019. No acute events overnight. Still endorsing low appetite, hip and lower extremity pain improving, denies any fever, chills, nausea, vomiting, diarrhea, constipation or any urinary symptoms. Reason For Visit: APRIL, HYPERCALCEMIA, METASTATIC DISEASE Physical Exam Vital Signs: Temp Pulse Resp BP Pulse Ox 98.9 F 81 16 153/75 H 98 04/12/19 08:24 04/12/19 08:24 04/12/19 08:24 04/12/19 08:24 04/12/19 08:24 Intake & Output 04/11/19 04/12/19 04/13/19 06:59 06:59 06:59 Intake Total 360 718 Output Total 350 Balance 10 718 Weight 70.7 kg 68.9 kg General appearance: PRESENT: no acute distress, well-developed, well-nourished Head exam: PRESENT: atraumatic, normocephalic Respiratory exam: PRESENT: clear to auscultation cinyd. ABSENT: rales, rhonchi, wheezes Cardiovascular exam: PRESENT: RRR. ABSENT: diastolic murmur, rubs, systolic murmur GI/Abdominal exam: PRESENT: normal bowel sounds, soft. ABSENT: distended, guarding, mass, organolmegaly, rebound, tenderness Neurological exam: PRESENT: alert, awake, oriented to person, oriented to place, oriented to time, oriented to situation, CN II-XII grossly intact. ABSENT: motor sensory deficit Results Laboratory Results: 04/12/19 04:19 04/12/19 04:19 04/06/19 04/11/19 04/11/19 20:22 09:48 09:48 WBC RBC Hgb Hct MCV MCH MCHC RDW Plt Count Seg Neutrophils % Sodium 139.0 Potassium 4.7 Chloride 113 H Carbon Dioxide 17 L Anion Gap 9 BUN 17 Creatinine 0.76 Est GFR ( Amer) > 60 Glucose 95 Calcium 8.2 L Magnesium Total Bilirubin 0.4 AST 120 H Alkaline Phosphatase 272 H Total Protein 5.5 L 5.6 L Albumin 2.8 L Blood Type AB POSITIVE Antibody Screen NEGATIVE 04/11/19 04/12/19 04/12/19 22:38 04:19 04:19 WBC 9.6 9.6 RBC 3.20 L 3.20 L Hgb 9.8 L 10.0 L Hct 28.7 L 28.5 L MCV 90 89 MCH 30.5 31.2 MCHC 34.0 35.0 RDW 15.0 H 15.1 H Plt Count 381 424 Seg Neutrophils % 65.3 Sodium 141.1 Potassium 4.6 Chloride 113 H Carbon Dioxide 15 L Anion Gap 13 BUN 16 Creatinine 0.65 Est GFR ( Amer) > 60 Glucose 84 Calcium 8.1 L Magnesium 1.9 Total Bilirubin 0.7 AST 113 H Alkaline Phosphatase 256 H Total Protein 5.9 L Albumin 2.8 L Blood Type Antibody Screen 04/06/19 21:03 Blood Blood Culture - Final NO GROWTH IN 5 DAYS 04/06/19 20:22 Blood Blood Culture - Final NO GROWTH IN 5 DAYS Impressions: Renal Ultrasound 04/06/19 00:00 IMPRESSION: 1. No abnormality of the kidneys. 2. Wells catheter within the urinary bladder. 3. Cholelithiasis without other associated ancillary findings to indicate an acute cholecystitis. Lumbar Spine CT 04/06/19 13:16 IMPRESSION: Multiple lytic lesions throughout the lumbar spine with a large expansile lesion in the left L3 transverse process. Findings are most consistent with metastatic disease. Does the patient have a known primary? Femur X-Ray 04/06/19 13:17 IMPRESSION: Lytic lesion in the mid left femur suspicious for primary neoplasm or metastatic disease. Chest X-Ray 04/06/19 16:13 IMPRESSION: NO ACUTE RADIOGRAPHIC FINDING IN THE CHEST. Skeletal Survey 04/07/19 17:43 IMPRESSION: 1. Lytic lesions in the left humerus, lumbar spine and left femur. 2. Acute nondisplaced fracture of the right posterior-lateral 7th rib. Assessment and Plan - Diagnosis (1) Anemia Qualifiers: Other causes of anemia: chronic disease, neoplastic Is this a current diagnosis for this admission?: Yes Plan: Denies any easy bruising, nosebleeds, hematemesis, hemoptysis, vaginal bleed, melena or hematochezia. H&H stable. Status post 2 PRBC transfusion 04/11/2019. Likely related to underlying malignancy. Monitor H&H. Supportive transfusions. (2) Hypercalcemia Is this a current diagnosis for this admission?: Yes Plan: Resolved. Most likely hypercalcemia of malignancy given lytic bone lesions, anemia and APRIL patient most likely has multiple myeloma. Received 1 dose of zoledronic acid. PTH WNL. DC IV fluids. Monitor volume status. Calcium level tomorrow. (3) Anorexia Is this a current diagnosis for this admission?: Yes Plan: Mild improvement. Likely due to underlying malignancy. Continue Megace. Consult dietitian. (4) Low back pain Qualifiers: Chronicity: chronic Back pain laterality: midline Sciatica presence: [facility] sciatica Qualified Code(s): M54.5 - Low back pain; G89.29 - Other c hronic pain Is this a current diagnosis for this admission?: Yes Plan: Improving since being started on sustained-release morphine. Likely due to underlying malignancy. Supportive measures. Denies any focal neurological deficits. Denies any saddle paresthesias. Denies any incontinence or urinary retention. (5) Lytic bone lesion of femur Is this a current diagnosis for this admission?: Yes Plan: Most likely underlying malignancy possibly multiple myeloma given anemia, APRIL, hypercalcemia. Skeletal survey positive for diffuse lytic lesions. Pending UPEP SPEP. Beta-2 microglobulin. As per oncology patient could be discharged home to follow-up with oncology as outpatient. (6) APRIL (acute kidney injury) Is this a current diagnosis for this admission?: Yes Plan: Resolved. Likely due to underlying malignancy, multiple myeloma. Renal ultrasound unremarkable. Daily BMP. Avoid nephrotoxic meds. (7) Malignancy Is this a current diagnosis for this admission?: Yes Plan: Most likely multiple myeloma. This based on presentation, labs and imaging. Pending SPEP UPEP. Oncology on board. Outpatient follow-up recommended. (8) Elevated LFTs Is this a current diagnosis for this admission?: Yes Plan: Patient has not received any hepatotoxic meds on this hospitalization. Not sure if this is due to underlying multiple myeloma or any occult malignancy other than multiple myeloma. We will do CT chest abdomen pelvis to rule out any occult malignancy other than MM.
[2019-04-12] MEDS: DOCUSATE SODIUM 100 MG CAPSULE PO SCH ×2 (09:46→17:04)
[2019-04-12] MEDS: CARVEDILOL 6.25 MG TABLET PO SCH ×2 (10:25→21:51)
[2019-04-12] MEDS: POTASSIUM CHLORIDE 10 MEQ TABLET.ER PO SCH (10:26)
[2019-04-12] MEDS: MEGESTROL ACETATE SUSP 400 MG/10 ML UDCUP PO SCH (10:26)
[2019-04-12] MEDS: MULTIVITAMINS W-IRON TABLET, CHEWABLE PO SCH (10:26)
[2019-04-12] MEDS: MORPHINE SULFATE SR 15 MG TABLET PO SCH ×2 (10:26→21:50)
--- NOTE | 2019-04-12 11:20 | RADIOLOGY REPORT (SQ) ---
EXAM DESCRIPTION: CT ABD/PELVIS WITH IV ONLY; CT CHEST WITH COMPLETED DATE/TIME: 04/12/2019 10:10 am REASON FOR STUDY: lytic lesions, r/o occult cancer other than MM COMPARISON: Bone survey from recently. CT lumbar spine from recently. CONTRAST TYPE AND DOSE: contrast/concentration: Isovue 350.00 mg/ml; Total Contrast Delivered: 78.0 ml; Total Saline Delivered: 67.0 ml RENAL FUNCTION: GFR > 60. TECHNIQUE: CT scan of the chest performed using helical scanning technique with dynamic intravenous contrast injection. Images reviewed with lung, soft tissue and bone windows. Reconstructed coronal a nd sagittal MPR images reviewed. All images stored on PACS. CT scan of the abdomen and pelvis performed with intravenous and with oral contrastusing helical scan bren technique with dynamic intravenous contrast injection. Images reviewed with lung, soft tissue a nd bone windows. Reconstructed coronal and sagittal MPR images reviewed. Delayed images for evaluat ion of the urinary system also acquired and evaluated. All images stored on PACS. All CT scanners at this facility use dose modulation, iterative reconstruction, and/or weight based d osing when appropriate to reduce radiation dose to as low as reasonably achievable (ALARA). [facility]: Dose Right [facility]: CareDose [facility]: Dose Right [facility]: Teradose 4D [facility]: [employer] RADIATION DOSE: CT Rad equipment meets quality standard of care and radiation dose reduction techniq ues were employed. CTDIvol: 5.5 - 5.6 mGy. DLP: 806 mGy-cm. . LIMITATIONS: Significant streak artifact from arm positioning on the delayed scans through the abdom en. FINDINGS: CHEST: LUNGS AND PLEURA: Masslike low-density airspace disease and the apex of the left lower lobe measures up to 4 cm and directly abuts the mediastinum and posterior aspect of the left hilum. Suspect nodule s measuring up to 9 mm in the left upper lobe. Please see image 30/118 and subsequent slices. Patch y additional left lower lobe infiltrate. Trace pleural fluid bilaterally. HILAR AND MEDIASTINAL STRUCTURES: Small mediastinal nodes. Largest measure up to 1.5 cm in short axi s but there may be confluent edwin tissue subcarinal tracking into the left hilum. HEART AND VASCULAR STRUCTURES: Cardiomegaly with mild pericardial effusion. Moderate Coronary calcif ication. No aortic aneurysm or dissection. No central pulmonary embolus. HARDWARE: None. THYROID AND OTHER SOFT TISSUES: Mild thyromegaly. No focal mass. No lower cervical or axillary joseph opathy or chest wall mass detected. BONES: Lytic vertebral lesions at T3 and L1. Mild L1-2 associated compression fracture. Suspect francisco e scattered right rib lesions as well. This includes the and 10th right lateral ribs. Left scapular lytic lesion also noted. OTHER: No other significant finding. ABDOMEN AND PELVIS: LIVER: Interior left lobe liver lesion measures 2.4 cm with slight bulge of the overlying liver capsu le. Indeterminate enhancement. Due to the limitations described above, incompletely characterized. This looks like a solitary lesion, however. SPLEEN: Normal size. No focal lesions. PANCREAS: No masses. No significant calcifications. No adjacent inflammation or peripancreatic fluid collections. Pancreatic duct not dilated. GALLBLADDER: Cholelithiasis. ADRENAL GLANDS: Indeterminate left adrenal mass measures up to 2.7 cm transverse dimension. RIGHT KIDNEY AND URETER: No obstruction. Suspect small cysts. LEFT KIDNEY AND URETER: No obstruction. Suspect small cysts. AORTA AND VESSELS: Heavily atherosclerotic. Mild infrarenal aortic aneurysm, up to 3 cm. Patent dalila or arterial branches. No gross venous clot. RETROPERITONEUM: No retroperitoneal adenopathy, hemorrhage or masses. BOWEL AND PERITONEAL CAVITY: No gross bowel obstruction. No suggestion of discrete mass allowing for moderate stool and dense debris in the cecum. APPENDIX: Not visualized. ABDOMINAL WALL: No masses. No hernias. PELVIS: No mass or free fluid. Normal bladder. BONES: Lytic lumbar spine lesions, previously described. OTHER: No other significant finding. IMPRESSION: 1. Known bone lesions. Suggestive of osseous metastases. Present diffusely. 2. Primary may be pulmonary, in the left lower lobe. There is low-density masslike abnormal opacity in the apex extending to abut the hilum with probable associated mediastinal and hilar adenopathy. 3. Indeterminate liver lesion. Indeterminate left adrenal mass. Findings are considered suspicious for metastasis, however. 4. Infrarenal abdominal aortic aneurysm. 5. Cholelithiasis. AAA Size: Follow-up Recommendation 3.0-3.4 cm Every 3 years *Based upon the Society for Vascular Surgery Guidelines: J Vasc Surg. 2009 Oct;50(4 Suppl):S2-49 *For aortas of maximum diameter of 2.6-2.9 cm meeting the criteria for AAA (?1.5 x proximal normal se gment) TECHNICAL DOCUMENTATION: JOB ID: [id number] Quality ID # [id number]: Final reports with documentation of one or more dose reduction techniques (e.g., Au tomated exposure control, adjustment of the mA and/or kV according to patient size, use of iterative reconstruction technique) 2010 [employer]- All Rights Reserved Reading location - IP/workstation name: [email or web address]
[2019-04-12 23:05] LABS: AMORPHOUS SEDIMENT,URINE TRACE /HPF; APPEARANCE,URINE CLOUDY; BILIRUBIN,URINE NEGATIVE (NEGATIVE); COLOR,URINE YELLOW; GLUCOSE, URINE NEGATIVE (NEGATIVE); KETONES,URINE TRACE mg/dL (NEGATIVE); PROTEIN,URINE 30 mg/dL (NEGATIVE); URINE SPECIFIC GRAVITY 1.032; UROBILINOGEN,URINE NEGATIVE mg/dL (<2.0)
[2019-04-13] MEDS: HEPARIN SOD (PORCINE) 5,000 UNIT/ML 1 ML VIAL SUBCUT SCH ×3 (05:05→21:11)
[2019-04-13] MEDS: PANTOPRAZOLE SODIUM 40 MG TABLET.DR PO SCH ×2 (05:05→17:27)
[2019-04-13] MEDS: MORPHINE SULFATE IR 15 MG TABLET PO PRN (05:05)
[2019-04-13 07:35] LABS: HEMATOCRIT 31.4 % (36.0-47.0); HEMOGLOBIN 10.7 g/dL (12.0-15.5); MEAN CORPUSCULAR HEMOGLOBIN 30.7 pg (27.0-33.4); MEAN CORPUSCULAR HGB CONC 34.2 g/dL (32.0-36.0); MEAN CORPUSCULAR VOLUME 90 fl (80-97); PLATELET COUNT 463 10^3/uL (150-450); RED BLOOD COUNT 3.49 10^6/uL (3.72-5.28); RED CELL DISTRIBUTION WIDTH 15.7 % (11.5-14.0); WHITE BLOOD COUNT 10.1 10^3/uL (4.0-10.5)
[2019-04-13 07:56] LABS: ALBUMIN 3.1 g/dL (3.5-5.0); ALKALINE PHOSPHATASE 273 U/L (38-126); ANION GAP 14 (5-19); ASPARTATE AMINO TRANSFERASE 118 U/L (14-36); BILIRUBIN,DIRECT 0.5 mg/dL (0.0-0.4); BILIRUBIN,TOTAL 0.6 mg/dL (0.2-1.3); BLOOD UREA NITROGEN 10 mg/dL (7-20); CALCIUM 8.8 mg/dL (8.4-10.2); CARBON DIOXIDE 17 mmol/L (22-30); CHLORIDE 110 mmol/L (98-107); GLUCOSE 89 mg/dL (75-110); POTASSIUM 4.9 mmol/L (3.6-5.0); TOTAL PROTEIN 6.3 g/dL (6.3-8.2)
[2019-04-13] MEDS ORDERED: HYDROMORPHONE HCL INJ/PF 2 MG/ML AMPULE IV PRN (09:02)
--- NOTE | 2019-04-13 09:02 | PDOC PROGRESS REPORT ---
Subjective Progress Note for:: 04/13/19 Subjective:: Had a long discussion with son who is at bedside. He unfortunate lives out of town. So patient truly lives at home alone. Patient is still confused, not able to get out of bed because of severe pain. We discussed changing her pain regimen. I also discussed the findings on CT, she does have a primary lung cancer most likely, with a lesion in the left lower lobe, liver lesion, adrenal lesion and bone lesions. Of note she has a 40 pack history of tobacco and quit about 5 years ago. Reason For Visit: APRIL, HYPERCALCEMIA, METASTATIC DISEASE Physical Exam Vital Signs: Temp Pulse Resp BP Pulse Ox 98.1 F 73 16 137/66 H 98 04/13/19 00:00 04/13/19 00:00 04/13/19 00:00 04/13/19 00:00 04/13/19 00:00 Intake & Output 04/12/19 04/13/19 04/14/19 06:59 06:59 06:59 Intake Total 718 100 Balance 718 100 Weight 68.9 kg 67.6 kg General appearance: PRESENT: no acute distress, well-developed, well-nourished Head exam: PRESENT: atraumatic, normocephalic Eye exam: PRESENT: conjunctiva pink, EOMI, PERRLA. ABSENT: scleral icterus Ear exam: PRESENT: normal external ear exam Mouth exam: PRESENT: moist, tongue midline Neck exam: ABSENT: carotid bruit, JVD, lymphadenopathy, thyromegaly Respiratory exam: PRESENT: clear to auscultation cindy. ABSENT: rales, rhonchi, wheezes Cardiovascular exam: PRESENT: RRR. ABSENT: diastolic murmur, rubs, systolic murmur Pulses: PRESENT: normal dorsalis pedis pul Vascular exam: PRESENT: normal capillary refill GI/Abdominal exam: PRESENT: normal bowel sounds, soft. ABSENT: distended, guarding, mass, organolmegaly, rebound, tenderness Rectal exam: PRESENT: deferred Extremities exam: PRESENT: full ROM. ABSENT: calf tenderness, clubbing, pedal edema Neurological exam: PRESENT: alert, awake, oriented to person, oriented to place, oriented to time, oriented to situation, CN II-XII grossly intact. ABSENT: motor sensory deficit Psychiatric exam: PRESENT: appropriate affect, normal mood. ABSENT: homicidal ideation, suicidal ideation Skin exam: PRESENT: dry, intact, warm. ABSENT: cyanosis, rash Results Laboratory Results: 04/13/19 07:14 04/13/19 07:14 04/12/19 04/13/19 04/13/19 22:30 07:14 07:14 WBC 10.1 RBC 3.49 L Hgb 10.7 L Hct 31.4 L MCV 90 MCH 30.7 MCHC 34.2 RDW 15.7 H Plt Count 463 H Sodium 140.8 Potassium 4.9 Chloride 110 H Carbon Dioxide 17 L Anion Gap 14 BUN 10 Creatinine 0.59 Est GFR ( Amer) > 60 Glucose 89 Calcium 8.8 Magnesium 1.8 Total Bilirubin 0.6 AST 118 H Alkaline Phosphatase 273 H Total Protein 6.3 Albumin 3.1 L Urine Color YELLOW Urine Appearance CLOUDY Urine pH 5.0 Ur Specific [place] 1.032 Urine Protein 30 H Urine Glucose (UA) NEGATIVE Urine Ketones TRACE H Urine Blood SMALL H Urine RBC (Auto) 27 Impressions: Renal Ultrasound 04/06/19 00:00 IMPRESSION: 1. No abnormality of the kidneys. 2. Wells catheter within the urinary bladder. 3. Cholelithiasis without other associated ancillary findings to indicate an acute cholecystitis. Lumbar Spine CT 04/06/19 13:16 IMPRESSION: Multiple lytic lesions throughout the lumbar spine with a large expansile lesion in the left L3 transverse process. Findings are most consistent with metastatic disease. Does the patient have a known primary? Femur X-Ray 04/06/19 13:17 IMPRESSION: Lytic lesion in the mid left femur suspicious for primary neoplasm or metastatic disease. Chest X-Ray 04/06/19 16:13 IMPRESSION: NO ACUTE RADIOGRAPHIC FINDING IN THE CHEST. Skeletal Survey 04/07/19 17:43 IMPRESSION: 1. Lytic lesions in the left humerus, lumbar spine and left femur. 2. Acute nondisplaced fracture of the right posterior-lateral 7th rib. Chest CT 04/12/19 00:00 IMPRESSION: 1. Known bone lesions. Suggestive of osseous metastases. Present diffusely. 2. Primary may be pulmonary, in the left lower lobe. There is low-density masslike abnormal opacity in the apex extending to abut the hilum with probable associated mediastinal and hilar adenopathy. 3. Indeterminate liver lesion. Indeterminate left adrenal mass. Findings are considered suspicious for metastasis, however. 4. Infrarenal abdominal aortic aneurysm. 5. Cholelithiasis. AAA Size: Follow-up Recommendation 3.0-3.4 cm Every 3 years *Based upon the Society for Vascular Surgery Guidelines: J Vasc Surg. 2009 Nov;50(4 Suppl):S2-49 *For aortas of maximum diameter of 2.6-2.9 cm meeting the criteria for AAA (?1.5 x proximal normal segment) Abdomen/Pelvis CT 04/12/19 09:17 IMPRESSION: 1. Known bone lesions. Suggestive of osseous metastases. Present diffusely. 2. Primary may be pulmonary, in the left lower lobe. There is low-density masslike abnormal opacity in the apex extending to abut the hilum with probable associated mediastinal and hilar adenopathy. 3. Indeterminate liver lesion. Indeterminate left adrenal mass. Findings are considered suspicious for metastasis, however. 4. Infrarenal abdominal aortic aneurysm. 5. Cholelithiasis. AAA Size: Follow-up Recommendation 3.0-3.4 cm Every 3 years *Based upon the Society for Vascular Surgery Guidelines: J Vasc Surg. 2009 Nov;50(4 Suppl):S2-49 *For aortas of maximum diameter of 2.6-2.9 cm meeting the criteria for AAA (?1.5 x proximal normal segment) Status: Image reviewed by me Assessment & Plan - Diagnosis (1) Cancer of lower lobe of lung Qualifiers: Laterality: left Qualified Code(s): C34.32 - Malignant neoplasm of lower lobe, left bronchus or lung Is this a current diagnosis for this admission?: Yes Plan: Most likely a left lower lobe lung cancer with metastatic spread. 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 Alternatively we could consider CT-guided biopsy. However I believe her pain is to be under better control before we could even consider that. (2) AMS (altered mental status) Qualifiers: Altered mental status type: delirium Qualified Code(s): R41.0 - Disorientation, unspecified Is this a current diagnosis for this admission?: Yes Plan: Altered mental status, initially would have been reasonable to have that seconda ry to the hypercalcemia but now that is corrected, unsure of why this is happening. I will get MRI of the brain. (3) Pain, neoplasm-related Is this a current diagnosis for this admission?: Yes Plan: Pain related to the bone metastasis, change morphine IR to oral Dilaudid along with IV Dilaudid for a higher pain scale. Hopefully this will help get her under control. - Time Time Spent with patient: 35 or more minutes
[2019-04-13] MEDS: POTASSIUM CHLORIDE 10 MEQ TABLET.ER PO SCH (10:15)
--- NOTE | 2019-04-13 11:11 | RADIOLOGY REPORT (SQ) ---
EXAM DESCRIPTION: MRI HEAD COMBO COMPLETED DATE/TIME: 04/13/2019 10:16 am REASON FOR STUDY: eval brain mets, lung cancer COMPARISON: None. TECHNIQUE: Multiplanar imaging includes noncontrasted T1, T2, FLAIR, diffusion with ADC map and post gadolinium contrast T1 sequences. Images stored on PACS. CONTRAST TYPE AND DOSE: 10 mL Dotarem. RENAL FUNCTION: Not indicated. ACR Type II contrast agent associated with few, if any, unconfounded cases of NSF LIMITATIONS: Studies limited by motion artifact on many of the sequences. This is up to mild -moder ate in some cases. FINDINGS: ANATOMY: No anomalies. Normal vascular flow voids. Pituitary fossa normal. CSF SPACES: Normal in size and contour. No hemorrhage. CEREBRUM: - Ring enhancing left temporal lobe lesion measures 8 mm. Series 10 post-contrast image 140/280; ser ies 1001 post-contrast image 35/49. - ring-enhancing right frontal subcortical lesion measuring 5 mm. Series 10, image 217/280. - no hemorrhage. No shift or hydrocephalus. Small vessel disease otherwise with spotty FLAIR hyperi ntensities largely in the deep white matter. POSTERIOR FOSSA: Ring enhancing right cerebellar lesion inferiorly. This measures 7 mm. Series 10, image 52/280. Small vessel changes in the rajesh, old lacunar infarcts. IAC's grossly normal. Mastoi d air cells are clear. DIFFUSION IMAGING: Negative for acute or subacute infarction. ORBITS: No masses. Globes normal. PARANASAL SINUSES: Near complete opacification with mucosal thickening left maxillary sinus. OTHER: No other significant finding. IMPRESSION: 1. Supratentorial ring-enhancing tiny metastatic lesions, left temporal and right frontal lobes. 2. Solitary right inferior cerebellar ring-enhancing metastatic lesion. EVIDENCE OF ACUTE STROKE: NO. TECHNICAL DOCUMENTATION: JOB ID: [id number] 2010 [employer]- All Rights Reserved Reading location - IP/workstation name: [email or web address]
[2019-04-13] MEDS: DOCUSATE SODIUM 100 MG CAPSULE PO SCH ×2 (11:25→17:27)
[2019-04-13] MEDS: HYDROMORPHONE HCL 2 MG TABLET PO PRN (11:25)
[2019-04-13] MEDS: MORPHINE SULFATE SR 15 MG TABLET PO SCH ×2 (11:26→21:11)
[2019-04-13] MEDS: CARVEDILOL 6.25 MG TABLET PO SCH ×2 (11:26→21:10)
[2019-04-13] MEDS: MULTIVITAMINS W-IRON TABLET, CHEWABLE PO SCH (11:26)
[2019-04-13] MEDS: DRONABINOL 2.5 MG CAPSULE PO SCH ×2 (14:21→21:10)
--- NOTE | 2019-04-13 15:17 | PDOC PROGRESS REPORT ---
Subjective Progress Note for:: 04/13/19 Subjective:: DANISH DOWLING is a 63 year old female with no significant past medical history presenting to ED complaining of progressively worsening bilateral hip and left lower extremity pain. Pain is described as constant, achy in nature, 10/10 on severity scale, worsened with any weightbearing or movement, relieved with ibuprofen. She is also c/o progressive weakness, fatigue, low appetite, weight loss of 30 pounds in the last 1 month, polydipsia and polyuria. This all started about 3 months ago with no apparent cause, denies any heavy lifting, trauma, chronic back pain, history of malignancy. She denies any headache, vision changes, numbness, tingling, focal neurological deficits, dysphagia, odynophagia, shortness of breath, chest pain, nausea, diarrhea, constipation or any urinary symptoms 04/07/2019. No acute events overnight. Patient reports improvement of back and lower extremity pain since being started on sustained-release morphine by oncology, denies any fever, chills, nausea, vomiting, diarrhea, constipation or any urinary symptoms. 04/08/2019. No acute events overnight. Patient complaining of generalized weakness and feeling anxious, denies any fever, chills, nausea, vomiting, diarrhea, constipation or any urinary symptoms. Could potentially be discharged home to follow-up with Dr. Bills as outpatient however patient's pressure is not optimized and her potassium is very low. Possible discharge home tomorrow. 04/09/2019. No acute events overnight. Patient is stating that she is feeling better than yesterday, still very weak and not able to ambulate much. She still endorsing very low appetite at stating that she would like to be transitioned to SNF as she does not have a place to go to and also she is not sure that she will be able to take care of her son on her own. Still complaining of bilateral hip and left lower extremity pain otherwise denies any fever, chills, nausea, vomiting, diarrhea, constipation or any urinary symptoms. 04/10/2019. No acute events overnight. Appetite improving. Still complaining of bilateral hip and left lower extremity pain, able to ambulate, p.o. tolerant having normal bowel movement. Patient currently does not have a place to go unfortunately not be transferred to rehab due to the financial reasons, patient's son who is living at [place] will be taking her mother to live with him, possibly Thursday or Thursday. 04/11/2019. No acute events overnight. Appetite improving. Still complaining of bilateral hip and left lower extremity pain, improving compared to admission, denies any fever, chills, nausea, vomiting, diarrhea, constipation or any urinary symptoms. Patient does not have a place to go, has decided to move in with her son, waiting for her son to pick her up possibly today or tomorrow. 04/12/2019. No acute events overnight. Still endorsing low appetite, hip and lower extremity pain improving, denies any fever, chills, nausea, vomiting, diarrhea, constipation or any urinary symptoms. 04/13/2019. No acute events overnight.Saw patient this morning right after patient and eldest son had a discussion with Dr. Ontiveros about newly found lung mass and possible metastatic disease. Patient is alert and awake and cooperative but unfortunately noted to be very confused, patient is alert to herself and does not know where she is or why she is in the hospital. Not sure if this confusion is due to pain medication or possibly due to brain metastasis. Reason For Visit: APRIL, HYPERCALCEMIA, METASTATIC DISEASE Physical Exam Vital Signs: Temp Pulse Resp BP Pulse Ox 97.8 F 78 12 146/73 H 97 04/13/19 12:55 04/13/19 12:55 04/13/19 12:55 04/13/19 12:55 04/13/19 12:55 Intake & Output 04/12/19 04/13/19 04/14/19 06:59 06:59 06:59 Intake Total 718 100 Balance 718 100 Weight 68.9 kg 67.6 kg Results Laboratory Results: 04/13/19 07:14 04/13/19 07:14 04/12/19 04/13/19 04/13/19 22:30 07:14 07:14 WBC 10.1 RBC 3.49 L Hgb 10.7 L Hct 31.4 L MCV 90 MCH 30.7 MCHC 34.2 RDW 15.7 H Plt Count 463 H Sodium 140.8 Potassium 4.9 Chloride 110 H Carbon Dioxide 17 L Anion Gap 14 BUN 10 Creatinine 0.59 Est GFR ( Amer) > 60 Glucose 89 Calcium 8.8 Magnesium 1.8 Total Bilirubin 0.6 AST 118 H Alkaline Phosphatase 273 H Total Protein 6.3 Albumin 3.1 L Urine Color YELLOW Urine Appearance CLOUDY Urine pH 5.0 Ur Specific [place] 1.032 Urine Protein 30 H Urine Glucose (UA) NEGATIVE Urine Ketones TRACE H Urine Blood SMALL H Urine RBC (Auto) 27 Impressions: Renal Ultrasound 04/06/19 00:00 IMPRESSION: 1. No abnormality of the kidneys. 2. Wells catheter within the urinary bladder. 3. Cholelithiasis without other associated ancillary findings to indicate an acute cholecystitis. Lumbar Spine CT 04/06/19 13:16 IMPRESSION: Multiple lytic lesions throughout the lumbar spine with a large expansile lesion in the left L3 transverse process. Findings are most consistent with metastatic disease. Does the patient have a known primary? Femur X-Ray 04/06/19 13:17 IMPRESSION: Lytic lesion in the mid left femur suspicious for primary neoplasm or metastatic disease. Chest X-Ray 04/06/19 16:13 IMPRESSION: NO ACUTE RADIOGRAPHIC FINDING IN THE CHEST. Skeletal Survey 04/07/19 17:43 IMPRESSION: 1. Lytic lesions in the left humerus, lumbar spine and left femur. 2. Acute nondisplaced fracture of the right posterior-lateral 7th rib. Chest CT 04/12/19 00:00 IMPRESSION: 1. Known bone lesions. Suggestive of osseous metastases. Present diffusely. 2. Primary may be pulmonary, in the left lower lobe. There is low-density m asslike abnormal opacity in the apex extending to abut the hilum with probable associated mediastinal and hilar adenopathy. 3. Indeterminate liver lesion. Indeterminate left adrenal mass. Findings are considered suspicious for metastasis, however. 4. Infrarenal abdominal aortic aneurysm. 5. Cholelithiasis. AAA Size: Follow-up Recommendation 3.0-3.4 cm Every 3 years *Based upon the Society for Vascular Surgery Guidelines: J Vasc Surg. 2009 Nov;50(4 Suppl):S2-49 *For aortas of maximum diameter of 2.6-2.9 cm meeting the criteria for AAA (?1.5 x proximal normal segment) Abdomen/Pelvis CT 04/12/19 09:17 IMPRESSION: 1. Known bone lesions. Suggestive of osseous metastases. Present diffusely. 2. Primary may be pulmonary, in the left lower lobe. There is low-density masslike abnormal opacity in the apex extending to abut the hilum with probable associated mediastinal and hilar adenopathy. 3. Indeterminate liver lesion. Indeterminate left adrenal mass. Findings are considered suspicious for metastasis, however. 4. Infrarenal abdominal aortic aneurysm. 5. Cholelithiasis. AAA Size: Follow-up Recommendation 3.0-3.4 cm Every 3 years *Based upon the Society for Vascular Surgery Guidelines: J Vasc Surg. 2009 Nov;50(4 Suppl):S2-49 *For aortas of maximum diameter of 2.6-2.9 cm meeting the criteria for AAA (?1.5 x proximal normal segment) Head MRI 04/13/19 00:00 IMPRESSION: 1. Supratentorial ring-enhancing tiny metastatic lesions, left temporal and right frontal lobes. 2. Solitary right inferior cerebellar ring-enhancing metastatic lesion. EVIDENCE OF ACUTE STROKE: NO. Assessment and Plan - Diagnosis (1) AMS (altered mental status) Qualifiers: Altered mental status type: delirium Qualified Code(s): R41.0 - Disorie ntation, unspecified Is this a current diagnosis for this admission?: Yes Plan: Acute metabolic encephalopathy likely due to brain metastasis or opioid related. Patient is not hypoxic, no sign of acute infection, hypoglycemia resolved and there is no electrolyte derangement. MRI brain positive for solitary ring-enhancing lesion. Implement fall, seizure and aspiration precautions. Monitor electrolytes and replace as needed. Taper opioids once pain is controlled. (2) Cancer of lower lobe of lung Qualifiers: Laterality: left Qualified Code(s): C34.32 - Malignant neoplasm of lower lobe, left bronchus or lung Is this a current diagnosis for this admission?: Yes Plan: Possibly metastatic. Noted to have lesion and the lung, brain, bones and adrenal gland. Patient has history of 40 pack smoking and quit 5 years ago. Oncology on board. Recommendations noted. (3) Anemia Qualifiers: Other causes of anemia: chronic disease, neoplastic Is this a current diagnosis for this admission?: Yes Plan: Denies any easy bruising, nosebleeds, hematemesis, hemoptysis, vaginal bleed, melena or hematochezia. H&H stable. Status post 2 PRBC transfusion 04/11/2019. Likely related to underlying malignancy. Monitor H&H. Supportive transfusions. (4) Hypercalcemia Is this a current diagnosis for this admission?: Yes Plan: Resolved. Most likely hypercalcemia of malignancy most likely lung malignancy. Initially thought to be due to multiple myeloma which has been ruled out. Presented with lytic bone lesions, anemia and APRIL Received 1 dose of zoledronic acid. PTH WNL. Monitor volume status. Calcium level tomorrow. (5) Anorexia Is this a current diagnosis for this admission?: Yes Plan: No significant improvement. Likely due to underlying malignancy. Neck is not affected. DC Megace. We will start on Marinol p.o. twice daily. (6) Low back pain Qualifiers: Chronicity: chronic Back pain laterality: midline Sciatica presence: without sciatica Qualified Code(s): M54.5 - Low back pain; G89.29 - Other chronic pain Is this a current diagnosis for this admission?: Yes Plan: Improving since being started on sustained-release morphine. Likely due to underlying malignancy. Supportive measures. Denies any focal neurological deficits. Denies any saddle paresthesias. Denies any incontinence or urinary retention. (7) Lytic bone lesion of femur Is this a current diagnosis for this admission?: Yes Plan: Most likely underlying malignancy possibly lung cancer. Initially thought to be due to multiple myeloma given anemia, APRIL, hypercalcemia. Skeletal survey positive for diffuse lytic lesions. UPEP/SPEP negative for multiple myeloma. (8) APRIL (acute kidney injury) Is this a current diagnosis for this admission?: Yes Plan: Resolved. Likely due to underlying malignancy, multiple myeloma. Renal ultrasound unremarkable. Daily BMP. Avoid nephrotoxic meds. (9) Malignancy Is this a current diagnosis for this admission?: Yes Plan: Possibly metastatic lung cancer. Initially thought to be multiple myeloma given the presentation. CT abdomen pelvis positive for multiple metastatic lesions to liver, bones and adrenal gland. Brain MRI positive for solitary ring-enhancing lesion possibly metastatic. Multiple myeloma ruled out based on negative SPEP/UPEP and finding of occult malignancy. Oncology on board. Recommendations noted. (10) Elevated LFTs Is this a current diagnosis for this admission?: Yes Plan: Unfortunately ending up. Possibly due to metastatic lung disease. CT abdomen positive for liver lesions. Patient has not received any hepatotoxic meds on this hospitalization.
[2019-04-14] MEDS: DRONABINOL 2.5 MG CAPSULE PO SCH (05:38)
[2019-04-14] MEDS: PANTOPRAZOLE SODIUM 40 MG TABLET.DR PO SCH ×2 (05:38→17:13)
[2019-04-14] MEDS: HEPARIN SOD (PORCINE) 5,000 UNIT/ML 1 ML VIAL SUBCUT SCH ×3 (05:38→21:48)
[2019-04-14] MEDS: HYDROMORPHONE HCL 2 MG TABLET PO PRN (05:38)
[2019-04-14] MEDS: POTASSIUM CHLORIDE 10 MEQ TABLET.ER PO SCH (09:56)
[2019-04-14] MEDS: MORPHINE SULFATE SR 15 MG TABLET PO SCH ×2 (09:56→21:48)
[2019-04-14] MEDS: CARVEDILOL 6.25 MG TABLET PO SCH ×2 (10:03→21:47)
[2019-04-14] MEDS: DEXAMETHASONE 4 MG TABLET PO SCH ×2 (10:03→21:47)
[2019-04-14] MEDS: MULTIVITAMINS W-IRON TABLET, CHEWABLE PO SCH (10:03)
[2019-04-14] MEDS: DOCUSATE SODIUM 100 MG CAPSULE PO SCH ×2 (10:03→17:13)
[2019-04-14] MEDS ORDERED: MEGESTROL ACETATE SUSP 400 MG/10 ML UDCUP PO SCH (11:00)
--- NOTE | 2019-04-14 11:20 | PDOC PROGRESS REPORT ---
Subjective Progress Note for:: 04/14/19 Subjective:: DANISH DOWLING is a 63 year old female with no significant past medical history presenting to ED complaining of progressively worsening bilateral hip and left lower extremity pain. Pain is described as constant, achy in nature, 10/10 on severity scale, worsened with any weightbearing or movement, relieved with ibuprofen. She is also c/o progressive weakness, fatigue, low appetite, weight loss of 30 pounds in the last 1 month, polydipsia and polyuria. This all started about 3 months ago with no apparent cause, denies any heavy lifting, trauma, chronic back pain, history of malignancy. She denies any headache, vision changes, numbness, tingling, focal neurological deficits, dysphagia, odynophagia, shortness of breath, chest pain, nausea, diarrhea, constipation or any urinary symptoms 04/07/2019. No acute events overnight. Patient reports improvement of back and lower extremity pain since being started on sustained-release morphine by oncology, denies any fever, chills, nausea, vomiting, diarrhea, constipation or any urinary symptoms. 04/08/2019. No acute events overnight. Patient complaining of generalized weakness and feeling anxious, denies any fever, chills, nausea, vomiting, diarrhea, constipation or any urinary symptoms. Could potentially be discharged home to follow-up with Dr. Bills as outpatient however patient's pressure is not optimized and her potassium is very low. Possible discharge home tomorrow. 04/09/2019. No acute events overnight. Patient is stating that she is feeling better than yesterday, still very weak and not able to ambulate much. She still endorsing very low appetite at stating that she would like to be transitioned to SNF as she does not have a place to go to and also she is not sure that she will be able to take care of her son on her own. Still complaining of bilateral hip and left lower extremity pain otherwise denies any fever, chills, nausea, vomiting, diarrhea, constipation or any urinary symptoms. 04/10/2019. No acute events overnight. Appetite improving. Still complaining of bilateral hip and left lower extremity pain, able to ambulate, p.o. tolerant having normal bowel movement. Patient currently does not have a place to go unfortunately not be transferred to rehab due to the financial reasons, patient's son who is living at [place] will be taking her mother to live with him, possibly Thursday or Thursday. 04/11/2019. No acute events overnight. Appetite improving. Still complaining of bilateral hip and left lower extremity pain, improving compared to admission, denies any fever, chills, nausea, vomiting, diarrhea, constipation or any urinary symptoms. Patient does not have a place to go, has decided to move in with her son, waiting for her son to pick her up possibly today or tomorrow. 04/12/2019. No acute events overnight. Still endorsing low appetite, hip and lower extremity pain improving, denies any fever, chills, nausea, vomiting, diarrhea, constipation or any urinary symptoms. 04/13/2019. No acute events overnight.Saw patient this morning right after patient and eldest son had a discussion with Dr. Ontiveros about newly found lung mass and possible metastatic disease. Patient is alert and awake and cooperative but unfortunately noted to be very confused, patient is alert to herself and does not know where she is or why she is in the hospital. Not sure if this confusion is due to pain medication or possibly due to brain metastasis. 04/14/2019. Patient is awake and alert however still only oriented to self, patient's 2 sons are at bedside, had an extensive discussion with oncology and they have decided to go ahead with inpatient hospice transition of care. Patient noted to be confused compared to admission, not sure if this is due to brain metastasis or drug-induced. Reason For Visit: APRIL, HYPERCALCEMIA, METASTATIC DISEASE Physical Exam Vital Signs: Temp Pulse Resp BP Pulse Ox 97.4 F 86 19 150/84 H 95 04/14/19 08:00 04/14/19 08:00 04/14/19 08:00 04/14/19 08:00 04/14/19 08:00 Intake & Output 04/13/19 04/14/19 04/15/19 06:59 06:59 06:59 Intake Total 100 Balance 100 Weight 67.6 kg 70.9 kg General appearance: PRESENT: no acute distress, well-developed, well-nourished Head exam: PRESENT: atraumatic, normocephalic Respiratory exam: PRESENT: clear to auscultation cindy. ABSENT: rales, rhonchi, wheezes Cardiovascular exam: PRESENT: RRR. ABSENT: diastolic murmur, rubs, systolic murmur GI/Abdominal exam: PRESENT: normal bowel sounds, soft. ABSENT: distended, guarding, mass, organolmegaly, rebound, tenderness Extremities exam: PRESENT: full ROM, tenderness. ABSENT: calf tenderness, clubbing, pedal edema Musculoskeletal exam: PRESENT: tenderness Neurological exam: PRESENT: alert, awake, oriented to person, CN II-XII grossly intact. ABSENT: motor sensory deficit Results Laboratory Results: 04/13/19 07:14 04/13/19 07:14 Impressions: Renal Ultrasound 04/06/19 00:00 IMPRESSION: 1. No abnormality of the kidneys. 2. Wells catheter within the urinary bladder. 3. Cholelithiasis without other associated ancillary findings to indicate an acute cholecystitis. Lumbar Spine CT 04/06/19 13:16 IMPRESSION: Multiple lytic lesions throughout the lumbar spine with a large expansile lesion in the left L3 transverse process. Findings are most consistent with metastatic disease. Does the patient have a known primary? Femur X-Ray 04/06/19 13:17 IMPRESSION: Lytic lesion in the mid left femur suspicious for primary neoplasm or metastatic disease. Chest X-Ray 04/06/19 16:13 IMPRESSION: NO ACUTE RADIOGRAPHIC FINDING IN THE CHEST. Skeletal Survey 04/07/19 17:43 IMPRESSION: 1. Lytic lesions in the left humerus, lumbar spine and left femur. 2. Acute nondisplaced fracture of the right posterior-lateral 7th rib. Chest CT 04/12/19 00:00 IMPRESSION: 1. Known bone lesions. Suggestive of osseous metastases. Present diffusely. 2. Primary may be pulmonary, in the left lower lobe. There is low-density masslike abnormal opacity in the apex extending to abut the hilum with probable associated mediastinal and hilar adenopathy. 3. Indeterminate liver lesion. Indeterminate left adrenal mass. Findings are considered suspicious for metastasis, however. 4. Infrarenal abdominal aortic aneurysm. 5. Cholelithiasis. AAA Size: Follow-up Recommendation 3.0-3.4 cm Every 3 years *Based upon the Society for Vascular Surgery Guidelines: J Vasc Surg. 2008;50(4 Suppl):S2-49 *For aortas of maximum diameter of 2.6-2.9 cm meeting the criteria for AAA (?1.5 x proximal normal segment) Abdomen/Pelvis CT 04/12/19 09:17 IMPRESSION: 1. Known bone lesions. Suggestive of osseous metastases. Present diffusely. 2. Primary may be pulmonary, in the left lower lobe. There is low-density masslike abnormal opacity in the apex extending to abut the hilum with probable associated mediastinal and hilar adenopathy. 3. Indeterminate liver lesion. Indeterminate left adrenal mass. Findings are considered suspicious for metastasis, however. 4. Infrarenal abdominal aortic aneurysm. 5. Cholelithiasis. AAA Size: Follow-up Recommendation 3.0-3.4 cm Every 3 years *Based upon the Society for Vascular Surgery Guidelines: J Vasc Surg. 2009 Nov;50(4 Suppl):S2-49 *For aortas of maximum diameter of 2.6-2.9 cm meeting the criteria for AAA (?1.5 x proximal normal segment) Head MRI 04/13/19 00:00 IMPRESSION: 1. Supratentorial ring-enhancing tiny metastatic lesions, left temporal and right frontal lobes. 2. Solitary right inferior cerebellar ring-enhancing metastatic lesion. EVIDENCE OF ACUTE STROKE: NO. Assessment and Plan - Diagnosis (1) AMS (altered mental status) Qualifiers: Altered mental status type: delirium Qualified Code(s): R41.0 - Disorientation, unspecified Is this a current diagnosis for this admission?: Yes Plan: Acute metabolic encephalopathy likely due to brain metastasis or opioid related. Not sure if this is due to Dilaudid which was a started a started yesterday or this is due to brain metastasis. Of note patient was also started on Marinol for appetite stimulation. Patient was noted to be confused on my evaluation yesterday morning before being started on Marinol. Patient is not hypoxic, no sign of acute infection, hypoglycemia resolved and there is no electrolyte derangement. MRI brain positive for solitary ring-enhancing lesion. Implement fall, seizure and aspiration precautions. Marinol has been DC'd by oncology. We will also DC Dilaudid and switch to fentanyl patch. We will continue MS Contin p.o. (2) Cancer of lower lobe of lung Qualifiers: Laterality: left Qualified Code(s): C34.32 - Malignant neoplasm of lower lobe, left bronchus or lung Is this a current diagnosis for this admission?: Yes Plan: Metastatic. Noted to have lesion and the lung, brain, bones and adrenal gland. Brain MRI positive for solitary enhancing lesion. Patient has history of 40 pack smoking and quit 5 years ago. Oncology on board. Recommendations noted. (3) Anemia Qualifiers: Other causes of anemia: chronic disease, neoplastic Is this a current diagnosis for this admission?: Yes Plan: Denies any easy bruising, nosebleeds, hematemesis, hemoptysis, vaginal bleed, melena or hematochezia. H&H stable. Status post 2 PRBC transfusion 04/11/2019. Likely related to underlying malignancy. Monitor H&H. Supportive transfusions. (4) Hypercalcemia Is this a current diagnosis for this admission?: Yes Plan: Resolved. Most likely hypercalcemia of malignancy most likely lung malignancy. Initially thought to be due to multiple myeloma which has been ruled out. Presented with lytic bone lesions, anemia and APRIL Received 1 dose of zoledronic acid. PTH WNL. Monitor volume status. Calcium level tomorrow. (5) Anorexia Is this a current diagnosis for this admission?: Yes Plan: No significant improvement. Likely due to underlying malignancy. Neck is not affected. DC Marinol due to altered mental status. Continue Megace and PO steroids. (6) Low back pain Qualifiers: Chronicity: chronic Back pain laterality: midline Sciatica presence: without sciatica Qualified Code(s): M54.5 - Low back pain; G89.29 - Other chronic pain Is this a current diagnosis for this admission?: Yes Plan: Improving since being started on sustained-release morphine. Likely due to underlying malignancy. Supportive measures. Denies any focal neurological deficits. Denies any saddle paresthesias. Denies any incontinence or urinary retention. (7) Lytic bone lesion of femur Is this a current diagnosis for this admission?: Yes Plan: Most likely underlying malignancy possibly lung cancer. Initially thought to be due to multiple myeloma given anemia, APRIL, hypercalcemia. Skeletal survey positive for diffuse lytic lesions. UPEP/SPEP negative for multiple myeloma. (8) APRIL (acute kidney injury) Is this a current diagnosis for this admission?: Yes Plan: Resolved. Likely due to underlying malignancy, multiple myeloma. Renal ultrasound unremarkable. Daily BMP. Avoid nephrotoxic meds. (9) Malignancy Is this a current diagnosis for this admission?: Yes Plan: Family has decided for inpatient hospice transition of care after discussion with oncologist. Possibly metastatic lung cancer. Initially thought to be multiple myeloma given the presentation. CT abdomen pelvis positive for multiple metastatic lesions to liver, bones and adrenal gland. Brain MRI positive for solitary ring-enhancing lesion possibly metastatic. Multiple myeloma ruled out based on negative SPEP/UPEP and finding of occult malignancy. Oncology on board. Recommendations noted. (10) Elevated LFTs Is this a current diagnosis for this admission?: Yes Plan: Unfortunately ending up. Possibly due to metastatic lung disease. CT abdomen positive for liver lesions. Patient has not received any hepatotoxic meds on this hospitalization.
[2019-04-14] MEDS: FENTANYL 75 MCG/HR PATCH.TD72 TD SCH (11:29)
[2019-04-14] MEDS: MEGESTROL ACETATE SUSP 400 MG/10 ML UDCUP PO SCH (13:08)
--- NOTE | 2019-04-14 13:40 | PDOC PROGRESS REPORT ---
Subjective Progress Note for:: 04/14/19 Subjective:: Patient is much more confused that when I last saw her. Both sons at bedside. We discussed entire situation at length. Sadly, this is NOT Multiple Myeloma, as initially thought. This appears to be metastatic cancer, most likely lung primary with bone, liver, and brain mets. Her confusion has progressed over the last 24 hours. She is still having pain as well, especially with any movement. Reason For Visit: APRIL, HYPERCALCEMIA, METASTATIC DISEASE Physical Exam Vital Signs: Temp Pulse Resp BP Pulse Ox 97.4 F 79 19 113/64 99 04/14/19 08:00 04/14/19 11:30 04/14/19 08:00 04/14/19 11:30 04/14/19 11:30 Intake & Output 04/13/19 04/14/19 04/15/19 06:59 06:59 06:59 Intake Total 100 1100 Balance 100 1100 Weight 67.6 kg 70.9 kg General appearance: PRESENT: no acute distress, other - upset and crying. Eye exam: PRESENT: EOMI Respiratory exam: PRESENT: tachypnea Neurological exam: PRESENT: alert, awake, other - confused Psychiatric exam: PRESENT: depressed Skin exam: PRESENT: normal color Results Laboratory Results: 04/13/19 07:14 04/13/19 07:14 Impressions: Renal Ultrasound 04/06/19 00:00 IMPRESSION: 1. No abnormality of the kidneys. 2. Wells catheter within the urinary bladder. 3. Cholelithiasis without other associated ancillary findings to indicate an acute cholecystitis. Lumbar Spine CT 04/06/19 13:16 IMPRESSION: Multiple lytic lesions throughout the lumbar spine with a large expansile lesion in the left L3 transverse process. Findings are most consistent with metastatic disease. Does the patient have a known primary? Femur X-Ray 04/06/19 13:17 IMPRESSION: Lytic lesion in the mid left femur suspicious for primary neoplasm or metastatic disease. Chest X-Ray 04/06/19 16:13 IMPRESSION: NO ACUTE RADIOGRAPHIC FINDING IN THE CHEST. Skeletal Survey 04/07/19 17:43 IMPRESSION: 1. Lytic lesions in the left humerus, lumbar spine and left femur. 2. Acute nondisplaced fracture of the right posterior-lateral 7th rib. Chest CT 04/12/19 00:00 IMPRESSION: 1. Known bone lesions. Suggestive of osseous metastases. Present diffusely. 2. Primary may be pulmonary, in the left lower lobe. There is low-density masslike abnormal opacity in the apex extending to abut the hilum with probable associated mediastinal and hilar adenopathy. 3. Indeterminate liver lesion. Indeterminate left adrenal mass. Findings are considered suspicious for metastasis, however. 4. Infrarenal abdominal aortic aneurysm. 5. Cholelithiasis. AAA Size: Follow-up Recommendation 3.0-3.4 cm Every 3 years *Based upon the Society for Vascular Surgery Guidelines: J Vasc Surg. 2009 Oct;50(4 Suppl):S2-49 *For aortas of maximum diameter of 2.6-2.9 cm meeting the criteria for AAA (?1.5 x proximal normal segment) Abdomen/Pelvis CT 04/12/19 09:17 IMPRESSION: 1. Known bone lesions. Suggestive of osseous metastases. Present diffusely. 2. Primary may be pulmonary, in the left lower lobe. There is low-density masslike abnormal opacity in the apex extending to abut the hilum with probable associated mediastinal and hilar adenopathy. 3. Indeterminate liver lesion. Indeterminate left adrenal mass. Findings are considered suspicious for metastasis, however. 4. Infrarenal abdominal aortic aneurysm. 5. Cholelithiasis. AAA Size: Follow-up Recommendation 3.0-3.4 cm Every 3 years *Based upon the Society for Vascular Surgery Guidelines: J Vasc Surg. 2009 Nov;50(4 Suppl):S2-49 *For aortas of maximum diameter of 2.6-2.9 cm meeting the criteria for AAA (?1.5 x proximal normal segment) Head MRI 04/13/19 00:00 IMPRESSION: 1. Supratentorial ring-enhancing tiny metastatic lesions, left temporal and right frontal lobes. 2. Solitary right inferior cerebellar ring-enhancing metastatic lesion. EVIDENCE OF ACUTE STROKE: NO. Assessment & Plan - Diagnosis (1) Hypercalcemia Is this a current diagnosis for this admission?: Yes Plan: She already received Zometa x 1 dose during this admission. Currently, Ca levels are low. (2) Lytic bone lesion of femur Is this a current diagnosis for this admission?: Yes Plan: Now thought to be metastatic lung cancer. Continue pain meds, but will make adjustments due to mental status. (3) Low back pain Qualifiers: Chronicity: chronic Back pain laterality: midline Sciatica presence: without sciatica Qualified Code(s): M54.5 - Low back pain; G89.29 - Other chronic pain Is this a current diagnosis for this admission?: Yes (4) Anemia Qualifiers: Other causes of anemia: chronic disease, neoplastic Is this a current diagnosis for this admission?: Yes - Time Time Spent with patient: 25-34 minutes - Plan Summary Plan Summary: I discussed with sons at length. I will stop Marinol and megace and add Dexamethasone 4 mg BID to see if this helps her confusion. Due to her rising LFTs, I will decrease her MSContin to 15 mg BID. She was doing well with MS Contin and MSIR PO previously. We also discussed possible aggressive treatment vs. Hospice. Family now requests Hospice services as close to her family as possible. They are in [facility]. I will try to see if there is an inpatient Hospice unit that may take her.
[2019-04-14] MEDS ORDERED: ZOLEDRONIC ACID 4 MG/100 ML RTU IV SCH (13:45)
[2019-04-15] MEDS: PANTOPRAZOLE SODIUM 40 MG TABLET.DR PO SCH ×2 (05:49→17:04)
--- NOTE | 2019-04-15 08:24 | PDOC PROGRESS REPORT ---
Subjective Progress Note for:: 04/15/19 Subjective:: Patient is much more alert and talkative today. She is confused, and does not make much sense, but she is eating her breakfast. Her son is at bedside. She states that her pain is controlled. Reason For Visit: APRIL, HYPERCALCEMIA, METASTATIC DISEASE Physical Exam Vital Signs: Temp Pulse Resp BP Pulse Ox 98.5 F 84 16 160/93 H 94 04/14/19 23:21 04/14/19 23:21 04/14/19 23:21 04/15/19 02:00 04/14/19 23:21 Intake & Output 04/14/19 04/15/19 04/16/19 06:59 06:59 06:59 Intake Total 1245 Balance 1245 Weight 70.9 kg 70.4 kg General appearance: PRESENT: no acute distress Head exam: PRESENT: normocephalic Respiratory exam: PRESENT: unlabored Extremities exam: ABSENT: pedal edema Musculoskeletal exam: PRESENT: normal inspection Neurological exam: PRESENT: alert, awake Skin exam: PRESENT: normal color Results Laboratory Results: 04/13/19 07:14 04/13/19 07:14 Impressions: Renal Ultrasound 04/06/19 00:00 IMPRESSION: 1. No abnormality of the kidneys. 2. Wells catheter within the urinary bladder. 3. Cholelithiasis without other associated ancillary findings to indicate an acute cholecystitis. Lumbar Spine CT 04/06/19 13:16 IMPRESSION: Multiple lytic lesions throughout the lumbar spine with a large expansile lesion in the left L3 transverse process. Findings are most consistent with metastatic disease. Does the patient have a known primary? Femur X-Ray 04/06/19 13:17 IMPRESSION: Lytic lesion in the mid left femur suspicious for primary neoplasm or metastatic disease. Chest X-Ray 04/06/19 16:13 IMPRESSION: NO ACUTE RADIOGRAPHIC FINDING IN THE CHEST. Skeletal Survey 04/07/19 17:43 IMPRESSION: 1. Lytic lesions in the left humerus, lumbar spine and left femur. 2. Acute nondisplaced fracture of the right posterior-lateral 7th rib. Chest CT 04/12/19 00:00 IMPRESSION: 1. Known bone lesions. Suggestive of osseous metastases. Present diffusely. 2. Primary may be pulmonary, in the left lower lobe. There is low-density m asslike abnormal opacity in the apex extending to abut the hilum with probable associated mediastinal and hilar adenopathy. 3. Indeterminate liver lesion. Indeterminate left adrenal mass. Findings are considered suspicious for metastasis, however. 4. Infrarenal abdominal aortic aneurysm. 5. Cholelithiasis. AAA Size: Follow-up Recommendation 3.0-3.4 cm Every 3 years *Based upon the Society for Vascular Surgery Guidelines: J Vasc Surg. 2009 Nov;50(4 Suppl):S2-49 *For aortas of maximum diameter of 2.6-2.9 cm meeting the criteria for AAA (?1.5 x proximal normal segment) Abdomen/Pelvis CT 04/12/19 09:17 IMPRESSION: 1. Known bone lesions. Suggestive of osseous metastases. Present diffusely. 2. Primary may be pulmonary, in the left lower lobe. There is low-density masslike abnormal opacity in the apex extending to abut the hilum with probable associated mediastinal and hilar adenopathy. 3. Indeterminate liver lesion. Indeterminate left adrenal mass. Findings are considered suspicious for metastasis, however. 4. Infrarenal abdominal aortic aneurysm. 5. Cholelithiasis. AAA Size: Follow-up Recommendation 3.0-3.4 cm Every 3 years *Based upon the Society for Vascular Surgery Guidelines: J Vasc Surg. 2009 Oct;50(4 Suppl):S2-49 *For aortas of maximum diameter of 2.6-2.9 cm meeting the criteria for AAA (?1.5 x proximal normal segment) Head MRI 04/13/19 00:00 IMPRESSION: 1. Supratentorial ring-enhancing tiny metastatic lesions, left temporal and right frontal lobes. 2. Solitary right inferior cerebellar ring-enhancing metastatic lesion. EVIDENCE OF ACUTE STROKE: NO. Assessment & Plan - Diagnosis (1) Hypercalcemia Is this a current diagnosis for this admission?: Yes (2) Lytic bone lesion of femur Is this a current diagnosis for this admission?: Yes (3) Low back pain Qualifiers: Chronicity: chronic Back pain laterality: midline Sciatica presence: without sciatica Qualified Code(s): M54.5 - Low back pain; G89.29 - Other chronic pain Is this a current diagnosis for this admission?: Yes (4) Anemia Qualifiers: Other causes of anemia: chronic disease, neoplastic Is this a current diagnosis for this admission?: Yes - Time Time Spent with patient: 15-24 minutes - Plan Summary Plan Summary: I discussed with patient and family again, goals of care. They do not wish to pursue brain radiation or biopsy. They are awaiting inpatient Hospice placement in [facility] if possible. She has Stage IV cancer, with mets to the bone and brain. Presumed lung primary. Goal is comfort. However, when asked, patient states that she still wants to be a full code. Again, she is confused and could not explain this answer properly. Family will discuss this further, as their goal is NOT for her to be placed on life support. She had dysuria yesterday, so I will check UA today. Await Hospice placement closer to family. I will be available over the weekend if there are any questions. I would continue Dexamethasone BID and decrease to 4 mg BID after 2- 3 days. Continue Duragesic patch for pain control. Consider stopping SC heparin, etc if patient is changed to DNR status. This was discussed with Dr. Proctor today.
[2019-04-15] MEDS: DOCUSATE SODIUM 100 MG CAPSULE PO SCH ×2 (09:10→17:04)
[2019-04-15] MEDS: DEXAMETHASONE 4 MG TABLET PO SCH ×2 (09:10→22:23)
[2019-04-15] MEDS: CARVEDILOL 6.25 MG TABLET PO SCH (09:10)
[2019-04-15] MEDS: ACETAMINOPHEN 325 MG TABLET PO PRN ×2 (09:10→17:04)
[2019-04-15] MEDS: HYDRALAZINE HCL INJ/PF 20 MG/1 ML SDV IV PRN ×2 (09:15→18:04)
--- NOTE | 2019-04-15 14:38 | PDOC PROGRESS REPORT ---
Subjective Progress Note for:: 04/15/19 Subjective:: DANISH DOWLING is a 63 year old female with no significant past medical history presenting to ED complaining of progressively worsening bilateral hip and left lower extremity pain. Pain is described as constant, achy in nature, 10/10 on severity scale, worsened with any weightbearing or movement, relieved with ibuprofen. She is also c/o progressive weakness, fatigue, low appetite, weight loss of 30 pounds in the last 1 month, polydipsia and polyuria. This all started about 3 months ago with no apparent cause, denies any heavy lifting, trauma, chronic back pain, history of malignancy. She denies any headache, vision changes, numbness, tingling, focal neurological deficits, dysphagia, odynophagia, shortness of breath, chest pain, nausea, diarrhea, constipation or any urinary symptoms 04/07/2019. No acute events overnight. Patient reports improvement of back and lower extremity pain since being started on sustained-release morphine by oncology, denies any fever, chills, nausea, vomiting, diarrhea, constipation or any urinary symptoms. 04/08/2019. No acute events overnight. Patient complaining of generalized weakness and feeling anxious, denies any fever, chills, nausea, vomiting, diarrhea, constipation or any urinary symptoms. Could potentially be discharged home to follow-up with Dr. Bills as outpatient however patient's pressure is not optimized and her potassium is very low. Possible discharge home tomorrow. 04/09/2019. No acute events overnight. Patient is stating that she is feeling better than yesterday, still very weak and not able to ambulate much. She still endorsing very low appetite at stating that she would like to be transitioned to SNF as she does not have a place to go to and also she is not sure that she will be able to take care of her son on her own. Still complaining of bilateral hip and left lower extremity pain otherwise denies any fever, chills, nausea, vomiting, diarrhea, constipation or any urinary symptoms. 04/10/2019. No acute events overnight. Appetite improving. Still complaining of bilateral hip and left lower extremity pain, able to ambulate, p.o. tolerant having normal bowel movement. Patient currently does not have a place to go unfortunately not be transferred to rehab due to the financial reasons, patient's son who is living at [facility] will be taking her mother to live with him, possibly Thursday or Thursday. 04/11/2019. No acute events overnight. Appetite improving. Still complaining of bilateral hip and left lower extremity pain, improving compared to admission, denies any fever, chills, nausea, vomiting, diarrhea, constipation or any urinary symptoms. Patient does not have a place to go, has decided to move in with her son, waiting for her son to pick her up possibly today or tomorrow. 04/12/2019. No acute events overnight. Still endorsing low appetite, hip and lower extremity pain improving, denies any fever, chills, nausea, vomiting, diarrhea, constipation or any urinary symptoms. 04/13/2019. No acute events overnight.Saw patient this morning right after patient and eldest son had a discussion with Dr. Ontiveros about newly found lung mass and possible metastatic disease. Patient is alert and awake and cooperative but unfortunately noted to be very confused, patient is alert to herself and does not know where she is or why she is in the hospital. Not sure if this confusion is due to pain medication or possibly due to brain metastasis. 04/14/2019. Patient is awake and alert however still only oriented to self, patient's 2 sons are at bedside, had an extensive discussion with oncology and they have decided to go ahead with inpatient hospice transition of care. Patient noted to be confused compared to admission, not sure if this is due to brain metastasis or drug-induced. 04/15/2019. No acute events overnight. Saw patient this morning, moderate improvement of mental status compared to yesterday, patient is awake and alert, interactive but unfortunately only oriented to self, family is at bedside, initially family plan was to transition to inpatient hospice and palliative care however patient is awake and alert and when asked about her decision about her treatment she says she wants to be full code but unfortunate patient is not seem to grasp her medical condition given her mental status. Family wants to wait until patient is more alert and oriented before discussing CODE STATUS and final disposition. Reason For Visit: APRIL, HYPERCALCEMIA, METASTATIC DISEASE Physical Exam Vital Signs: Temp Pulse Resp BP Pulse Ox 97.4 F 91 16 167/84 H 98 04/15/19 11:26 04/15/19 11:26 04/15/19 11:26 04/15/19 11:26 04/15/19 11:26 Intake & Output 04/14/19 04/15/19 04/16/19 06:59 06:59 06:59 Intake Total 1245 240 Balance 1245 240 Weight 70.9 kg 70.4 kg General appearance: PRESENT: no acute distress, well-developed, well-nourished Head exam: PRESENT: atraumatic, normocephalic Neck exam: ABSENT: carotid bruit, JVD, lymphadenopathy, thyromegaly Respiratory exam: PRESENT: clear to auscultation cindy. ABSENT: rales, rhonchi, wheezes Cardiovascular exam: PRESENT: RRR. ABSENT: diastolic murmur, rubs, systolic murmur GI/Abdominal exam: PRESENT: normal bowel sounds, soft. ABSENT: distended, guarding, mass, organolmegaly, rebound, tenderness Extremities exam: PRESENT: tenderness Neurological exam: PRESENT: alert, awake, oriented to person, CN II-XII grossly intact. ABSENT: motor sensory deficit Results Laboratory Results: 04/13/19 07:14 04/13/19 07:14 Impressions: Renal Ultrasound 04/06/19 00:00 IMPRESSION: 1. No abnormality of the kidneys. 2. Wells catheter within the urinary bladder. 3. Cholelithiasis without other associated ancillary findings to indicate an acute cholecystitis. Lumbar Spine CT 04/06/19 13:16 IMPRESSION: Multiple lytic lesions throughout the lumbar spine with a large expansile lesion in the left L3 transverse process. Findings are most consistent with metastatic disease. Does the patient have a known primary? Femur X-Ray 04/06/19 13:17 IMPRESSION: Lytic lesion in the mid left femur suspicious for primary neoplasm or metastatic disease. Chest X-Ray 04/06/19 16:13 IMPRESSION: NO ACUTE RADIOGRAPHIC FINDING IN THE CHEST. Skeletal Survey 04/07/19 17:43 IMPRESSION: 1. Lytic lesions in the left humerus, lumbar spine and left femur. 2. Acute nondisplaced fracture of the right posterior-lateral 7th rib. Chest CT 04/12/19 00:00 IMPRESSION: 1. Known bone lesions. Suggestive of osseous metastases. Present diffusely. 2. Primary may be pulmonary, in the left lower lobe. There is low-density masslike abnormal opacity in the apex extending to abut the hilum with probable associated mediastinal and hilar adenopathy. 3. Indeterminate liver lesion. Indeterminate left adrenal mass. Findings are considered suspicious for metastasis, however. 4. Infrarenal abdominal aortic aneurysm. 5. Cholelithiasis. AAA Size: Follow-up Recommendation 3.0-3.4 cm Every 3 years *Based upon the Society for Vascular Surgery Guidelines: J Vasc Surg. 2009 Nov;50(4 Suppl):S2-49 *For aortas of maximum diameter of 2.6-2.9 cm meeting the criteria for AAA (?1.5 x proximal normal segment) Abdomen/Pelvis CT 04/12/19 09:17 IMPRESSION: 1. Known bone lesions. Suggestive of osseous metastases. Present diffusely. 2. Primary may be pulmonary, in the left lower lobe. There is low-density masslike abnormal opacity in the apex extending to abut the hilum with probable associated mediastinal and hilar adenopathy. 3. Indeterminate liver lesion. Indeterminate left adrenal mass. Findings are considered suspicious for metastasis, however. 4. Infrarenal abdominal aortic aneurysm. 5. Cholelithiasis. AAA Size: Follow-up Recommendation 3.0-3.4 cm Every 3 years *Based upon the Society for Vascular Surgery Guidelines: J Vasc Surg. 2009 Oct;50(4 Suppl):S2-49 *For aortas of maximum diameter of 2.6-2.9 cm meeting the criteria for AAA (?1.5 x proximal normal segment) Head MRI 04/13/19 00:00 IMPRESSION: 1. Supratentorial ring-enhancing tiny metastatic lesions, left temporal and right frontal lobes. 2. Solitary right inferior cerebellar ring-enhancing metastatic lesion. EVIDENCE OF ACUTE STROKE: NO. Assessment and Plan - Diagnosis (1) AMS (altered mental status) Qualifiers: Altered mental status type: delirium Qualified Code(s): R41.0 - Disorientation, unspecified Is this a current diagnosis for this admission?: Yes Plan: Moderate improvement. Awake and alert, interactive but unfortunately only oriented to self. At baseline patient is alert and oriented x3. This was likely due to opioids for her underlying pain complicated by metastatic brain lesion. DC Marinol. DC Dilaudid. DC MS Contin. Continue fentanyl. Patient is not hypoxic, no sign of acute infection, hypoglycemia resolved and there is no electrolyte derangement. MRI brain positive for solitary ring-enhancing lesion. Implement fall, seizure and aspiration precautions. (2) Anorexia Is this a current diagnosis for this admission?: Yes Plan: Improving on Decadron. Likely due to underlying malignancy. DC Marinol. DC Megace. Encourage p.o. intake. (3) Cancer of lower lobe of lung Qualifiers: Laterality: left Qualified Code(s): C34.32 - Malignant neoplasm of lower lobe, left bronchus or lung Is this a current diagnosis for this admission?: Yes Plan: Metastatic. Noted to have lesion and the lung, brain, bones and adrenal gland. Brain MRI positive for solitary enhancing lesion. Patient has history of 40 pack smoking and quit 5 years ago. Oncology on board. Recommendations noted. (4) Anemia Qualifiers: Other causes of anemia: chronic disease, neoplastic Is this a current diagnosis for this admission?: Yes Plan: Denies any easy bruising, nosebleeds, hematemesis, hemoptysis, vaginal bleed, melena or hematochezia. H&H stable. Status post 2 PRBC transfusion 04/11/2019. Likely related to underlying malignancy. Monitor H&H. Supportive transfusions. (5) Hypercalcemia Is this a current diagnosis for this admission?: Yes Plan: Resolved. Most likely hypercalcemia of malignancy most likely lung malignancy. Initially thought to be due to multiple myeloma which has been ruled out. Presented with lytic bone lesions, anemia and APRIL Received 1 dose of zoledronic acid. PTH WNL. Monitor volume status. Calcium level tomorrow. (6) Low back pain Qualifiers: Chronicity: chronic Back pain laterality: midline Sciatica presence: without sciatica Qualified Code(s): M54.5 - Low back pain; G89.29 - Other chronic pain Is this a current diagnosis for this admission?: Yes Plan: Improving since being started on sustained-release morphine. Likely due to underlying malignancy. Supportive measures. Continue fentanyl patch. Denies any focal neurological deficits. Denies any saddle paresthesias. Denies any incontinence or urinary retention. (7) Lytic bone lesion of femur Is this a current diagnosis for this admission?: Yes Plan: Most likely underlying malignancy possibly lung cancer. Initially thought to be due to multiple myeloma given anemia, APRIL, hypercalcemia. Skeletal survey positive for diffuse lytic lesions. UPEP/SPEP negative for multiple myeloma. (8) APRIL (acute kidney injury) Is this a current diagnosis for this admission?: Yes Plan: Resolved. Likely due to underlying malignancy, multiple myeloma. Renal ultrasound unremarkable. Daily BMP. Avoid nephrotoxic meds. (9) Malignancy Is this a current diagnosis for this admission?: Yes Plan: Family has decided for inpatient hospice transition of care after discussion with oncologist. Possibly metastatic lung cancer. Initially thought to be multiple myeloma given the presentation. CT abdomen pelvis positive for multiple metastatic lesions to liver, bones and adrenal gland. Brain MRI positive for solitary ring-enhancing lesion possibly metastatic. Multiple myeloma ruled out based on negative SPEP/UPEP and finding of occult malignancy. Oncology on board. Recommendations noted. (10) Elevated LFTs Is this a current diagnosis for this admission?: Yes Plan: Unfortunately trending up. Possibly due to metastatic lung disease. CT abdomen positive for liver lesions. Patient has not received any hepatotoxic meds on this hospitalization.
[2019-04-15] MEDS ORDERED: CARVEDILOL 12.5 MG TABLET PO SCH (22:00)
[2019-04-16] MEDS: LORAZEPAM 0.5 MG TABLET PO PRN ×3 (02:52→21:32)
[2019-04-16] MEDS: PANTOPRAZOLE SODIUM 40 MG TABLET.DR PO SCH ×2 (06:14→17:47)
[2019-04-16] MEDS: DEXAMETHASONE 4 MG TABLET PO SCH (09:18)
[2019-04-16] MEDS: CARVEDILOL 12.5 MG TABLET PO SCH ×2 (09:19→21:30)
[2019-04-16] MEDS: DOCUSATE SODIUM 100 MG CAPSULE PO SCH ×2 (09:19→17:44)
[2019-04-16] MEDS: ACETAMINOPHEN 325 MG TABLET PO PRN (09:19)
[2019-04-16] MEDS ORDERED: DRONABINOL 2.5 MG CAPSULE PO ONE (12:00)
--- NOTE | 2019-04-16 12:47 | PDOC PROGRESS REPORT ---
Subjective Progress Note for:: 04/16/19 Subjective:: DANISH DOWLING is a 63 year old female with no significant past medical history presenting to ED complaining of progressively worsening bilateral hip and left lower extremity pain. Pain is described as constant, achy in nature, 10/10 on severity scale, worsened with any weightbearing or movement, relieved with ibuprofen. She is also c/o progressive weakness, fatigue, low appetite, weight loss of 30 pounds in the last 1 month, polydipsia and polyuria. This all started about 3 months ago with no apparent cause, denies any heavy lifting, trauma, chronic back pain, history of malignancy. She denies any headache, vision changes, numbness, tingling, focal neurological deficits, dysphagia, odynophagia, shortness of breath, chest pain, nausea, diarrhea, constipation or any urinary symptoms 04/07/2019. No acute events overnight. Patient reports improvement of back and lower extremity pain since being started on sustained-release morphine by oncology, denies any fever, chills, nausea, vomiting, diarrhea, constipation or any urinary symptoms. 04/08/2019. No acute events overnight. Patient complaining of generalized weakness and feeling anxious, denies any fever, chills, nausea, vomiting, diarrhea, constipation or any urinary symptoms. Could potentially be discharged home to follow-up with Dr. Bills as outpatient however patient's pressure is not optimized and her potassium is very low. Possible discharge home tomorrow. 04/09/2019. No acute events overnight. Patient is stating that she is feeling better than yesterday, still very weak and not able to ambulate much. She still endorsing very low appetite at stating that she would like to be transitioned to SNF as she does not have a place to go to and also she is not sure that she will be able to take care of her son on her own. Still complaining of bilateral hip and left lower extremity pain otherwise denies any fever, chills, nausea, vomiting, diarrhea, constipation or any urinary symptoms. 04/10/2019. No acute events overnight. Appetite improving. Still complaining of bilateral hip and left lower extremity pain, able to ambulate, p.o. tolerant having normal bowel movement. Patient currently does not have a place to go unfortunately not be transferred to rehab due to the financial reasons, patient's son who is living at [place] [facility] will be taking her mother to live with him, possibly Thursday or Thursday. 04/11/2019. No acute events overnight. Appetite improving. Still complaining of bilateral hip and left lower extremity pain, improving compared to admission, denies any fever, chills, nausea, vomiting, diarrhea, constipation or any urinary symptoms. Patient does not have a place to go, has decided to move in with her son, waiting for her son to pick her up possibly today or tomorrow. 04/12/2019. No acute events overnight. Still endorsing low appetite, hip and lower extremity pain improving, denies any fever, chills, nausea, vomiting, diarrhea, constipation or any urinary symptoms. 04/13/2019. No acute events overnight.Saw patient this morning right after patient and eldest son had a discussion with Dr. Ontiveros about newly found lung mass and possible metastatic disease. Patient is alert and awake and cooperative but unfortunately noted to be very confused, patient is alert to herself and does not know where she is or why she is in the hospital. Not sure if this confusion is due to pain medication or possibly due to brain metastasis. 04/14/2019. Patient is awake and alert however still only oriented to self, patient's 2 sons are at bedside, had an extensive discussion with oncology and they have decided to go ahead with inpatient hospice transition of care. Patient noted to be confused compared to admission, not sure if this is due to brain metastasis or drug-induced. 04/15/2019. No acute events overnight. Saw patient this morning, moderate improvement of mental status compared to yesterday, patient is awake and alert, interactive but unfortunately only oriented to self, family is at bedside, initially family plan was to transition to inpatient hospice and palliative care however patient is awake and alert and when asked about her decision about her treatment she says she wants to be full code but unfortunate patient is not seem to grasp her medical condition given her mental status. Family wants to wait until patient is more alert and oriented before discussing CODE STATUS and final disposition. 04/16/2019. No acute events overnight. Family is at bedside, patient is more awake and alert today, more interactive and communicative, mental status seems to be improving, patient is alert and oriented x3, she does understand that she has metastatic lung cancer but I am not sure if she grasps the whole idea, when asked about her case she states that she just wants to be comfortable, when asked if she would like CPR or intubation she sees she does not want either as none of them will help with her underlying medical condition. Her pain is controlled, appetite is improving, just complaining of headache today, denies a ny fever, chills, nausea, vomiting, diarrhea, constipation. Her sons who are accompanying her in the room report that patient is more anxious and could not sleep much last night, they think this could be due to Decadron and they want it to be switch with Marinol. Reason For Visit: APRIL, HYPERCALCEMIA, METASTATIC DISEASE Physical Exam Vital Signs: Temp Pulse Resp BP Pulse Ox 98.4 F 85 19 177/82 H 96 04/16/19 08:00 04/16/19 08:00 04/16/19 08:00 04/16/19 08:00 04/16/19 08:00 Intake & Output 04/15/19 04/16/19 04/17/19 06:59 06:59 07:59 Intake Total 1245 480 Balance 1245 480 Weight 70.4 kg 70.2 kg General appearance: PRESENT: no acute distress, well-developed, well-nourished Head exam: PRESENT: atraumatic, normocephalic Respiratory exam: PRESENT: clear to auscultation cindy. ABSENT: rales, rhonchi, wheezes Cardiovascular exam: PRESENT: RRR. ABSENT: diastolic murmur, rubs, systolic murmur GI/Abdominal exam: PRESENT: normal bowel sounds, soft. ABSENT: distended, guarding, mass, organolmegaly, rebound, tenderness Neurological exam: PRESENT: alert, awake, oriented to person, oriented to place, oriented to time, oriented to situation, CN II-XII grossly intact. ABSENT: motor sensory deficit Psychiatric exam: PRESENT: depressed Results Laboratory Results: 04/13/19 07:14 04/13/19 07:14 Impressions: Renal Ultrasound 04/06/19 00:00 IMPRESSION: 1. No abnormality of the kidneys. 2. Wells catheter within the urinary bladder. 3. Cholelithiasis without other associated ancillary findings to indicate an acute cholecystitis. Lumbar Spine CT 04/06/19 13:16 IMPRESSION: Multiple lytic lesions throughout the lumbar spine with a large expansile lesion in the left L3 transverse process. Findings are most consistent with metastatic disease. Does the patient have a known primary? Femur X-Ray 04/06/19 13:17 IMPRESSION: Lytic lesion in the mid left femur suspicious for primary neoplasm or metastatic disease. Chest X-Ray 04/06/19 16:13 IMPRESSION: NO ACUTE RADIOGRAPHIC FINDING IN THE CHEST. Skeletal Survey 04/07/19 17:43 IMPRESSION: 1. Lytic lesions in the left humerus, lumbar spine and left femur. 2. Acute nondisplaced fracture of the right posterior-lateral 7th rib. Chest CT 04/12/19 00:00 IMPRESSION: 1. Known bone lesions. Suggestive of osseous metastases. Present diffusely. 2. Primary may be pulmonary, in the left lower lobe. There is low-density masslike abnormal opacity in the apex extending to abut the hilum with probable associated mediastinal and hilar adenopathy. 3. Indeterminate liver lesion. Indeterminate left adrenal mass. Findings are considered suspicious for metastasis, however. 4. Infrarenal abdominal aortic aneurysm. 5. Cholelithiasis. AAA Size: Follow-up Recommendation 3.0-3.4 cm Every 3 years *Based upon the Society for Vascular Surgery Guidelines: J Vasc Surg. 2009 Nov;50(4 Suppl):S2-49 *For aortas of maximum diameter of 2.6-2.9 cm meeting the criteria for AAA (?1.5 x proximal normal segment) Abdomen/Pelvis CT 04/12/19 09:17 IMPRESSION: 1. Known bone lesions. Suggestive of osseous metastases. Present diffusely. 2. Primary may be pulmonary, in the left lower lobe. There is low-density masslike abnormal opacity in the apex extending to abut the hilum with probable associated mediastinal and hilar adenopathy. 3. Indeterminate liver lesion. Indeterminate left adrenal mass. Findings are considered suspicious for metastasis, however. 4. Infrarenal abdominal aortic aneurysm. 5. Cholelithiasis. AAA Size: Follow-up Recommendation 3.0-3.4 cm Every 3 years *Based upon the Society for Vascular Surgery Guidelines: J Vasc Surg. 2009 Nov;50(4 Suppl):S2-49 *For aortas of maximum diameter of 2.6-2.9 cm meeting the criteria for AAA (?1.5 x proximal normal segment) Head MRI 04/13/19 00:00 IMPRESSION: 1. Supratentorial ring-enhancing tiny metastatic lesions, left temporal and right frontal lobes. 2. Solitary right inferior cerebellar ring-enhancing metastatic lesion. EVIDENCE OF ACUTE STROKE: NO. Assessment and Plan - Diagnosis (1) AMS (altered mental status) Qualifiers: Altered mental status type: delirium Qualified Code(s): R41.0 - Disori entation, unspecified Is this a current diagnosis for this admission?: Yes Plan: Moderate improvement. Awake and alert. Oriented x3. At baseline patient is alert and oriented x3. This was likely due to opioids for her underlying pain complicated by metastatic brain lesion. DC Dilaudid. DC MS Contin. Continue fentanyl. Patient is not hypoxic, no sign of acute infection, hypoglycemia resolved and there is no electrolyte derangement. MRI brain positive for solitary ring-enhancing lesion. Implement fall, seizure and aspiration precautions. (2) Anorexia Is this a current diagnosis for this admission?: Yes Plan: Mild improvement on Decadron however patient family stated that it is making her anxious and affecting her sleep. Family wants to switch Decadron with Marinol and see if it is more helpful. Likely due to underlying malignancy. DC Decadron, switch with Marinol. Hold Megace. Encourage p.o. intake. (3) Cancer of lower lobe of lung Qualifiers: Laterality: left Qualified Code(s): C34.32 - Malignant neoplasm of lower lobe, left bronchus or lung Is this a current diagnosis for this admission?: Yes Plan: Metastatic. Noted to have lesions and the lung, brain, bones and adrenal gland. Brain MRI positive for solitary enhancing lesion. Patient has history of 40 pack smoking and quit 5 years ago. Oncology on board. Palliative care recommended. (4) Anemia Qualifiers: Other causes of anemia: chronic disease, neoplastic Is this a current diagnosis for this admission?: Yes Plan: Denies any easy bruising, nosebleeds, hematemesis, hemoptysis, vaginal bleed, melena or hematochezia. H&H stable. Status post 2 PRBC transfusion 04/11/2019. Likely related to underlying malignancy. Monitor H&H. Supportive transfusions. (5) Low back pain Qualifiers: Chronicity: chronic Back pain laterality: midline Sciatica presence: without sciatica Qualified Code(s): M54.5 - Low back pain; G89.29 - Other chronic pain Is this a current diagnosis for this admission?: Yes Plan: Controlled on fentanyl patch. Likely due to underlying malignancy. Supportive measures. Continue fentanyl patch. Denies any focal neurological deficits. Denies any saddle paresthesias. Denies any incontinence or urinary retention. Dilaudid had to be DC'd due to altered mental status. MS Contin had to be DC'd due to altered mental status and possibly causing eleva sam LFTs. (6) Lytic bone lesion of femur Is this a current diagnosis for this admission?: Yes Plan: Most likely underlying malignancy possibly lung cancer. Initially thought to be due to multiple myeloma given anemia, APRIL, hypercal cemia. Skeletal survey positive for diffuse lytic lesions. UPEP/SPEP negative for multiple myeloma. (7) Malignancy Is this a current diagnosis for this admission?: Yes Plan: Family has decided for inpatient hospice transition of care after discussion with oncologist. Possibly metastatic lung cancer. Initially thought to be multiple myeloma given the presentation. CT abdomen pelvis positive for multiple metastatic lesions to liver, bones and adrenal gland. Brain MRI positive for solitary ring-enhancing lesion possibly metastatic. Multiple myeloma ruled out based on negative SPEP/UPEP and finding of occult malignancy. Oncology on board. Recommendations noted. (8) Elevated LFTs Is this a current diagnosis for this admission?: Yes Plan: Unfortunately trending. Possibly due to metastatic lung disease. CT abdomen positive for liver lesions. Patient has not received any hepatotoxic meds on this hospitalization. (9) Hypercalcemia Is this a current diagnosis for this admission?: Yes Plan: Resolved. Most likely hypercalcemia of malignancy most likely lung malignancy. Initially thought to be due to multiple myeloma which has been ruled out. Presented with lytic bone lesions, anemia and APRIL Received 1 dose of zoledronic acid. PTH WNL. Monitor volume status. Calcium level tomorrow. (10) APRIL (acute kidney injury) Is this a current diagnosis for this admission?: Yes Plan: Resolved. Likely due to underlying malignancy, multiple myeloma. Renal ultrasound unremarkable. Daily BMP. Avoid nephrotoxic meds. (11) Hypertension Is this a current diagnosis for this admission?: Yes Plan: Not optimized. Initially controlled on Coreg 12.5 mg p.o. twice daily. Pressure going up likely due to Decadron. Increase Coreg to 25 mg p.o. twice daily. Hold Decadron. PRN IV hydralazine and metoprolol.
--- NOTE | 2019-04-16 17:33 | PDOC PROGRESS REPORT ---
Subjective Progress Note for:: 04/16/19 Subjective:: Patient is alert and remains talkative. She does not remember our discussion yesterday, but states that she remembers she has cancer and tells me that she does not want to be placed on any machines for life support. Family is at bedside. Reason For Visit: APRIL, HYPERCALCEMIA, METASTATIC DISEASE Physical Exam Vital Signs: Temp Pulse Resp BP Pulse Ox 98.1 F 89 18 183/91 H 95 04/16/19 12:00 04/16/19 12:00 04/16/19 12:00 04/16/19 12:00 04/16/19 12:00 Intake & Output 04/15/19 04/16/19 04/17/19 06:59 06:59 07:59 Intake Total 1245 480 Balance 1245 480 Weight 70.4 kg 70.2 kg 70.2 kg General appearance: PRESENT: no acute distress Head exam: PRESENT: normocephalic Respiratory exam: PRESENT: clear to auscultation cindy, unlabored Cardiovascular exam: PRESENT: RRR Extremities exam: ABSENT: pedal edema Neurological exam: PRESENT: alert, awake Psychiatric exam: PRESENT: appropriate affect Skin exam: PRESENT: normal color Results Laboratory Results: 04/13/19 07:14 04/13/19 07:14 Impressions: Renal Ultrasound 04/06/19 00:00 IMPRESSION: 1. No abnormality of the kidneys. 2. Wells catheter within the urinary bladder. 3. Cholelithiasis without other associated ancillary findings to indicate an acute cholecystitis. Lumbar Spine CT 04/06/19 13:16 IMPRESSION: Multiple lytic lesions throughout the lumbar spine with a large expansile lesion in the left L3 transverse process. Findings are most consistent with metastatic disease. Does the patient have a known primary? Femur X-Ray 04/06/19 13:17 IMPRESSION: Lytic lesion in the mid left femur suspicious for primary neoplasm or metastatic disease. Chest X-Ray 04/06/19 16:13 IMPRESSION: NO ACUTE RADIOGRAPHIC FINDING IN THE CHEST. Skeletal Survey 04/07/19 17:43 IMPRESSION: 1. Lytic lesions in the left humerus, lumbar spine and left femur. 2. Acute nondisplaced fracture of the right posterior-lateral 7th rib. Chest CT 04/12/19 00:00 IMPRESSION: 1. Known bone lesions. Suggestive of osseous metastases. Present diffusely. 2. Primary may be pulmonary, in the left lower lobe. There is low-density masslike abnormal opacity in the apex extending to abut the hilum with probable associated mediastinal and hilar adenopathy. 3. Indeterminate liver lesion. Indeterminate left adrenal mass. Findings are considered suspicious for metastasis, however. 4. Infrarenal abdominal aortic aneurysm. 5. Cholelithiasis. AAA Size: Follow-up Recommendation 3.0-3.4 cm Every 3 years *Based upon the Society for Vascular Surgery Guidelines: J Vasc Surg. 2009 Oct;50(4 Suppl):S2-49 *For aortas of maximum diameter of 2.6-2.9 cm meeting the criteria for AAA (?1.5 x proximal normal segment) Abdomen/Pelvis CT 04/12/19 09:17 IMPRESSION: 1. Known bone lesions. Suggestive of osseous metastases. Present diffusely. 2. Primary may be pulmonary, in the left lower lobe. There is low-density masslike abnormal opacity in the apex extending to abut the hilum with probable associated mediastinal and hilar adenopathy. 3. Indeterminate liver lesion. Indeterminate left adrenal mass. Findings are considered suspicious for metastasis, however. 4. Infrarenal abdominal aortic aneurysm. 5. Cholelithiasis. AAA Size: Follow-up Recommendation 3.0-3.4 cm Every 3 years *Based upon the Society for Vascular Surgery Guidelines: J Vasc Surg. 2009 Oct;50(4 Suppl):S2-49 *For aortas of maximum diameter of 2.6-2.9 cm meeting the criteria for AAA (?1.5 x proximal normal segment) Head MRI 04/13/19 00:00 IMPRESSION: 1. Supratentorial ring-enhancing tiny metastatic lesions, left temporal and right frontal lobes. 2. Solitary right inferior cerebellar ring-enhancing metastatic lesion. EVIDENCE OF ACUTE STROKE: NO. Assessment & Plan - Diagnosis (1) Hypercalcemia Is this a current diagnosis for this admission?: Yes (2) Lytic bone lesion of femur Is this a current diagnosis for this admission?: Yes (3) Low back pain Qualifiers: Chronicity: chronic Back pain laterality: midline Sciatica presence: without sciatica Qualified Code(s): M54.5 - Low back pain; G89.29 - Other chronic pain Is this a current diagnosis for this admission?: Yes (4) Anemia Qualifiers: Other causes of anemia: chronic disease, neoplastic Is this a current diagnosis for this admission?: Yes - Time Time Spent with patient: 15-24 minutes - Plan Summary Plan Summary: All acute problems have been resolved. She has metastatic cancer to the bones and brain. Presumed Ling primary. She is currently stable to be discharged w [facility]. However, no family members are willing to take her home. They are currently looking into an inpatient Hospice type setting. I will decrease her Dexamethasone to 4 mg BID today and slowly wean, as tolerated. Continue Deragesic patch at 75 mcg/hr.
[2019-04-16] MEDS: OXYCODONE-ACETAMINOPHEN 5-325 MG TABLET PO PRN (17:45)
[2019-04-17] MEDS: OXYCODONE-ACETAMINOPHEN 5-325 MG TABLET PO PRN ×4 (00:15→20:50)
[2019-04-17 05:46] LABS: ALBUMIN 3.3 g/dL (3.5-5.0); ALKALINE PHOSPHATASE 256 U/L (38-126); ANION GAP 12 (5-19); ASPARTATE AMINO TRANSFERASE 62 U/L (14-36); BILIRUBIN,DIRECT 0.1 mg/dL (0.0-0.4); BILIRUBIN,TOTAL 0.5 mg/dL (0.2-1.3); BLOOD UREA NITROGEN 21 mg/dL (7-20); CALCIUM 8.7 mg/dL (8.4-10.2); CARBON DIOXIDE 21 mmol/L (22-30); CHLORIDE 108 mmol/L (98-107); GLUCOSE 116 mg/dL (75-110); POTASSIUM 4.1 mmol/L (3.6-5.0)
[2019-04-17] MEDS: FENTANYL 75 MCG/HR PATCH.TD72 TD SCH (09:16)
[2019-04-17] MEDS: CARVEDILOL 12.5 MG TABLET PO SCH ×2 (09:17→22:25)
[2019-04-17] MEDS: DOCUSATE SODIUM 100 MG CAPSULE PO SCH ×2 (09:17→17:24)
[2019-04-17] MEDS: ONDANSETRON HCL INJ/PF 4 MG/2 ML SDV IV PRN (09:17)
[2019-04-17] MEDS ORDERED: DRONABINOL 2.5 MG CAPSULE PO PRN (10:03)
[2019-04-17] MEDS: DRONABINOL 2.5 MG CAPSULE PO SCH ×2 (11:49→17:00)
--- NOTE | 2019-04-17 12:14 | PDOC PROGRESS REPORT ---
Subjective Progress Note for:: 04/17/19 Subjective:: DANISH DOWLING is a 63 year old female with no significant past medical history presenting to ED complaining of progressively worsening bilateral hip and left lower extremity pain. Pain is described as constant, achy in nature, 10/10 on severity scale, worsened with any weightbearing or movement, relieved with ibuprofen. She is also c/o progressive weakness, fatigue, low appetite, weight loss of 30 pounds in the last 1 month, polydipsia and polyuria. This all started about 3 months ago with no apparent cause, denies any heavy lifting, trauma, chronic back pain, history of malignancy. She denies any headache, vision changes, numbness, tingling, focal neurological deficits, dysphagia, odynophagia, shortness of breath, chest pain, nausea, diarrhea, constipation or any urinary symptoms 04/07/2019. No acute events overnight. Patient reports improvement of back and lower extremity pain since being started on sustained-release morphine by oncology, denies any fever, chills, nausea, vomiting, diarrhea, constipation or any urinary symptoms. 04/08/2019. No acute events overnight. Patient complaining of generalized weakness and feeling anxious, denies any fever, chills, nausea, vomiting, diarrhea, constipation or any urinary symptoms. Could potentially be discharged home to follow-up with Dr. Bills as outpatient however patient's pressure is not optimized and her potassium is very low. Possible discharge home tomorrow. 04/09/2019. No acute events overnight. Patient is stating that she is feeling better than yesterday, still very weak and not able to ambulate much. She still endorsing very low appetite at stating that she would like to be transitioned to SNF as she does not have a place to go to and also she is not sure that she will be able to take care of her son on her own. Still complaining of bilateral hip and left lower extremity pain otherwise denies any fever, chills, nausea, vomiting, diarrhea, constipation or any urinary symptoms. 04/10/2019. No acute events overnight. Appetite improving. Still complaining of bilateral hip and left lower extremity pain, able to ambulate, p.o. tolerant having normal bowel movement. Patient currently does not have a place to go unfortunately not be transferred to rehab due to the financial reasons, patient's son who is living at [facility] will be taking her mother to live with him, possibly Thursday or Thursday. 04/11/2019. No acute events overnight. Appetite improving. Still complaining of bilateral hip and left lower extremity pain, improving compared to admission, denies any fever, chills, nausea, vomiting, diarrhea, constipation or any urinary symptoms. Patient does not have a place to go, has decided to move in with her son, waiting for her son to pick her up possibly today or tomorrow. 04/12/2019. No acute events overnight. Still endorsing low appetite, hip and lower extremity pain improving, denies any fever, chills, nausea, vomiting, diarrhea, constipation or any urinary symptoms. 04/13/2019. No acute events overnight.Saw patient this morning right after patient and eldest son had a discussion with Dr. Ontiveros about newly found lung mass and possible metastatic disease. Patient is alert and awake and cooperative but unfortunately noted to be very confused, patient is alert to herself and does not know where she is or why she is in the hospital. Not sure if this confusion is due to pain medication or possibly due to brain metastasis. 04/14/2019. Patient is awake and alert however still only oriented to self, patient's 2 sons are at bedside, had an extensive discussion with oncology and they have decided to go ahead with inpatient hospice transition of care. Patient noted to be confused compared to admission, not sure if this is due to brain metastasis or drug-induced. 04/15/2019. No acute events overnight. Saw patient this morning, moderate improvement of mental status compared to yesterday, patient is awake and alert, interactive but unfortunately only oriented to self, family is at bedside, initially family plan was to transition to inpatient hospice and palliative care however patient is awake and alert and when asked about her decision about her treatment she says she wants to be full code but unfortunate patient is not seem to grasp her medical condition given her mental status. Family wants to wait until patient is more alert and oriented before discussing CODE STATUS and final disposition. 04/16/2019. No acute events overnight. Family is at bedside, patient is more awake and alert today, more interactive and communicative, mental status seems to be improving, patient is alert and oriented x3, she does understand that she has metastatic lung cancer but I am not sure if she grasps the whole idea, when asked about her case she states that she just wants to be comfortable, when asked if she would like CPR or intubation she sees she does not want either as none of them will help with her underlying medical condition. Her pain is controlled, appetite is improving, just complaining of headache today, denies a ny fever, chills, nausea, vomiting, diarrhea, constipation. Her sons who are accompanying her in the room report that patient is more anxious and could not sleep much last night, they think this could be due to Decadron and they want it to be switch with Marinol. 04/17/2019. No acute events overnight. Alert and oriented. Complaining of nausea, pain is controlled, patient is currently DNR, feeling to transition to inpatient hospice. Reason For Visit: ARPIL, HYPERCALCEMIA, METASTATIC DISEASE Physical Exam Vital Signs: Temp Pulse Resp BP Pulse Ox 98.1 F 83 18 179/83 H 96 04/17/19 08:00 04/17/19 08:00 04/17/19 08:00 04/17/19 08:00 04/17/19 08:00 Intake & Output 04/16/19 04/17/19 04/18/19 05:59 06:59 06:59 Intake Total Output Total Balance Weight Results Laboratory Results: 04/13/19 07:14 04/17/19 04:26 04/17/19 04:26 Sodium 140.5 Potassium 4.1 Chloride 108 H Carbon Dioxide 21 L Anion Gap 12 BUN 21 H Creatinine 0.63 Est GFR ( Amer) > 60 Glucose 116 H Calcium 8.7 Magnesium 1.8 Total Bilirubin 0.5 AST 62 H Alkaline Phosphatase 256 H Total Protein 6.0 L Albumin 3.3 L Impressions: Renal Ultrasound 04/06/19 00:00 IMPRESSION: 1. No abnormality of the kidneys. 2. Wells catheter within the urinary bladder. 3. Cholelithiasis without other associated ancillary findings to indicate an acute cholecystitis. Lumbar Spine CT 04/06/19 13:16 IMPRESSION: Multiple lytic lesions throughout the lumbar spine with a large expansile lesion in the left L3 transverse process. Findings are most consistent with metastatic disease. Does the patient have a known primary? Femur X-Ray 04/06/19 13:17 IMPRESSION: Lytic lesion in the mid left femur suspicious for primary neoplasm or metastatic disease. Chest X-Ray 04/06/19 16:13 IMPRESSION: NO ACUTE RADIOGRAPHIC FINDING IN THE CHEST. Skeletal Survey 04/07/19 17:43 IMPRESSION: 1. Lytic lesions in the left humerus, lumbar spine and left femur. 2. Acute nondisplaced fracture of the right posterior-lateral 7th rib. Chest CT 04/12/19 00:00 IMPRESSION: 1. Known bone lesions. Suggestive of osseous metastases. Present diffusely. 2. Primary may be pulmonary, in the left lower lobe. There is low-density masslike abnormal opacity in the apex extending to abut the hilum with probable associated mediastinal and hilar adenopathy. 3. Indeterminate liver lesion. Indeterminate left adrenal mass. Findings are considered suspicious for metastasis, however. 4. Infrarenal abdominal aortic aneurysm. 5. Cholelithiasis. AAA Size: Follow-up Recommendation 3.0-3.4 cm Every 3 years *Based upon the Society for Vascular Surgery Guidelines: J Vasc Surg. 2009 Nov;50(4 Suppl):S2-49 *For aortas of maximum diameter of 2.6-2.9 cm meeting the criteria for AAA (?1.5 x proximal normal segment) Abdomen/Pelvis CT 04/12/19 09:17 IMPRESSION: 1. Known bone lesions. Suggestive of osseous metastases. Present diffusely. 2. Primary may be pulmonary, in the left lower lobe. There is low-density masslike abnormal opacity in the apex extending to abut the hilum with probable associated mediastinal and hilar adenopathy. 3. Indeterminate liver lesion. Indeterminate left adrenal mass. Findings are considered suspicious for metastasis, however. 4. Infrarenal abdominal aortic aneurysm. 5. Cholelithiasis. AAA Size: Follow-up Recommendation 3.0-3.4 cm Every 3 years *Based upon the Society for Vascular Surgery Guidelines: J Vasc Surg. 2009 Nov;50(4 Suppl):S2-49 *For aortas of maximum diameter of 2.6-2.9 cm meeting the criteria for AAA (?1.5 x proximal normal segment) Head MRI 04/13/19 00:00 IMPRESSION: 1. Supratentorial ring-enhancing tiny metastatic lesions, left temporal and right frontal lobes. 2. Solitary right inferior cerebellar ring-enhancing metastatic lesion. EVIDENCE OF ACUTE STROKE: NO. Assessment and Plan - Diagnosis (1) AMS (altered mental status) Qualifiers: Altered mental status type: delirium Qualified Code(s): R41.0 - Disorientation, unspecified Is this a current diagnosis for this admission?: Yes Plan: Moderate improvement. Awake and alert. Oriented x3. At baseline patient is alert and oriented x3. This was likely due to opioids for her underlying pain complicated by metastatic brain lesion. DC Dilaudid. DC MS Contin. Continue fentanyl. Patient is not hypoxic, no sign of acute infection, hypoglycemia resolved and there is no electrolyte derangement. MRI brain positive for solitary ring-enhancing lesion. Implement fall, seizure and aspiration precautions. (2) Anorexia Is this a current diagnosis for this admission?: Yes Plan: Mild improvement on Decadron however patient family stated that it is making her anxious and affecting her sleep. Family wants to switch Decadron with Marinol and see if it is more helpful. Likely due to underlying malignancy. DC Decadron, switch with Marinol. Hold Megace. Encourage p.o. intake. (3) Cancer of lower lobe of lung Qualifiers: Laterality: left Qualified Code(s): C34.32 - Malignant neoplasm of lower lobe, left bronchus or lung Is this a current diagnosis for this admission?: Yes Plan: Metastatic. Noted to have lesions and the lung, brain, bones and adrenal gland. Brain MRI positive for solitary enhancing lesion. Patient has history of 40 pack smoking and quit 5 years ago. Oncology on board. Palliative care recommended. (4) Anemia Qualifiers: Other causes of anemia: chronic disease, neoplastic Is this a current diagnosis for this admission?: Yes Plan: Denies any easy bruising, nosebleeds, hematemesis, hemoptysis, vaginal bleed, melena or hematochezia. H&H stable. Status post 2 PRBC transfusion 04/11/2019. Likely related to underlying malignancy. Monitor H&H. Supportive transfusions. (5) Low back pain Qualifiers: Chronicity: chronic Back pain laterality: midline Sciatica presence: without sciatica Qualified Code(s): M54.5 - Low back pain; G89.29 - Other chronic pain Is this a current diagnosis for this admission?: Yes Plan: Controlled on fentanyl patch. Likely due to underlying malignancy. Supportive measures. Continue fentanyl patch. Denies any focal neurological deficits. Denies any saddle paresthesias. Denies any incontinence or urinary retention. Dilaudid had to be DC'd due to altered mental status. MS Contin had to be DC'd due to altered mental status and possibly causing elevated LFTs. (6) Lytic bone lesion of femur Is this a current diagnosis for this admission?: Yes Plan: Most likely underlying malignancy possibly lung cancer. Initially thought to be due to multiple myeloma given anemia, APRIL, hypercalcemia. Skeletal survey positive for diffuse lytic lesions. UPEP/SPEP negative for multiple myeloma. (7) Malignancy Is this a current diagnosis for this admission?: Yes Plan: Family has decided for inpatient hospice transition of care after discussion with oncologist. Possibly metastatic lung cancer. Initially thought to be multiple myeloma given the presentation. CT abdomen pelvis positive for multiple metastatic lesions to liver, bones and adrenal gland. Brain MRI positive for solitary ring-enhancing lesion possibly metastatic. Multiple myeloma ruled out based on negative SPEP/UPEP and finding of occult malignancy. Oncology on board. Recommendations noted. (8) Elevated LFTs Is this a current diagnosis for this admission?: Yes Plan: Trending down. Possibly due to metastatic lung disease. CT abdomen positive for liver lesions. Patient has not received any hepatotoxic meds on this hospitalization. (9) Hypercalcemia Is this a current diagnosis for this admission?: Yes Plan: Resolved. Most likely hypercalcemia of malignancy most likely lung malignancy. Initially thought to be due to multiple myeloma which has been ruled out. Presented with lytic bone lesions, anemia and APRIL Received 1 dose of zoledronic acid. PTH WNL. Monitor volume status. Calcium level tomorrow. (10) APRIL (acute kidney injury) Is this a current diagnosis for this admission?: Yes Plan: Resolved. Likely due to underlying malignancy, multiple myeloma. Renal ultrasound unremarkable. Daily BMP. Avoid nephrotoxic meds. (11) Hypertension Is this a current diagnosis for this admission?: Yes Plan: Not optimized. Initially controlled on Coreg 12.5 mg p.o. twice daily. Pressure going up likely due to Decadron. Increase Coreg to 25 mg p.o. twice daily. Hold Decadron. PRN IV hydralazine and metoprolol.
[2019-04-17] MEDS: ACETAMINOPHEN 325 MG TABLET PO PRN (17:30)
[2019-04-17] MEDS: DEXAMETHASONE 4 MG TABLET PO SCH (22:25)
[2019-04-17] MEDS: LORAZEPAM 0.5 MG TABLET PO PRN (22:25)
[2019-04-18] MEDS: OXYCODONE-ACETAMINOPHEN 5-325 MG TABLET PO PRN ×4 (01:00→20:13)
--- NOTE | 2019-04-18 08:23 | PDOC PROGRESS REPORT ---
Subjective Progress Note for:: 04/18/19 Subjective:: No acute events overnight, [facility], it is probably because patient is self-pay, awaiting Medicaid. Otherwise current nurse notes that patient has whitish exudate in the mouth, on visual inspection it does seem thrush may be possible. Gave order for nystatin. Reason For Visit: APRIL, HYPERCALCEMIA, METASTATIC DISEASE Physical Exam Vital Signs: Temp Pulse Resp BP Pulse Ox 97.8 F 74 14 145/78 H 98 04/18/19 00:05 04/18/19 00:05 04/18/19 00:05 04/18/19 00:05 04/18/19 00:05 Intake & Output 04/17/19 04/18/19 04/19/19 06:59 06:59 06:59 Intake Total 460 Output Total Balance 460 Weight 59 kg General appearance: PRESENT: no acute distress, well-developed, well-nourished Head exam: PRESENT: atraumatic, normocephalic Eye exam: PRESENT: conjunctiva pink, EOMI, PERRLA. ABSENT: scleral icterus Ear exam: PRESENT: normal external ear exam Mouth exam: PRESENT: moist, tongue midline Neck exam: ABSENT: carotid bruit, JVD, lymphadenopathy, thyromegaly Respiratory exam: PRESENT: clear to auscultation cindy. ABSENT: rales, rhonchi, wheezes Cardiovascular exam: PRESENT: RRR. ABSENT: diastolic murmur, rubs, systolic murmur Pulses: PRESENT: normal dorsalis pedis pul Vascular exam: PRESENT: normal capillary refill GI/Abdominal exam: PRESENT: normal bowel sounds, soft. ABSENT: distended, guarding, mass, organolmegaly, rebound, tenderness Rectal exam: PRESENT: deferred Extremities exam: PRESENT: full ROM. ABSENT: calf tenderness, clubbing, pedal edema Neurological exam: PRESENT: alert, awake, oriented to person, oriented to place, oriented to time, oriented to situation, CN II-XII grossly intact. ABSENT: motor sensory deficit Psychiatric exam: PRESENT: appropriate affect, normal mood. ABSENT: homicidal ideation, suicidal ideation Skin exam: PRESENT: dry, intact, warm. ABSENT: cyanosis, rash Results Laboratory Results: 04/13/19 07:14 04/17/19 04:26 04/16/19 03:30 Clean Catch Midstream Urine Culture - Final Mixed Urogenital Shirlene Impressions: Renal Ultrasound 04/06/19 00:00 IMPRESSION: 1. No abnormality of the kidneys. 2. Wells catheter within the urinary bladder. 3. Cholelithiasis without other associated ancillary findings to indicate an acute cholecystitis. Lumbar Spine CT 04/06/19 13:16 IMPRESSION: Multiple lytic lesions throughout the lumbar spine with a large expansile lesion in the left L3 transverse process. Findings are most consistent with metastatic disease. Does the patient have a known primary? Femur X-Ray 04/06/19 13:17 IMPRESSION: Lytic lesion in the mid left femur suspicious for primary neoplasm or metastatic disease. Chest X-Ray 04/06/19 16:13 IMPRESSION: NO ACUTE RADIOGRAPHIC FINDING IN THE CHEST. Skeletal Survey 04/07/19 17:43 IMPRESSION: 1. Lytic lesions in the left humerus, lumbar spine and left femur. 2. Acute nondisplaced fracture of the right posterior-lateral 7th rib. Chest CT 04/12/19 00:00 IMPRESSION: 1. Known bone lesions. Suggestive of osseous metastases. Present diffusely. 2. Primary may be pulmonary, in the left lower lobe. There is low-density masslike abnormal opacity in the apex extending to abut the hilum with probable associated mediastinal and hilar adenopathy. 3. Indeterminate liver lesion. Indeterminate left adrenal mass. Findings are considered suspicious for metastasis, however. 4. Infrarenal abdominal aortic aneurysm. 5. Cholelithiasis. AAA Size: Follow-up Recommendation 3.0-3.4 cm Every 3 years_ ____ *Based upon the Society for Vascular Surgery Guidelines: J Vasc Surg. 2009 Nov;50(4 Suppl):S2-49 *For aortas of maximum diameter of 2.6-2.9 cm meeting the criteria for AAA (?1.5 x proximal normal segment) Abdomen/Pelvis CT 04/12/19 09:17 IMPRESSION: 1. Known bone lesions. Suggestive of osseous metastases. Present diffusely. 2. Primary may be pulmonary, in the left lower lobe. There is low-density masslike abnormal opacity in the apex extending to abut the hilum with probable associated mediastinal and hilar adenopathy. 3. Indeterminate liver lesion. Indeterminate left adrenal mass. Findings are considered suspicious for metastasis, however. 4. Infrarenal abdominal aortic aneurysm. 5. Cholelithiasis. AAA Size: Follow-up Recommendation 3.0-3.4 cm Every 3 years *Based upon the Society for Vascular Surgery Guidelines: J Vasc Surg. 2009 Nov;50(4 Suppl):S2-49 *For aortas of maximum diameter of 2.6-2.9 cm meeting the criteria for AAA (?1.5 x proximal normal segment) Head MRI 04/13/19 00:00 IMPRESSION: 1. Supratentorial ring-enhancing tiny metastatic lesions, left temporal and right frontal lobes. 2. Solitary right inferior cerebellar ring-enhancing metastatic lesion. EVIDENCE OF ACUTE STROKE: NO. Assessment & Plan - Diagnosis (1) Cancer of lower lobe of lung Qualifiers: Laterality: left Qualified Code(s): C34.32 - Malignant neoplasm of lower lobe, left bronchus or lung Is this a current diagnosis for this admission?: Yes Plan: No further therapy planned, patient is inpatient hospice appropriate, awaiting placement (2) AMS (altered mental status) Qualifiers: Altered mental status type: delirium Qualified Code(s): R41.0 - Disorientation, unspecified Is this a current diagnosis for this admission?: Yes Plan: No improvement, stable (3) Pain, neoplasm-related Is this a current diagnosis for this admission?: Yes Plan: Continue with current pain control, per nursing seems adequate - Time Time Spent with patient: 35 or more minutes
[2019-04-18] MEDS: CARVEDILOL 12.5 MG TABLET PO SCH ×2 (10:12→21:59)
[2019-04-18] MEDS: NYSTATIN 500000 UNIT/5 ML UDCUP PO SCH ×4 (10:14→21:59)
[2019-04-18] MEDS: DEXAMETHASONE 4 MG TABLET PO SCH ×2 (10:14→21:59)
[2019-04-18] MEDS: DOCUSATE SODIUM 100 MG CAPSULE PO SCH ×2 (10:14→18:14)
[2019-04-18] MEDS: DRONABINOL 2.5 MG CAPSULE PO SCH ×3 (10:14→15:21)
[2019-04-18] MEDS: MORPHINE SULFATE 10 MG/5 ML ORAL SOLUTION UDCUP PO PRN (15:21)
[2019-04-18] MEDS ORDERED: BISACODYL 10 MG SUPP.RECT PR ONE (15:30)
[2019-04-18] MEDS ORDERED: POLYETHYLENE GLYCOL 3350 POWDER 17 GM/1 PACKET PO ONE (15:30)
--- NOTE | 2019-04-18 16:26 | PDOC PROGRESS REPORT ---
Subjective Progress Note for:: 04/18/19 Subjective:: Continue with hospice care. Patient today denies any pain but is noted by staff to be often moaning suggestive of pain. Denies any shortness of breath at this time. Reason For Visit: APRIL, HYPERCALCEMIA, METASTATIC DISEASE Physical Exam Vital Signs: Temp Pulse Resp BP Pulse Ox 97.3 F 77 16 146/65 H 98 04/18/19 12:30 04/18/19 12:30 04/18/19 12:30 04/18/19 12:30 04/18/19 12:30 Intake & Output 04/17/19 04/18/19 04/19/19 06:59 06:59 06:59 Intake Total 460 Output Total Balance 460 Weight 59 kg General appearance: PRESENT: no acute distress, cooperative Neck exam: ABSENT: JVD GI/Abdominal exam: PRESENT: soft. ABSENT: tenderness Neurological exam: PRESENT: alert, awake, oriented to person. ABSENT: oriented to place, oriented to time Results Laboratory Results: 04/13/19 07:14 04/17/19 04:26 04/16/19 03:30 Clean Catch Midstream Urine Culture - Final Mixed Urogenital Shirlene Impressions: Renal Ultrasound 04/06/19 00:00 IMPRESSION: 1. No abnormality of the kidneys. 2. Wells catheter within the urinary bladder. 3. Cholelithiasis without other associated ancillary findings to indicate an acute cholecystitis. Lumbar Spine CT 04/06/19 13:16 IMPRESSION: Multiple lytic lesions throughout the lumbar spine with a large expansile lesion in the left L3 transverse process. Findings are most consistent with metastatic disease. Does the patient have a known primary? Femur X-Ray 04/06/19 13:17 IMPRESSION: Lytic lesion in the mid left femur suspicious for primary neoplasm or metastatic disease. Chest X-Ray 04/06/19 16:13 IMPRESSION: NO ACUTE RADIOGRAPHIC FINDING IN THE CHEST. Skeletal Survey 04/07/19 17:43 IMPRESSION: 1. Lytic lesions in the left humerus, lumbar spine and left femur. 2. Acute nondisplaced fracture of the right posterior-lateral 7th rib. Chest CT 04/12/19 00:00 IMPRESSION: 1. Known bone lesions. Suggestive of osseous metastases. Present diffusely. 2. Primary may be pulmonary, in the left lower lobe. There is low-density masslike abnormal opacity in the apex extending to abut the hilum with probable associated mediastinal and hilar adenopathy. 3. Indeterminate liver lesion. Indeterminate left adrenal mass. Findings are considered suspicious for metastasis, however. 4. Infrarenal abdominal aortic aneurysm. 5. Cholelithiasis. AAA Size: Follow-up Recommendation 3.0-3.4 cm Every 3 years *Based upon the Society for Vascular Surgery Guidelines: J Vasc Surg. 2009 Nov;50(4 Suppl):S2-49 *For aortas of maximum diameter of 2.6-2.9 cm meeting the criteria for AAA (?1.5 x proximal normal segment) Abdomen/Pelvis CT 04/12/19 09:17 IMPRESSION: 1. Known bone lesions. Suggestive of osseous metastases. Present diffusely. 2. Primary may be pulmonary, in the left lower lobe. There is low-density masslike abnormal opacity in the apex extending to abut the hilum with probable associated mediastinal and hilar adenopathy. 3. Indeterminate liver lesion. Indeterminate left adrenal mass. Findings are considered suspicious for metastasis, however. 4. Infrarenal abdominal aortic aneurysm. 5. Cholelithiasis. AAA Size: Follow-up Recommendation 3.0-3.4 cm Every 3 years *Based upon the Society for Vascular Surgery Guidelines: J Vasc Surg. 2008;50(4 Suppl):S2-49 *For aortas of maximum diameter of 2.6-2.9 cm meeting the criteria for AAA (?1.5 x proximal normal segment) Head MRI 04/13/19 00:00 IMPRESSION: 1. Supratentorial ring-enhancing tiny metastatic lesions, left temporal and right frontal lobes. 2. Solitary right inferior cerebellar ring-enhancing metastatic lesion. EVIDENCE OF ACUTE STROKE: NO. Assessment and Plan - Diagnosis (1) Brain metastasis Is this a current diagnosis for this admission?: Yes (2) APRIL (acute kidney injury) Is this a current diagnosis for this admission?: Yes (3) Anemia Qualifiers: Other causes of anemia: chronic disease, neoplastic Is this a current diagnosis for this admission?: Yes (4) Anorexia Is this a current diagnosis for this admission?: Yes (5) Cancer of lower lobe of lung Qualifiers: Laterality: left Qualified Code(s): C34.32 - Malignant neoplasm of lower lobe, left bronchus or lung Is this a current diagnosis for this admission?: Yes (6) Elevated LFTs Is this a current diagnosis for this admission?: Yes (7) Hypercalcemia Is this a current diagnosis for this admission?: Yes (8) Hypertension Is this a current diagnosis for this admission?: Yes (9) Low back pain Qualifiers: Chronicity: chronic Back pain laterality: midline Sciatica presence: without sciatica Qualified Code(s): M54.5 - Low back pain; G89.29 - Other chronic pain Is this a current diagnosis for this admission?: Yes (10) Lytic bone lesion of femur Is this a current diagnosis for this admission?: Yes (11) Malignancy Is this a current diagnosis for this admission?: Yes (12) Pain, neoplasm-related Is this a current diagnosis for this admission?: Yes - Plan Summary Summary: Continue comfort care. Currently making plans for placement at hospice facility versus home hospice. Adjusted patient's aquatics and place patient on morphine to help with pain control. - Time Time Spent with patient: Less than 15 minutes
[2019-04-18] MEDS: HYDRALAZINE HCL INJ/PF 20 MG/1 ML SDV IV PRN (23:42)
[2019-04-19] MEDS: MORPHINE SULFATE 10 MG/5 ML ORAL SOLUTION UDCUP PO PRN ×3 (05:03→20:45)
[2019-04-19] MEDS: LORAZEPAM 0.5 MG TABLET PO PRN (05:04)
[2019-04-19] MEDS: DRONABINOL 2.5 MG CAPSULE PO SCH ×3 (08:12→15:51)
[2019-04-19] MEDS: ACETAMINOPHEN 325 MG TABLET PO PRN ×2 (08:19→15:53)
[2019-04-19] MEDS: DEXAMETHASONE 4 MG TABLET PO SCH ×2 (09:51→21:38)
[2019-04-19] MEDS: DOCUSATE SODIUM 100 MG CAPSULE PO SCH ×2 (09:51→17:49)
[2019-04-19] MEDS: NYSTATIN 500000 UNIT/5 ML UDCUP PO SCH ×4 (09:51→21:38)
[2019-04-19] MEDS: CARVEDILOL 12.5 MG TABLET PO SCH ×2 (09:51→21:38)
[2019-04-19] MEDS: POLYETHYLENE GLYCOL 3350 POWDER 17 GM/1 PACKET PO SCH (09:51)
--- NOTE | 2019-04-19 14:41 | PDOC PROGRESS REPORT ---
Subjective Progress Note for:: 04/19/19 Subjective:: Patient feels well today and denies any significant pain. Denies any shortness of breath or respiratory distress today. Reason For Visit: APRIL, HYPERCALCEMIA, METASTATIC DISEASE Physical Exam Vital Signs: Temp Pulse Resp BP Pulse Ox 97.9 F 65 17 137/58 H 98 04/19/19 12:06 04/19/19 12:06 04/19/19 12:06 04/19/19 12:06 04/19/19 12:06 Intake & Output 04/18/19 04/19/19 04/20/19 06:59 06:59 06:59 Intake Total 460 360 30 Output Total 200 Balance 460 160 30 Weight 59 kg 57.6 kg 57.6 kg General appearance: PRESENT: no acute distress, cooperative GI/Abdominal exam: PRESENT: soft. ABSENT: rebound, rigid, tenderness Neurological exam: PRESENT: alert, awake Psychiatric exam: PRESENT: normal mood. ABSENT: agitated Focused psych exam: ABSENT: pressured speech Results Laboratory Results: 04/13/19 07:14 04/17/19 04:26 Impressions: Renal Ultrasound 04/06/19 00:00 IMPRESSION: 1. No abnormality of the kidneys. 2. Wells catheter within the urinary bladder. 3. Cholelithiasis without other associated ancillary findings to indicate an acute cholecystitis. Lumbar Spine CT 04/06/19 13:16 IMPRESSION: Multiple lytic lesions throughout the lumbar spine with a large expansile lesion in the left L3 transverse process. Findings are most consistent with metastatic disease. Does the patient have a known primary? Femur X-Ray 04/06/19 13:17 IMPRESSION: Lytic lesion in the mid left femur suspicious for primary neoplasm or metastatic disease. Chest X-Ray 04/06/19 16:13 IMPRESSION: NO ACUTE RADIOGRAPHIC FINDING IN THE CHEST. Skeletal Survey 04/07/19 17:43 IMPRESSION: 1. Lytic lesions in the left humerus, lumbar spine and left femur. 2. Acute nondisplaced fracture of the right posterior-lateral 7th rib. Chest CT 04/12/19 00:00 IMPRESSION: 1. Known bone lesions. Suggestive of osseous metastases. Present diffusely. 2. Primary may be pulmonary, in the left lower lobe. There is low-density masslike abnormal opacity in the apex extending to abut the hilum with probable associated mediastinal and hilar adenopathy. 3. Indeterminate liver lesion. Indeterminate left adrenal mass. Findings are considered suspicious for metastasis, however. 4. Infrarenal abdominal aortic aneurysm. 5. Cholelithiasis. AAA Size: Follow-up Recommendation 3.0-3.4 cm Every 3 years *Based upon the Society for Vascular Surgery Guidelines: J Vasc Surg. 2009 Nov;50(4 Suppl):S2-49 *For aortas of maximum diameter of 2.6-2.9 cm meeting the criteria for AAA (?1.5 x proximal normal segment) Abdomen/Pelvis CT 04/12/19 09:17 IMPRESSION: 1. Known bone lesions. Suggestive of osseous metastases. Present diffusely. 2. Primary may be pulmonary, in the left lower lobe. There is low-density masslike abnormal opacity in the apex extending to abut the hilum with probable associated mediastinal and hilar adenopathy. 3. Indeterminate liver lesion. Indeterminate left adrenal mass. Findings are considered suspicious for metastasis, however. 4. Infrarenal abdominal aortic aneurysm. 5. Cholelithiasis. AAA Size: Follow-up Recommendation 3.0-3.4 cm Every 3 years *Based upon the Society for Vascular Surgery Guidelines: J Vasc Surg. 2009 Nov;50(4 Suppl):S2-49 *For aortas of maximum diameter of 2.6-2.9 cm meeting the criteria for AAA (?1.5 x proximal normal segment) Head MRI 04/13/19 00:00 IMPRESSION: 1. Supratentorial ring-enhancing tiny metastatic lesions, left temporal and right frontal lobes. 2. Solitary right inferior cerebellar ring-enhancing metastatic lesion. EVIDENCE OF ACUTE STROKE: NO. Assessment and Plan - Diagnosis (1) Brain metastasis Is this a current diagnosis for this admission?: Yes (2) APRIL (acute kidney injury) Is this a current diagnosis for this admission?: Yes (3) Anemia Qualifiers: Other causes of anemia: chronic disease, neoplastic Is this a current diagnosis for this admission?: Yes (4) Anorexia Is this a current diagnosis for this admission?: Yes (5) Cancer of lower lobe of lung Qualifiers: Laterality: left Qualified Code(s): C34.32 - Malignant neoplasm of lower lobe, left bronchus or lung Is this a current diagnosis for this admission?: Yes (6) Elevated LFTs Is this a current diagnosis for this admission?: Yes (7) Hypercalcemia Is this a current diagnosis for this admission?: Yes (8) Hypertension Is this a current diagnosis for this admission?: Yes (9) Low back pain Qualifiers: Chronicity: chronic Back pain laterality: midline Sciatica presence: without sciatica Qualified Code(s): M54.5 - Low back pain; G89.29 - Other chronic pain Is this a current diagnosis for this admission?: Yes (10) Lytic bone lesion of femur Is this a current diagnosis for this admission?: Yes (11) Malignancy Is this a current diagnosis for this admission?: Yes (12) Pain, neoplasm-related Is this a current diagnosis for this admission?: Yes - Plan Summary Summary: Continue comfort care. Currently making plans for placement at hospice facility versus home hospice. Adjusted patient's aquatics and place patient on morphine to help with pain control. 04/19/2019-continue comfort care measures. Awaiting placement at facility for hospice. Continue narcotics for pain control. Continue Ativan for anxiety. Bowel regimen. - Time Time Spent with patient: Less than 15 minutes
[2019-04-20] MEDS: MORPHINE SULFATE 10 MG/5 ML ORAL SOLUTION UDCUP PO PRN ×4 (00:43→19:52)
[2019-04-20] MEDS: HYDRALAZINE HCL INJ/PF 20 MG/1 ML SDV IV PRN ×2 (00:43→20:39)
[2019-04-20] MEDS: DRONABINOL 2.5 MG CAPSULE PO SCH ×3 (07:41→15:47)
[2019-04-20] MEDS: DEXAMETHASONE 4 MG TABLET PO SCH ×2 (10:30→21:01)
[2019-04-20] MEDS: POLYETHYLENE GLYCOL 3350 POWDER 17 GM/1 PACKET PO SCH (10:30)
[2019-04-20] MEDS: DOCUSATE SODIUM 100 MG CAPSULE PO SCH ×2 (10:30→17:45)
[2019-04-20] MEDS: NYSTATIN 500000 UNIT/5 ML UDCUP PO SCH ×4 (10:30→21:01)
[2019-04-20] MEDS: CARVEDILOL 12.5 MG TABLET PO SCH ×2 (10:30→21:01)
[2019-04-20] MEDS: FENTANYL 75 MCG/HR PATCH.TD72 TD SCH (10:38)
[2019-04-20] MEDS: LORAZEPAM 0.5 MG TABLET PO PRN (15:51)
--- NOTE | 2019-04-20 15:57 | PDOC PROGRESS REPORT ---
Subjective Progress Note for:: 04/20/19 Subjective:: Patient states that her pain is well improved with pain medications. Looks comfortable today. Denies any shortness of breath. Reason For Visit: APRIL, HYPERCALCEMIA, METASTATIC DISEASE Physical Exam Vital Signs: Temp Pulse Resp BP Pulse Ox 97.6 F 77 16 121/62 98 04/20/19 11:39 04/20/19 11:39 04/20/19 11:39 04/20/19 11:39 04/20/19 11:39 Intake & Output 04/19/19 04/20/19 04/21/19 06:59 06:59 06:59 Intake Total 360 280 240 Output Total 200 Balance 160 280 240 Weight 57.6 kg 58.1 kg General appearance: PRESENT: no acute distress, cooperative Respiratory exam: PRESENT: unlabored. ABSENT: accessory muscle use, tachypnea Neurological exam: PRESENT: alert, awake, oriented to person, oriented to place, oriented to time Psychiatric exam: ABSENT: agitated, anxious Focused psych exam: ABSENT: pressured speech Results Laboratory Results: 04/13/19 07:14 04/17/19 04:26 Impressions: Renal Ultrasound 04/06/19 00:00 IMPRESSION: 1. No abnormality of the kidneys. 2. Wells catheter within the urinary bladder. 3. Cholelithiasis without other associated ancillary findings to indicate an acute cholecystitis. Lumbar Spine CT 04/06/19 13:16 IMPRESSION: Multiple lytic lesions throughout the lumbar spine with a large expansile lesion in the left L3 transverse process. Findings are most consistent with metastatic disease. Does the patient have a known primary? Femur X-Ray 04/06/19 13:17 IMPRESSION: Lytic lesion in the mid left femur suspicious for primary neoplasm or metastatic disease. Chest X-Ray 04/06/19 16:13 IMPRESSION: NO ACUTE RADIOGRAPHIC FINDING IN THE CHEST. Skeletal Survey 04/07/19 17:43 IMPRESSION: 1. Lytic lesions in the left humerus, lumbar spine and left femur. 2. Acute nondisplaced fracture of the right posterior-lateral 7th rib. Chest CT 04/12/19 00:00 IMPRESSION: 1. Known bone lesions. Suggestive of osseous metastases. Present diffusely. 2. Primary may be pulmonary, in the left lower lobe. There is low-density masslike abnormal opacity in the apex extending to abut the hilum with probable associated mediastinal and hilar adenopathy. 3. Indeterminate liver lesion. Indeterminate left adrenal mass. Findings are considered suspicious for metastasis, however. 4. Infrarenal abdominal aortic aneurysm. 5. Cholelithiasis. AAA Size: Follow-up Recommendation 3.0-3.4 cm Every 3 years *Based upon the Society for Vascular Surgery Guidelines: J Vasc Surg. 2009 Oct;50(4 Suppl):S2-49 *For aortas of maximum diameter of 2.6-2.9 cm meeting the criteria for AAA (?1.5 x proximal normal segment) Abdomen/Pelvis CT 04/12/19 09:17 IMPRESSION: 1. Known bone lesions. Suggestive of osseous metastases. Present diffusely. 2. Primary may be pulmonary, in the left lower lobe. There is low-density masslike abnormal opacity in the apex extending to abut the hilum with probable associated mediastinal and hilar adenopathy. 3. Indeterminate liver lesion. Indeterminate left adrenal mass. Findings are considered suspicious for metastasis, however. 4. Infrarenal abdominal aortic aneurysm. 5. Cholelithiasis. AAA Size: Follow-up Recommendation 3.0-3.4 cm Every 3 years *Based upon the Society for Vascular Surgery Guidelines: J Vasc Surg. 2009 Oct;50(4 Suppl):S2-49 *For aortas of maximum diameter of 2.6-2.9 cm meeting the criteria for AAA (?1.5 x proximal normal segment) Head MRI 04/13/19 00:00 IMPRESSION: 1. Supratentorial ring-enhancing tiny metastatic lesions, left temporal and right frontal lobes. 2. Solitary right inferior cerebellar ring-enhancing metastatic lesion. EVIDENCE OF ACUTE STROKE: NO. Assessment and Plan - Diagnosis (1) Brain metastasis Is this a current diagnosis for this admission?: Yes (2) APRIL (acute kidney injury) Is this a current diagnosis for this admission?: Yes (3) Anemia Qualifiers: Other causes of anemia: chronic disease, neoplastic Is this a current diagnosis for this admission?: Yes (4) Anorexia Is this a current diagnosis for this admission?: Yes (5) Cancer of lower lobe of lung Qualifiers: Laterality: left Qualified Code(s): C34.32 - Malignant neoplasm of lower lobe, left bronchus or lung Is this a current diagnosis for this admission?: Yes (6) Elevated LFTs Is this a current diagnosis for this admission?: Yes (7) Hypercalcemia Is this a current diagnosis for this admission?: Yes (8) Hypertension Is this a current diagnosis for this admission?: Yes (9) Low back pain Qualifiers: Chronicity: chronic Back pain laterality: midline Sciatica presence: without sciatica Qualified Code(s): M54.5 - Low back pain; G89.29 - Other chronic pain Is this a current diagnosis for this admission?: Yes (10) Lytic bone lesion of femur Is this a current diagnosis for this admission?: Yes (11) Malignancy Is this a current diagnosis for this admission?: Yes (12) Pain, neoplasm-related Is this a current diagnosis for this admission?: Yes - Plan Summary Summary: Continue comfort care. Currently making plans for placement at hospice facility versus home hospice. Adjusted patient's aquatics and place patient on morphine to help with pain control. 04/19/2019-continue comfort care measures. Awaiting placement at facility for hospice. Continue narcotics for pain control. Continue Ativan for anxiety. Bowel regimen. 04/20/2019-patient is comfortable today in no distress. Continue comfort measures and still awaiting placement at facility for hospice. Continue narcotics for pain control with adequate bowel regimen. Ativan as needed for anxiety. Discharge planning working on placement. - Time Time Spent with patient: Less than 15 minutes
[2019-04-21] MEDS: MORPHINE SULFATE 10 MG/5 ML ORAL SOLUTION UDCUP PO PRN ×4 (01:46→21:52)
[2019-04-21] MEDS: OXYCODONE-ACETAMINOPHEN 5-325 MG TABLET PO PRN ×2 (06:57→15:44)
[2019-04-21] MEDS: DRONABINOL 2.5 MG CAPSULE PO SCH ×3 (07:33→17:59)
--- NOTE | 2019-04-21 07:33 | PDOC PROGRESS REPORT ---
Subjective Progress Note for:: 04/21/19 Subjective:: Patient states that she is having pain in her left side. She denies nausea or dyspnea. She believes her mental status is improving and denies being confused. Reason For Visit: APRIL, HYPERCALCEMIA, METASTATIC DISEASE Physical Exam Vital Signs: Temp Pulse Resp BP Pulse Ox 97.8 F 80 18 142/70 H 98 04/21/19 07:29 04/21/19 07:29 04/21/19 07:29 04/21/19 07:29 04/21/19 07:29 Intake & Output 04/20/19 04/21/19 04/22/19 06:59 06:59 06:59 Intake Total 280 240 Balance 280 240 Weight 58.1 kg 60.9 kg General appearance: PRESENT: no acute distress Head exam: PRESENT: normocephalic Respiratory exam: PRESENT: unlabored Neurological exam: PRESENT: alert, awake Psychiatric exam: PRESENT: appropriate affect Skin exam: PRESENT: normal color Results Laboratory Results: 04/13/19 07:14 04/17/19 04:26 Impressions: Renal Ultrasound 04/06/19 00:00 IMPRESSION: 1. No abnormality of the kidneys. 2. Wells catheter within the urinary bladder. 3. Cholelithiasis without other associated ancillary findings to indicate an acute cholecystitis. Lumbar Spine CT 04/06/19 13:16 IMPRESSION: Multiple lytic lesions throughout the lumbar spine with a large expansile lesion in the left L3 transverse process. Findings are most consistent with metastatic disease. Does the patient have a known primary? Femur X-Ray 04/06/19 13:17 IMPRESSION: Lytic lesion in the mid left femur suspicious for primary neoplasm or metastatic disease. Chest X-Ray 04/06/19 16:13 IMPRESSION: NO ACUTE RADIOGRAPHIC FINDING IN THE CHEST. Skeletal Survey 04/07/19 17:43 IMPRESSION: 1. Lytic lesions in the left humerus, lumbar spine and left femur. 2. Acute nondisplaced fracture of the right posterior-lateral 7th rib. Chest CT 04/12/19 00:00 IMPRESSION: 1. Known bone lesions. Suggestive of osseous metastases. Present diffusely. 2. Primary may be pulmonary, in the left lower lobe. There is low-density masslike abnormal opacity in the apex extending to abut the hilum with probable associated mediastinal and hilar adenopathy. 3. Indeterminate liver lesion. Indeterminate left adrenal mass. Findings are considered suspicious for metastasis, however. 4. Infrarenal abdominal aortic aneurysm. 5. Cholelithiasis. AAA Size: Follow-up Recommendation 3.0-3.4 cm Every 3 years *Based upon the Society for Vascular Surgery Guidelines: J Vasc Surg. 2009 Nov;50(4 Suppl):S2-49 *For aortas of maximum diameter of 2.6-2.9 cm meeting the criteria for AAA (?1.5 x proximal normal segment) Abdomen/Pelvis CT 04/12/19 09:17 IMPRESSION: 1. Known bone lesions. Suggestive of osseous metastases. Present diffusely. 2. Primary may be pulmonary, in the left lower lobe. There is low-density masslike abnormal opacity in the apex extending to abut the hilum with probable associated mediastinal and hilar adenopathy. 3. Indeterminate liver lesion. Indeterminate left adrenal mass. Findings are considered suspicious for metastasis, however. 4. Infrarenal abdominal aortic aneurysm. 5. Cholelithiasis. AAA Size: Follow-up Recommendation 3.0-3.4 cm Every 3 years *Based upon the Society for Vascular Surgery Guidelines: J Vasc Surg. 2009 Nov;50(4 Suppl):S2-49 *For aortas of maximum diameter of 2.6-2.9 cm meeting the criteria for AAA (?1.5 x proximal normal segment) Head MRI 04/13/19 00:00 IMPRESSION: 1. Supratentorial ring-enhancing tiny metastatic lesions, left temporal and right frontal lobes. 2. Solitary right inferior cerebellar ring-enhancing metastatic lesion. EVIDENCE OF ACUTE STROKE: NO. Assessment & Plan - Diagnosis (1) Hypercalcemia Is this a current diagnosis for this admission?: Yes (2) Lytic bone lesion of femur Is this a current diagnosis for this admission?: Yes (3) Low back pain Qualifiers: Chronicity: chronic Back pain laterality: midline Sciatica presence: without sciatica Qualified Code(s): M54.5 - Low back pain; G89.29 - Other chronic pain Is this a current diagnosis for this admission?: Yes (4) Anemia Qualifiers: Other causes of anemia: chronic disease, neoplastic Is this a current diagnosis for this admission?: Yes - Time Time Spent with patient: Less than 15 minutes - Plan Summary Plan Summary: Patient remains stable at the moment. She has Stage IV cancer with brain mets. I would continue Dexamethasone at current dose without changes. I do not believe she is benefitting from the Marinol and I would again stop this, as it may contribute to confusion. Awaiting placement in SNF with palliative care goals. She is a DNR.
[2019-04-21] MEDS: CARVEDILOL 12.5 MG TABLET PO SCH ×2 (10:01→21:53)
[2019-04-21] MEDS: POLYETHYLENE GLYCOL 3350 POWDER 17 GM/1 PACKET PO SCH (10:01)
[2019-04-21] MEDS: DEXAMETHASONE 4 MG TABLET PO SCH (10:01)
[2019-04-21] MEDS: NYSTATIN 500000 UNIT/5 ML UDCUP PO SCH ×4 (10:01→21:54)
[2019-04-21] MEDS: DOCUSATE SODIUM 100 MG CAPSULE PO SCH ×2 (10:01→17:59)
[2019-04-21] MEDS: LORAZEPAM 0.5 MG TABLET PO PRN ×2 (14:00→21:53)
--- NOTE | 2019-04-21 15:10 | PDOC PROGRESS REPORT ---
Subjective Progress Note for:: 04/21/19 Subjective:: Patient doing well today and has no complaints at this time Reason For Visit: APRIL, HYPERCALCEMIA, METASTATIC DISEASE Physical Exam Vital Signs: Temp Pulse Resp BP Pulse Ox 98.6 F 82 18 144/71 H 97 04/21/19 11:03 04/21/19 11:03 04/21/19 11:03 04/21/19 11:03 04/21/19 11:03 Intake & Output 04/20/19 04/21/19 04/22/19 06:59 06:59 06:59 Intake Total 280 240 30 Balance 280 240 30 Weight 58.1 kg 60.9 kg General appearance: PRESENT: no acute distress, cooperative Respiratory exam: PRESENT: unlabored. ABSENT: accessory muscle use, tachypnea Neurological exam: PRESENT: alert, awake Results Laboratory Results: 04/13/19 07:14 04/17/19 04:26 Impressions: Renal Ultrasound 04/06/19 00:00 IMPRESSION: 1. No abnormality of the kidneys. 2. Wells catheter within the urinary bladder. 3. Cholelithiasis without other associated ancillary findings to indicate an acute cholecystitis. Lumbar Spine CT 04/06/19 13:16 IMPRESSION: Multiple lytic lesions throughout the lumbar spine with a large expansile lesion in the left L3 transverse process. Findings are most consistent with metastatic disease. Does the patient have a known primary? Femur X-Ray 04/06/19 13:17 IMPRESSION: Lytic lesion in the mid left femur suspicious for primary neoplasm or metastatic disease. Chest X-Ray 04/06/19 16:13 IMPRESSION: NO ACUTE RADIOGRAPHIC FINDING IN THE CHEST. Skeletal Survey 04/07/19 17:43 IMPRESSION: 1. Lytic lesions in the left humerus, lumbar spine and left femur. 2. Acute nondisplaced fracture of the right posterior-lateral 7th rib. Chest CT 04/12/19 00:00 IMPRESSION: 1. Known bone lesions. Suggestive of osseous metastases. Present diffusely. 2. Primary may be pulmonary, in the left lower lobe. There is low-density masslike abnormal opacity in the apex extending to abut the hilum with probable associated mediastinal and hilar adenopathy. 3. Indeterminate liver lesion. Indeterminate left adrenal mass. Findings are considered suspicious for metastasis, however. 4. Infrarenal abdominal aortic aneurysm. 5. Cholelithiasis. AAA Size: Follow-up Recommendation 3.0-3.4 cm Every 3 years *Based upon the Society for Vascular Surgery Guidelines: J Vasc Surg. 2009 Nov;50(4 Suppl):S2-49 *For aortas of maximum diameter of 2.6-2.9 cm meeting the criteria for AAA (?1.5 x proximal normal segment) Abdomen/Pelvis CT 04/12/19 09:17 IMPRESSION: 1. Known bone lesions. Suggestive of osseous metastases. Present diffusely. 2. Primary may be pulmonary, in the left lower lobe. There is low-density masslike abnormal opacity in the apex extending to abut the hilum with probable associated mediastinal and hilar adenopathy. 3. Indeterminate liver lesion. Indeterminate left adrenal mass. Findings are considered suspicious for metastasis, however. 4. Infrarenal abdominal aortic aneurysm. 5. Cholelithiasis. AAA Size: Follow-up Recommendation 3.0-3.4 cm Every 3 years *Based upon the Society for Vascular Surgery Guidelines: J Vasc Surg. 2009 Nov;50(4 Suppl):S2-49 *For aortas of maximum diameter of 2.6-2.9 cm meeting the criteria for AAA (?1.5 x proximal normal segment) Head MRI 04/13/19 00:00 IMPRESSION: 1. Supratentorial ring-enhancing tiny metastatic lesions, left temporal and right frontal lobes. 2. Solitary right inferior cerebellar ring-enhancing metastatic lesion. EVIDENCE OF ACUTE STROKE: NO. Assessment and Plan - Diagnosis (1) Brain metastasis Is this a current diagnosis for this admission?: Yes (2) APRIL (acute kidney injury) Is this a current diagnosis for this admission?: Yes (3) Anemia Qualifiers: Other causes of anemia: chronic disease, neoplastic Is this a current diagnosis for this admission?: Yes (4) Anorexia Is this a current diagnosis for this admission?: Yes (5) Cancer of lower lobe of lung Qualifiers: Laterality: left Qualified Code(s): C34.32 - Malignant neoplasm of lower lobe, left bronchus or lung Is this a current diagnosis for this admission?: Yes (6) Elevated LFTs Is this a current diagnosis for this admission?: Yes (7) Hypercalcemia Is this a current diagnosis for this admission?: Yes (8) Hypertension Is this a current diagnosis for this admission?: Yes (9) Low back pain Qualifiers: Chronicity: chronic Back pain laterality: midline Sciatica presence: without sciatica Qualified Code(s): M54.5 - Low back pain; G89.29 - Other chronic pain Is this a current diagnosis for this admission?: Yes (10) Lytic bone lesion of femur Is this a current diagnosis for this admission?: Yes (11) Malignancy Is this a current diagnosis for this admission?: Yes (12) Pain, neoplasm-related Is this a current diagnosis for this admission?: Yes - Plan Summary Summary: Continue comfort care. Currently making plans for placement at hospice facility versus home hospice. Adjusted patient's aquatics and place patient on morphine to help with pain control. 04/19/2019-continue comfort care measures. Awaiting placement at facility for hospice. Continue narcotics for pain control. Continue Ativan for anxiety. Bowel regimen. 04/20/2019-patient is comfortable today in no distress. Continue comfort measures and still awaiting placement at facility for hospice. Continue narcotics for pain control with adequate bowel regimen. Ativan as needed for anxiety. Discharge planning working on placement. 04/21/2019-no changes in current plan for comfort care. Still awaiting SNF placement. Continue current medical management. - Time Time Spent with patient: Less than 15 minutes
[2019-04-22] MEDS: OXYCODONE-ACETAMINOPHEN 5-325 MG TABLET PO PRN ×2 (00:16→06:42)
[2019-04-22] MEDS: HYDRALAZINE HCL INJ/PF 20 MG/1 ML SDV IV PRN (00:17)
[2019-04-22] MEDS: MORPHINE SULFATE 10 MG/5 ML ORAL SOLUTION UDCUP PO PRN ×4 (06:20→21:09)
[2019-04-22] MEDS: LORAZEPAM 0.5 MG TABLET PO PRN (06:21)
[2019-04-22] MEDS: DRONABINOL 2.5 MG CAPSULE PO SCH ×3 (08:30→15:37)
[2019-04-22] MEDS: POLYETHYLENE GLYCOL 3350 POWDER 17 GM/1 PACKET PO SCH (10:27)
[2019-04-22] MEDS: NYSTATIN 500000 UNIT/5 ML UDCUP PO SCH ×4 (10:28→21:09)
[2019-04-22] MEDS: CARVEDILOL 12.5 MG TABLET PO SCH ×2 (10:28→21:09)
[2019-04-22] MEDS: DEXAMETHASONE 4 MG TABLET PO SCH ×2 (10:28→21:10)
[2019-04-22] MEDS: DOCUSATE SODIUM 100 MG CAPSULE PO SCH ×2 (10:29→17:50)
--- NOTE | 2019-04-22 11:52 | PDOC PROGRESS REPORT ---
Subjective Progress Note for:: 04/22/19 Subjective:: Patient doing well today and has no complaints at this time Reason For Visit: APRIL, HYPERCALCEMIA, METASTATIC DISEASE Physical Exam Vital Signs: Temp Pulse Resp BP Pulse Ox 98.6 F 88 17 147/86 H 97 04/22/19 05:51 04/22/19 05:51 04/22/19 05:51 04/22/19 05:51 04/22/19 05:51 Intake & Output 04/21/19 04/22/19 04/23/19 06:59 06:59 06:59 Intake Total 240 198 Balance 240 198 Weight 60.9 kg 60 kg General appearance: PRESENT: no acute distress, cooperative Respiratory exam: PRESENT: unlabored Neurological exam: PRESENT: alert, awake Results Laboratory Results: 04/13/19 07:14 04/17/19 04:26 Impressions: Renal Ultrasound 04/06/19 00:00 IMPRESSION: 1. No abnormality of the kidneys. 2. Wells catheter within the urinary bladder. 3. Cholelithiasis without other associated ancillary findings to indicate an acute cholecystitis. Lumbar Spine CT 04/06/19 13:16 IMPRESSION: Multiple lytic lesions throughout the lumbar spine with a large expansile lesion in the left L3 transverse process. Findings are most consistent with metastatic disease. Does the patient have a known primary? Femur X-Ray 04/06/19 13:17 IMPRESSION: Lytic lesion in the mid left femur suspicious for primary neoplasm or metastatic disease. Chest X-Ray 04/06/19 16:13 IMPRESSION: NO ACUTE RADIOGRAPHIC FINDING IN THE CHEST. Skeletal Survey 04/07/19 17:43 IMPRESSION: 1. Lytic lesions in the left humerus, lumbar spine and left femur. 2. Acute nondisplaced fracture of the right posterior-lateral 7th rib. Chest CT 04/12/19 00:00 IMPRESSION: 1. Known bone lesions. Suggestive of osseous metastases. Present diffusely. 2. Primary may be pulmonary, in the left lower lobe. There is low-density masslike abnormal opacity in the apex extending to abut the hilum with probable associated mediastinal and hilar adenopathy. 3. Indeterminate liver lesion. Indeterminate left adrenal mass. Findings are considered suspicious for metastasis, however. 4. Infrarenal abdominal aortic aneurysm. 5. Cholelithiasis. AAA Size: Follow-up Recommendation 3.0-3.4 cm Every 3 years *Based upon the Society for Vascular Surgery Guidelines: J Vasc Surg. 2008;50(4 Suppl):S2-49 *For aortas of maximum diameter of 2.6-2.9 cm meeting the criteria for AAA (?1.5 x proximal normal segment) Abdomen/Pelvis CT 04/12/19 09:17 IMPRESSION: 1. Known bone lesions. Suggestive of osseous metastases. Present diffusely. 2. Primary may be pulmonary, in the left lower lobe. There is low-density masslike abnormal opacity in the apex extending to abut the hilum with probable associated mediastinal and hilar adenopathy. 3. Indeterminate liver lesion. Indeterminate left adrenal mass. Findings are considered suspicious for metastasis, however. 4. Infrarenal abdominal aortic aneurysm. 5. Cholelithiasis. AAA Size: Follow-up Recommendation 3.0-3.4 cm Every 3 years *Based upon the Society for Vascular Surgery Guidelines: J Vasc Surg. 2008;50(4 Suppl):S2-49 *For aortas of maximum diameter of 2.6-2.9 cm meeting the criteria for AAA (?1.5 x proximal normal segment) Head MRI 04/13/19 00:00 IMPRESSION: 1. Supratentorial ring-enhancing tiny metastatic lesions, left temporal and right frontal lobes. 2. Solitary right inferior cerebellar ring-enhancing metastatic lesion. EVIDENCE OF ACUTE STROKE: NO. Assessment and Plan - Diagnosis (1) Brain metastasis Is this a current diagnosis for this admission?: Yes (2) APRIL (acute kidney injury) Is this a current diagnosis for this admission?: Yes (3) Anemia Qualifiers: Other causes of anemia: chronic disease, neoplastic Is this a current diagnosis for this admission?: Yes (4) Anorexia Is this a current diagnosis for this admission?: Yes (5) Cancer of lower lobe of lung Qualifiers: Laterality: left Qualified Code(s): C34.32 - Malignant neoplasm of lower lobe, left bronchus or lung Is this a current diagnosis for this admission?: Yes (6) Elevated LFTs Is this a current diagnosis for this admission?: Yes (7) Hypercalcemia Is this a current diagnosis for this admission?: Yes (8) Hypertension Is this a current diagnosis for this admission?: Yes (9) Low back pain Qualifiers: Chronicity: chronic Back pain laterality: midline Sciatica presence: without sciatica Qualified Code(s): M54.5 - Low back pain; G89.29 - Other chronic pain Is this a current diagnosis for this admission?: Yes (10) Lytic bone lesion of femur Is this a current diagnosis for this admission?: Yes (11) Malignancy Is this a current diagnosis for this admission?: Yes (12) Pain, neoplasm-related Is this a current diagnosis for this admission?: Yes - Plan Summary Summary: Continue comfort care. Currently making plans for placement at hospice facility versus home hospice. Adjusted patient's aquatics and place patient on morphine to help with pain control. 04/19/2019-continue comfort care measures. Awaiting placement at facility for hospice. Continue narcotics for pain control. Continue Ativan for anxiety. Bowel regimen. 04/20/2019-patient is comfortable today in no distress. Continue comfort measures and still awaiting placement at facility for hospice. Continue narcotics for pain control with adequate bowel regimen. Ativan as needed for anxiety. Discharge planning working on placement. 04/21/2019-no changes in current plan for comfort care. Still awaiting SNF placement. Continue current medical management. 04/22/2019-continue requirements plans with pain control and anxiety control for comfort care measures only. Still awaiting placement at facility for comfort care/hospice. Unfortunately, patient's family report caring for patient at home. - Time Time Spent with patient: Less than 15 minutes
[2019-04-23] MEDS: LORAZEPAM 0.5 MG TABLET PO PRN ×2 (00:31→20:28)
[2019-04-23] MEDS: OXYCODONE-ACETAMINOPHEN 5-325 MG TABLET PO PRN ×2 (00:32→05:27)
[2019-04-23] MEDS: MORPHINE SULFATE 10 MG/5 ML ORAL SOLUTION UDCUP PO PRN ×3 (04:00→20:28)
[2019-04-23] MEDS: FENTANYL 75 MCG/HR PATCH.TD72 TD SCH (09:23)
[2019-04-23] MEDS: NYSTATIN 500000 UNIT/5 ML UDCUP PO SCH ×4 (09:24→21:29)
[2019-04-23] MEDS: CARVEDILOL 12.5 MG TABLET PO SCH ×2 (09:24→21:29)
[2019-04-23] MEDS: DOCUSATE SODIUM 100 MG CAPSULE PO SCH ×2 (09:24→17:34)
[2019-04-23] MEDS: POLYETHYLENE GLYCOL 3350 POWDER 17 GM/1 PACKET PO SCH (09:24)
[2019-04-23] MEDS: DRONABINOL 2.5 MG CAPSULE PO SCH ×3 (09:24→17:34)
[2019-04-23] MEDS: DEXAMETHASONE 4 MG TABLET PO SCH ×2 (09:25→21:29)
--- NOTE | 2019-04-23 10:49 | PDOC PROGRESS REPORT ---
Subjective Progress Note for:: 04/23/19 Subjective:: Patient is comfortable no current new complaints. Reason For Visit: APRIL, HYPERCALCEMIA, METASTATIC DISEASE Physical Exam Vital Signs: Temp Pulse Resp BP Pulse Ox 97.8 F 70 18 150/78 H 99 04/23/19 08:00 04/23/19 08:00 04/23/19 08:00 04/23/19 08:00 04/23/19 08:00 Intake & Output 04/22/19 04/23/19 04/24/19 06:59 06:59 06:59 Intake Total 198 150 Balance 198 150 Weight 60 kg 60.2 kg General appearance: PRESENT: no acute distress, cooperative Respiratory exam: PRESENT: unlabored Neurological exam: PRESENT: alert, awake Results Laboratory Results: 04/13/19 07:14 04/17/19 04:26 Impressions: Renal Ultrasound 04/06/19 00:00 IMPRESSION: 1. No abnormality of the kidneys. 2. Wells catheter within the urinary bladder. 3. Cholelithiasis without other associated ancillary findings to indicate an acute cholecystitis. Lumbar Spine CT 04/06/19 13:16 IMPRESSION: Multiple lytic lesions throughout the lumbar spine with a large expansile lesion in the left L3 transverse process. Findings are most consistent with metastatic disease. Does the patient have a known primary? Femur X-Ray 04/06/19 13:17 IMPRESSION: Lytic lesion in the mid left femur suspicious for primary neoplasm or metastatic disease. Chest X-Ray 04/06/19 16:13 IMPRESSION: NO ACUTE RADIOGRAPHIC FINDING IN THE CHEST. Skeletal Survey 04/07/19 17:43 IMPRESSION: 1. Lytic lesions in the left humerus, lumbar spine and left femur. 2. Acute nondisplaced fracture of the right posterior-lateral 7th rib. Chest CT 04/12/19 00:00 IMPRESSION: 1. Known bone lesions. Suggestive of osseous metastases. Present diffusely. 2. Primary may be pulmonary, in the left lower lobe. There is low-density masslike abnormal opacity in the apex extending to abut the hilum with probable associated mediastinal and hilar adenopathy. 3. Indeterminate liver lesion. Indeterminate left adrenal mass. Findings are considered suspicious for metastasis, however. 4. Infrarenal abdominal aortic aneurysm. 5. Cholelithiasis. AAA Size: Follow-up Recommendation 3.0-3.4 cm Every 3 years____ _ *Based upon the Society for Vascular Surgery Guidelines: J Vasc Surg. 2008;50(4 Suppl):S2-49 *For aortas of maximum diameter of 2.6-2.9 cm meeting the criteria for AAA (?1.5 x proximal normal segment) Abdomen/Pelvis CT 04/12/19 09:17 IMPRESSION: 1. Known bone lesions. Suggestive of osseous metastases. Present diffusely. 2. Primary may be pulmonary, in the left lower lobe. There is low-density masslike abnormal opacity in the apex extending to abut the hilum with probable associated mediastinal and hilar adenopathy. 3. Indeterminate liver lesion. Indeterminate left adrenal mass. Findings are considered suspicious for metastasis, however. 4. Infrarenal abdominal aortic aneurysm. 5. Cholelithiasis. AAA Size: Follow-up Recommendation 3.0-3.4 cm Every 3 years___ __ *Based upon the Society for Vascular Surgery Guidelines: J Vasc Surg. 2008;50(4 Suppl):S2-49 *For aortas of maximum diameter of 2.6-2.9 cm meeting the criteria for AAA (?1.5 x proximal normal segment) Head MRI 04/13/19 00:00 IMPRESSION: 1. Supratentorial ring-enhancing tiny metastatic lesions, left temporal and right frontal lobes. 2. Solitary right inferior cerebellar ring-enhancing metastatic lesion. EVIDENCE OF ACUTE STROKE: NO. Assessment and Plan - Diagnosis (1) Brain metastasis Is this a current diagnosis for this admission?: Yes (2) APRIL (acute kidney injury) Is this a current diagnosis for this admission?: Yes (3) Anemia Qualifiers: Other causes of anemia: chronic disease, neoplastic Is this a current diagnosis for this admission?: Yes (4) Anorexia Is this a current diagnosis for this admission?: Yes (5) Cancer of lower lobe of lung Qualifiers: Laterality: left Qualified Code(s): C34.32 - Malignant neoplasm of lower lobe, left bronchus or lung Is this a current diagnosis for this admission?: Yes (6) Elevated LFTs Is this a current diagnosis for this admission?: Yes (7) Hypercalcemia Is this a current diagnosis for this admission?: Yes (8) Hypertension Is this a current diagnosis for this admission?: Yes (9) Low back pain Qualifiers: Chronicity: chronic Back pain laterality: midline Sciatica presence: without sciatica Qualified Code(s): M54.5 - Low back pain; G89.29 - Other chronic pain Is this a current diagnosis for this admission?: Yes (10) Lytic bone lesion of femur Is this a current diagnosis for this admission?: Yes (11) Malignancy Is this a current diagnosis for this admission?: Yes (12) Pain, neoplasm-related Is this a current diagnosis for this admission?: Yes - Plan Summary Summary: Continue comfort care. Currently making plans for placement at hospice facility versus home hospice. Adjusted patient's aquatics and place patient on morphine to help with pain control. 04/19/2019-continue comfort care measures. Awaiting placement at facility for hospice. Continue narcotics for pain control. Continue Ativan for anxiety. Bowel regimen. 04/20/2019-patient is comfortable today in no distress. Continue comfort measures and still awaiting placement at facility for hospice. Continue narcotics for pain control with adequate bowel regimen. Ativan as needed for anxiety. Discharge planning working on placement. 04/21/2019-no changes in current plan for comfort care. Still awaiting SNF placement. Continue current medical management. 04/22/2019-continue requirements plans with pain control and anxiety control for comfort care measures only. Still awaiting placement at facility for comfort care/hospice. Unfortunately, patient's family report caring for patient at home. 04/23/2019-continue current plans with pain control medication and anxiety medication. Comfort care measures only. Still awaiting placement to facility for comfort care/hospice. - Time Time Spent with patient: Less than 15 minutes
[2019-04-23] MEDS: ACETAMINOPHEN 325 MG TABLET PO PRN (18:54)
[2019-04-24] MEDS: MORPHINE SULFATE 10 MG/5 ML ORAL SOLUTION UDCUP PO PRN ×2 (02:47→21:56)
[2019-04-24] MEDS: LORAZEPAM 0.5 MG TABLET PO PRN ×2 (04:38→21:54)
[2019-04-24] MEDS: CARVEDILOL 12.5 MG TABLET PO SCH ×2 (09:10→21:54)
[2019-04-24] MEDS: DOCUSATE SODIUM 100 MG CAPSULE PO SCH ×2 (09:10→17:04)
[2019-04-24] MEDS: NYSTATIN 500000 UNIT/5 ML UDCUP PO SCH ×4 (09:10→21:55)
[2019-04-24] MEDS: DRONABINOL 2.5 MG CAPSULE PO SCH ×3 (09:10→17:04)
[2019-04-24] MEDS: DEXAMETHASONE 4 MG TABLET PO SCH ×2 (09:10→21:54)
[2019-04-24] MEDS: POLYETHYLENE GLYCOL 3350 POWDER 17 GM/1 PACKET PO SCH (09:10)
--- NOTE | 2019-04-24 10:42 | PDOC PROGRESS REPORT ---
Subjective Progress Note for:: 04/24/19 Subjective:: Patient has no complaints at this time Reason For Visit: APRIL, HYPERCALCEMIA, METASTATIC DISEASE Physical Exam Vital Signs: Temp Pulse Resp BP Pulse Ox 98.0 F 76 17 148/81 H 98 04/24/19 07:13 04/24/19 07:13 04/24/19 07:13 04/24/19 07:13 04/24/19 07:13 Intake & Output 04/23/19 04/24/19 04/25/19 06:59 06:59 06:59 Intake Total 150 1040 Balance 150 1040 Weight 60.2 kg 58.3 kg General appearance: PRESENT: no acute distress, cooperative Respiratory exam: PRESENT: unlabored Neurological exam: PRESENT: alert, awake Results Laboratory Results: 04/13/19 07:14 04/17/19 04:26 Impressions: Renal Ultrasound 04/06/19 00:00 IMPRESSION: 1. No abnormality of the kidneys. 2. Wells catheter within the urinary bladder. 3. Cholelithiasis without other associated ancillary findings to indicate an acute cholecystitis. Lumbar Spine CT 04/06/19 13:16 IMPRESSION: Multiple lytic lesions throughout the lumbar spine with a large expansile lesion in the left L3 transverse process. Findings are most consistent with metastatic disease. Does the patient have a known primary? Femur X-Ray 04/06/19 13:17 IMPRESSION: Lytic lesion in the mid left femur suspicious for primary neoplasm or metastatic disease. Chest X-Ray 04/06/19 16:13 IMPRESSION: NO ACUTE RADIOGRAPHIC FINDING IN THE CHEST. Skeletal Survey 04/07/19 17:43 IMPRESSION: 1. Lytic lesions in the left humerus, lumbar spine and left femur. 2. Acute nondisplaced fracture of the right posterior-lateral 7th rib. Chest CT 04/12/19 00:00 IMPRESSION: 1. Known bone lesions. Suggestive of osseous metastases. Present diffusely. 2. Primary may be pulmonary, in the left lower lobe. There is low-density masslike abnormal opacity in the apex extending to abut the hilum with probable associated mediastinal and hilar adenopathy. 3. Indeterminate liver lesion. Indeterminate left adrenal mass. Findings are considered suspicious for metastasis, however. 4. Infrarenal abdominal aortic aneurysm. 5. Cholelithiasis. AAA Size: Follow-up Recommendation 3.0-3.4 cm Every 3 years *Based upon the Society for Vascular Surgery Guidelines: J Vasc Surg. 2008;50(4 Suppl):S2-49 *For aortas of maximum diameter of 2.6-2.9 cm meeting the criteria for AAA (?1.5 x proximal normal segment) Abdomen/Pelvis CT 04/12/19 09:17 IMPRESSION: 1. Known bone lesions. Suggestive of osseous metastases. Present diffusely. 2. Primary may be pulmonary, in the left lower lobe. There is low-density masslike abnormal opacity in the apex extending to abut the hilum with probable associated mediastinal and hilar adenopathy. 3. Indeterminate liver lesion. Indeterminate left adrenal mass. Findings are considered suspicious for metastasis, however. 4. Infrarenal abdominal aortic aneurysm. 5. Cholelithiasis. AAA Size: Follow-up Recommendation 3.0-3.4 cm Every 3 years *Based upon the Society for Vascular Surgery Guidelines: J Vasc Surg. 2008;50(4 Suppl):S2-49 *For aortas of maximum diameter of 2.6-2.9 cm meeting the criteria for AAA (?1.5 x proximal normal segment) Head MRI 04/13/19 00:00 IMPRESSION: 1. Supratentorial ring-enhancing tiny metastatic lesions, left temporal and right frontal lobes. 2. Solitary right inferior cerebellar ring-enhancing metastatic lesion. EVIDENCE OF ACUTE STROKE: NO. Assessment and Plan - Diagnosis (1) Brain metastasis Is this a current diagnosis for this admission?: Yes (2) APRIL (acute kidney injury) Is this a current diagnosis for this admission?: Yes (3) Anemia Qualifiers: Other causes of anemia: chronic disease, neoplastic Is this a current diagnosis for this admission?: Yes (4) Anorexia Is this a current diagnosis for this admission?: Yes (5) Cancer of lower lobe of lung Qualifiers: Laterality: left Qualified Code(s): C34.32 - Malignant neoplasm of lower lobe, left bronchus or lung Is this a current diagnosis for this admission?: Yes (6) Elevated LFTs Is this a current diagnosis for this admission?: Yes (7) Hypercalcemia Is this a current diagnosis for this admission?: Yes (8) Hypertension Is this a current diagnosis for this admission?: Yes (9) Low back pain Qualifiers: Chronicity: chronic Back pain laterality: midline Sciatica presence: without sciatica Qualified Code(s): M54.5 - Low back pain; G89.29 - Other chronic pain Is this a current diagnosis for this admission?: Yes (10) Lytic bone lesion of femur Is this a current diagnosis for this admission?: Yes (11) Malignancy Is this a current diagnosis for this admission?: Yes (12) Pain, neoplasm-related Is this a current diagnosis for this admission?: Yes - Plan Summary Summary: Continue comfort care. Currently making plans for placement at hospice facility versus home hospice. Adjusted patient's aquatics and place patient on morphine to help with pain control. 04/19/2019-continue comfort care measures. Awaiting placement at facility for hospice. Continue narcotics for pain control. Continue Ativan for anxiety. Bowel regimen. 04/20/2019-patient is comfortable today in no distress. Continue comfort measures and still awaiting placement at facility for hospice. Continue narcotics for pain control with adequate bowel regimen. Ativan as needed for anxiety. Discharge planning working on placement. 04/21/2019-no changes in current plan for comfort care. Still awaiting SNF placement. Continue current medical management. 04/22/2019-continue requirements plans with pain control and anxiety control for comfort care measures only. Still awaiting placement at facility for comfort care/hospice. Unfortunately, patient's family report caring for patient at home. 04/23/2019-continue current plans with pain control medication and anxiety medication. Comfort care measures only. Still awaiting placement to facility for comfort care/hospice. 04/24/2019-continue current plans with pain control and anxiety control. Still awaiting placement at facility for comfort care/hospice. - Time Time Spent with patient: Less than 15 minutes
[2019-04-24] MEDS: ACETAMINOPHEN 325 MG TABLET PO PRN (17:04)
[2019-04-25] MEDS: MORPHINE SULFATE 10 MG/5 ML ORAL SOLUTION UDCUP PO PRN ×4 (03:25→21:21)
[2019-04-25] MEDS: CARVEDILOL 12.5 MG TABLET PO SCH ×2 (09:35→21:20)
[2019-04-25] MEDS: POLYETHYLENE GLYCOL 3350 POWDER 17 GM/1 PACKET PO SCH (09:35)
[2019-04-25] MEDS: DEXAMETHASONE 4 MG TABLET PO SCH ×2 (09:36→21:21)
[2019-04-25] MEDS: DOCUSATE SODIUM 100 MG CAPSULE PO SCH ×2 (09:36→18:02)
[2019-04-25] MEDS: DRONABINOL 2.5 MG CAPSULE PO SCH ×2 (09:36→11:30)
--- NOTE | 2019-04-25 13:50 | PDOC PROGRESS REPORT ---
Subjective Progress Note for:: 04/25/19 Subjective:: Patient complains of some knee pain today. Reason For Visit: APRIL, HYPERCALCEMIA, METASTATIC DISEASE Physical Exam Vital Signs: Temp Pulse Resp BP Pulse Ox 98.0 F 67 18 160/83 H 97 04/25/19 11:47 04/25/19 11:47 04/25/19 11:47 04/25/19 11:47 04/25/19 11:47 Intake & Output 04/24/19 04/25/19 04/26/19 06:59 06:59 06:59 Intake Total 1040 440 Balance 1040 440 Weight 58.3 kg 56.8 kg General appearance: PRESENT: no acute distress, cooperative Respiratory exam: PRESENT: unlabored Neurological exam: PRESENT: alert, awake Results Laboratory Results: 04/13/19 07:14 04/17/19 04:26 Impressions: Renal Ultrasound 04/06/19 00:00 IMPRESSION: 1. No abnormality of the kidneys. 2. Wells catheter within the urinary bladder. 3. Cholelithiasis without other associated ancillary findings to indicate an a cute cholecystitis. Lumbar Spine CT 04/06/19 13:16 IMPRESSION: Multiple lytic lesions throughout the lumbar spine with a large expansile lesion in the left L3 transverse process. Findings are most consistent with metastatic disease. Does the patient have a known primary? Femur X-Ray 04/06/19 13:17 IMPRESSION: Lytic lesion in the mid left femur suspicious for primary neoplasm or metastatic disease. Chest X-Ray 04/06/19 16:13 IMPRESSION: NO ACUTE RADIOGRAPHIC FINDING IN THE CHEST. Skeletal Survey 04/07/19 17:43 IMPRESSION: 1. Lytic lesions in the left humerus, lumbar spine and left femur. 2. Acute nondisplaced fracture of the right posterior-lateral 7th rib. Chest CT 04/12/19 00:00 IMPRESSION: 1. Known bone lesions. Suggestive of osseous metastases. Present diffusely. 2. Primary may be pulmonary, in the left lower lobe. There is low-density masslike abnormal opacity in the apex extending to abut the hilum with probable associated mediastinal and hilar adenopathy. 3. Indeterminate liver lesion. Indeterminate left adrenal mass. Findings are considered suspicious for metastasis, however. 4. Infrarenal abdominal aortic aneurysm. 5. Cholelithiasis. AAA Size: Follow-up Recommendation 3.0-3.4 cm Every 3 years *Based upon the Society for Vascular Surgery Guidelines: J Vasc Surg. 2008;50(4 Suppl):S2-49 *For aortas of maximum diameter of 2.6-2.9 cm meeting the criteria for AAA (?1.5 x proximal normal segment) Abdomen/Pelvis CT 04/12/19 09:17 IMPRESSION: 1. Known bone lesions. Suggestive of osseous metastases. Present diffusely. 2. Primary may be pulmonary, in the left lower lobe. There is low-density masslike abnormal opacity in the apex extending to abut the hilum with probable associated mediastinal and hilar adenopathy. 3. Indeterminate liver lesion. Indeterminate left adrenal mass. Findings are considered suspicious for metastasis, however. 4. Infrarenal abdominal aortic aneurysm. 5. Cholelithiasis. AAA Size: Follow-up Recommendation 3.0-3.4 cm Every 3 years *Based upon the Society for Vascular Surgery Guidelines: J Vasc Surg. 2008;50(4 Suppl):S2-49 *For aortas of maximum diameter of 2.6-2.9 cm meeting the criteria for AAA (?1.5 x proximal normal segment) Head MRI 04/13/19 00:00 IMPRESSION: 1. Supratentorial ring-enhancing tiny metastatic lesions, left temporal and right frontal lobes. 2. Solitary right inferior cerebellar ring-enhancing metastatic lesion. EVIDENCE OF ACUTE STROKE: NO. Assessment and Plan - Diagnosis (1) Brain metastasis Is this a current diagnosis for this admission?: Yes (2) APRIL (acute kidney injury) Is this a current diagnosis for this admission?: Yes (3) Anemia Qualifiers: Other causes of anemia: chronic disease, neoplastic Is this a current diagnosis for this admission?: Yes (4) Anorexia Is this a current diagnosis for this admission?: Yes (5) Cancer of lower lobe of lung Qualifiers: Laterality: left Qualified Code(s): C34.32 - Malignant neoplasm of lower lobe, left bronchus or lung Is this a current diagnosis for this admission?: Yes (6) Elevated LFTs Is this a current diagnosis for this admission?: Yes (7) Hypercalcemia Is this a current diagnosis for this admission?: Yes (8) Hypertension Is this a current diagnosis for this admission?: Yes (9) Low back pain Qualifiers: Chronicity: chronic Back pain laterality: midline Sciatica presence: without sciatica Qualified Code(s): M54.5 - Low back pain; G89.29 - Other chronic pain Is this a current diagnosis for this admission?: Yes (10) Lytic bone lesion of femur Is this a current diagnosis for this admission?: Yes (11) Malignancy Is this a current diagnosis for this admission?: Yes (12) Pain, neoplasm-related Is this a current diagnosis for this admission?: Yes - Plan Summary Summary: Continue comfort care. Currently making plans for placement at hospice facility versus home hospice. Adjusted patient's aquatics and place patient on morphine to help with pain control. 04/19/2019-continue comfort care measures. Awaiting placement at facility for hospice. Continue narcotics for pain control. Continue Ativan for anxiety. Bowel regimen. 04/20/2019-patient is comfortable today in no distress. Continue comfort measures and still awaiting placement at facility for hospice. Continue narcotics for pain control with adequate bowel regimen. Ativan as needed for anxiety. Discharge planning working on placement. 04/21/2019-no changes in current plan for comfort care. Still awaiting SNF placement. Continue current medical management. 04/22/2019-continue requirements plans with pain control and anxiety control for comfort care measures only. Still awaiting placement at facility for comfort care/hospice. Unfortunately, patient's family report caring for patient at home. 04/23/2019-continue current plans with pain control medication and anxiety medication. Comfort care measures only. Still awaiting placement to facility for comfort care/hospice. 04/24/2019-continue current plans with pain control and anxiety control. Still awaiting placement at facility for comfort care/hospice. 04/25/2019-continue current plans with pain control and anxiety control. Still awaiting placement at facility for comfort care/hospice. Currently liaison planner awaiting assessment to see if patient qualifies for [facility]. - Time Time Spent with patient: Less than 15 minutes
[2019-04-26] MEDS: MORPHINE SULFATE 10 MG/5 ML ORAL SOLUTION UDCUP PO PRN ×2 (05:10→10:35)
--- NOTE | 2019-04-26 08:22 | PDOC PROGRESS REPORT ---
Subjective Progress Note for:: 04/26/19 Subjective:: Due to COVID-19 restrictions, I did not see patient today, but I did review the medical records as well as speak with her nurse, Eric environmental planner, and Dr. Joyner, Hospitalist. I was not able to speak with family, as they are currently speaking with discharge planners. Patient remains medically stable. She is on Dexamethasone for her brain mets and her pain appears to be well managed with current medications. She has been denies placement in alf facility with [facility] care. I still believe that the family and the patient would do best at home with Hospice services. Although family has been reluctant to take her home, I believe that with Hospice help, this should be very manageable. I am happy to help arrange a telephone conference call to help answer any questions about how they will be able to care for her at home. Reason For Visit: APRIL, HYPERCALCEMIA, METASTATIC DISEASE Physical Exam Vital Signs: Temp Pulse Resp BP Pulse Ox 98.2 F 69 18 142/81 H 100 04/25/19 19:38 04/25/19 19:38 04/25/19 19:38 04/25/19 19:38 04/25/19 19:38 Intake & Output 04/25/19 04/26/19 04/27/19 06:59 06:59 06:59 Intake Total 440 50 Balance 440 50 Weight 56.8 kg 51.7 kg Results Laboratory Results: 04/13/19 07:14 04/17/19 04:26 Impressions: Renal Ultrasound 04/06/19 00:00 IMPRESSION: 1. No abnormality of the kidneys. 2. Wells catheter within the urinary bladder. 3. Cholelithiasis without other associated ancillary findings to indicate an acute cholecystitis. Lumbar Spine CT 04/06/19 13:16 IMPRESSION: Multiple lytic lesions throughout the lumbar spine with a large expansile lesion in the left L3 transverse process. Findings are most consistent with metastatic disease. Does the patient have a known primary? Femur X-Ray 04/06/19 13:17 IMPRESSION: Lytic lesion in the mid left femur suspicious for primary neoplasm or metastatic disease. Chest X-Ray 04/06/19 16:13 IMPRESSION: NO ACUTE RADIOGRAPHIC FINDING IN THE CHEST. Skeletal Survey 04/07/19 17:43 IMPRESSION: 1. Lytic lesions in the left humerus, lumbar spine and left femur. 2. Acute nondisplaced fracture of the right posterior-lateral 7th rib. Chest CT 04/12/19 00:00 IMPRESSION: 1. Known bone lesions. Suggestive of osseous metastases. Present diffusely. 2. Primary may be pulmonary, in the left lower lobe. There is low-density masslike abnormal opacity in the apex extending to abut the hilum with probable associated mediastinal and hilar adenopathy. 3. Indeterminate liver lesion. Indeterminate left adrenal mass. Findings are considered suspicious for metastasis, however. 4. Infrarenal abdominal aortic aneurysm. 5. Cholelithiasis. AAA Size: Follow-up Recommendation 3.0-3.4 cm Every 3 years *Based upon the Society for Vascular Surgery Guidelines: J Vasc Surg. 2009 Nov;50(4 Suppl):S2-49 *For aortas of maximum diameter of 2.6-2.9 cm meeting the criteria for AAA (?1.5 x proximal normal segment) Abdomen/Pelvis CT 04/12/19 09:17 IMPRESSION: 1. Known bone lesions. Suggestive of osseous metastases. Present diffusely. 2. Primary may be pulmonary, in the left lower lobe. There is low-density masslike abnormal opacity in the apex extending to abut the hilum with probable associated mediastinal and hilar adenopathy. 3. Indeterminate liver lesion. Indeterminate left adrenal mass. Findings are considered suspicious for metastasis, however. 4. Infrarenal abdominal aortic aneurysm. 5. Cholelithiasis. AAA Size: Follow-up Recommendation 3.0-3.4 cm Every 3 years *Based upon the Society for Vascular Surgery Guidelines: J Vasc Surg. 2009 Oct;50(4 Suppl):S2-49 *For aortas of maximum diameter of 2.6-2.9 cm meeting the criteria for AAA (?1.5 x proximal normal segment) Head MRI 04/13/19 00:00 IMPRESSION: 1. Supratentorial ring-enhancing tiny metastatic lesions, left temporal and right frontal lobes. 2. Solitary right inferior cerebellar ring-enhancing metastatic lesion. EVIDENCE OF ACUTE STROKE: NO. Assessment & Plan - Diagnosis (1) Hypercalcemia Is this a current diagnosis for this admission?: Yes (2) Lytic bone lesion of femur Is this a current diagnosis for this admission?: Yes (3) Low back pain Qualifiers: Chronicity: chronic Back pain laterality: midline Sciatica presence: without sciatica Qualified Code(s): M54.5 - Low back pain; G89.29 - Other chronic pain Is this a current diagnosis for this admission?: Yes (4) Anemia Qualifiers: Other causes of anemia: chronic disease, neoplastic Is this a current diagnosis for this admission?: Yes - Time Time Spent with patient: 15-24 minutes
[2019-04-26] MEDS: DEXAMETHASONE 4 MG TABLET PO SCH ×2 (10:34→21:35)
[2019-04-26] MEDS: CARVEDILOL 12.5 MG TABLET PO SCH ×2 (10:34→21:35)
[2019-04-26] MEDS: FENTANYL 75 MCG/HR PATCH.TD72 TD SCH (10:35)
[2019-04-26] MEDS: POLYETHYLENE GLYCOL 3350 POWDER 17 GM/1 PACKET PO SCH (10:35)
[2019-04-26] MEDS: DOCUSATE SODIUM 100 MG CAPSULE PO SCH ×2 (10:35→17:38)
[2019-04-26] MEDS: ONDANSETRON HCL INJ/PF 4 MG/2 ML SDV IV PRN (11:45)
--- NOTE | 2019-04-26 14:14 | PDOC PROGRESS REPORT ---
Subjective Progress Note for:: 04/26/19 Subjective:: Patient has no complaints today. Feels well. Okay with me discussing the case with her son. Reason For Visit: APRIL, HYPERCALCEMIA, METASTATIC DISEASE Physical Exam Vital Signs: Temp Pulse Resp BP Pulse Ox 97.7 F 68 17 141/69 H 100 04/26/19 11:04 04/26/19 11:04 04/26/19 11:04 04/26/19 11:04 04/26/19 11:04 Intake & Output 04/25/19 04/26/19 04/27/19 06:59 06:59 06:59 Intake Total 440 50 118 Balance 440 50 118 Weight 56.8 kg 51.7 kg General appearance: PRESENT: no acute distress, cooperative Respiratory exam: PRESENT: unlabored Results Laboratory Results: 04/13/19 07:14 04/17/19 04:26 Impressions: Renal Ultrasound 04/06/19 00:00 IMPRESSION: 1. No abnormality of the kidneys. 2. Wells catheter within the urinary bladder. 3. Cholelithiasis without other associated ancillary findings to indicate an acute cholecystitis. Lumbar Spine CT 04/06/19 13:16 IMPRESSION: Multiple lytic lesions throughout the lumbar spine with a large expansile lesion in the left L3 transverse process. Findings are most consistent with metastatic disease. Does the patient have a known primary? Femur X-Ray 04/06/19 13:17 IMPRESSION: Lytic lesion in the mid left femur suspicious for primary neoplasm or metastatic disease. Chest X-Ray 04/06/19 16:13 IMPRESSION: NO ACUTE RADIOGRAPHIC FINDING IN THE CHEST. Skeletal Survey 04/07/19 17:43 IMPRESSION: 1. Lytic lesions in the left humerus, lumbar spine and left femur. 2. Acute nondisplaced fracture of the right posterior-lateral 7th rib. Chest CT 04/12/19 00:00 IMPRESSION: 1. Known bone lesions. Suggestive of osseous metastases. Present diffusely. 2. Primary may be pulmonary, in the left lower lobe. There is low-density m asslike abnormal opacity in the apex extending to abut the hilum with probable associated mediastinal and hilar adenopathy. 3. Indeterminate liver lesion. Indeterminate left adrenal mass. Findings are considered suspicious for metastasis, however. 4. Infrarenal abdominal aortic aneurysm. 5. Cholelithiasis. AAA Size: Follow-up Recommendation 3.0-3.4 cm Every 3 years *Based upon the Society for Vascular Surgery Guidelines: J Vasc Surg. 2008;50(4 Suppl):S2-49 *For aortas of maximum diameter of 2.6-2.9 cm meeting the criteria for AAA (?1.5 x proximal normal segment) Abdomen/Pelvis CT 04/12/19 09:17 IMPRESSION: 1. Known bone lesions. Suggestive of osseous metastases. Present diffusely. 2. Primary may be pulmonary, in the left lower lobe. There is low-density masslike abnormal opacity in the apex extending to abut the hilum with probable associated mediastinal and hilar adenopathy. 3. Indeterminate liver lesion. Indeterminate left adrenal mass. Findings are considered suspicious for metastasis, however. 4. Infrarenal abdominal aortic aneurysm. 5. Cholelithiasis. AAA Size: Follow-up Recommendation 3.0-3.4 cm Every 3 years *Based upon the Society for Vascular Surgery Guidelines: J Vasc Surg. 2008;50(4 Suppl):S2-49 *For aortas of maximum diameter of 2.6-2.9 cm meeting the criteria for AAA (?1.5 x proximal normal segment) Head MRI 04/13/19 00:00 IMPRESSION: 1. Supratentorial ring-enhancing tiny metastatic lesions, left temporal and right frontal lobes. 2. Solitary right inferior cerebellar ring-enhancing metastatic lesion. EVIDENCE OF ACUTE STROKE: NO. Assessment and Plan - Diagnosis (1) Brain metastasis Is this a current diagnosis for this admission?: Yes (2) APRIL (acute kidney injury) Is this a current diagnosis for this admission?: Yes (3) Anemia Qualifiers: Other causes of anemia: chronic disease, neoplastic Is this a current diagnosis for this admission?: Yes (4) Anorexia Is this a current diagnosis for this admission?: Yes (5) Cancer of lower lobe of lung Qualifiers: Laterality: left Qualified Code(s): C34.32 - Malignant neoplasm of lower lobe, left bronchus or lung Is this a current diagnosis for this admission?: Yes (6) Elevated LFTs Is this a current diagnosis for this admission?: Yes (7) Hypercalcemia Is this a current diagnosis for this admission?: Yes (8) Hypertension Is this a current diagnosis for this admission?: Yes (9) Low back pain Qualifiers: Chronicity: chronic Back pain laterality: midline Sciatica presence: wi thout sciatica Qualified Code(s): M54.5 - Low back pain; G89.29 - Other c hronic pain Is this a current diagnosis for this admission?: Yes (10) Lytic bone lesion of femur Is this a current diagnosis for this admission?: Yes (11) Malignancy Is this a current diagnosis for this admission?: Yes (12) Pain, neoplasm-related Is this a current diagnosis for this admission?: Yes - Plan Summary Summary: Continue comfort care. Currently making plans for placement at hospice facility versus home hospice. Adjusted patient's aquatics and place patient on morphine to help with pain control. 04/19/2019-continue comfort care measures. Awaiting placement at facility for hospice. Continue narcotics for pain control. Continue Ativan for anxiety. Bowel regimen. 04/20/2019-patient is comfortable today in no distress. Continue comfort measures and still awaiting placement at facility for hospice. Continue narcotics for pain control with adequate bowel regimen. Ativan as needed for anxiety. Discharge planning working on placement. 04/21/2019-no changes in current plan for comfort care. Still awaiting SNF placement. Continue current medical management. 04/22/2019-continue requirements plans with pain control and anxiety control for comfort care measures only. Still awaiting placement at facility for comfort care/hospice. Unfortunately, patient's family report caring for patient at home. 04/23/2019-continue current plans with pain control medication and anxiety me dication. Comfort care measures only. Still awaiting placement to facility for comfort care/hospice. 04/24/2019-continue current plans with pain control and anxiety control. Still awaiting placement at facility for comfort care/hospice. 04/25/2019-continue current plans with pain control and anxiety control. Still awaiting placement at facility for comfort care/hospice. Currently discharge pl lyndsay awaiting assessment to see if patient qualifies for [facility]. 04/26/2019-unfortunately, patient was denied by [facility] program for inpatient hospice. I discussed with her son Atul who tells me that he is working on getting [employer] in order to be able to access patient's bank funds to use it to cover her fees. I discussed taking her home for home hospice while he continues to work on the [employer] to get her to hospice facility but Atul persistently refused stating that he does not have space for her in his home because he has only 1 bedroom, one living room and has a kid. Continue hospice care. - Time Time Spent with patient: Less than 15 minutes
[2019-04-27] MEDS: MORPHINE SULFATE 10 MG/5 ML ORAL SOLUTION UDCUP PO PRN ×3 (04:34→19:12)
[2019-04-27] MEDS: ACETAMINOPHEN 325 MG TABLET PO PRN (08:31)
[2019-04-27] MEDS: DOCUSATE SODIUM 100 MG CAPSULE PO SCH ×2 (09:14→17:21)
[2019-04-27] MEDS: DEXAMETHASONE 4 MG TABLET PO SCH ×2 (09:14→21:51)
[2019-04-27] MEDS: CARVEDILOL 12.5 MG TABLET PO SCH ×2 (09:14→21:51)
[2019-04-27] MEDS: POLYETHYLENE GLYCOL 3350 POWDER 17 GM/1 PACKET PO SCH (09:14)
--- NOTE | 2019-04-27 12:42 | PDOC PROGRESS REPORT ---
Subjective Progress Note for:: 04/27/19 Subjective:: No new complaints. Her son is at the bedside. He did acquire the power of agricultural research engineer and is now able to access finances and make arrangements for reapplication to hospice. He reports that he is in fact going to the bank today. The patient has chronic back pain but no new complaints. Reason For Visit: APRIL, HYPERCALCEMIA, METASTATIC DISEASE Physical Exam Vital Signs: Temp Pulse Resp BP Pulse Ox 97.8 F 68 14 140/80 H 95 04/27/19 08:00 04/27/19 08:00 04/27/19 08:00 04/27/19 08:00 04/27/19 08:00 Intake & Output 04/26/19 04/27/19 04/28/19 06:59 06:59 06:59 Intake Total 50 366 Balance 50 366 Weight 51.7 kg 51.7 kg General appearance: PRESENT: cooperative, mild distress, well-developed Head exam: PRESENT: atraumatic, normocephalic Eye exam: PRESENT: conjunctiva pink. ABSENT: scleral icterus Ear exam: PRESENT: normal external ear exam. ABSENT: bleeding, drainage Mouth exam: PRESENT: moist, tongue midline Respiratory exam: PRESENT: clear to auscultation cindy, symmetrical, unlabored. ABSENT: prolonged expiratory phas, rales, rhonchi, tachypnea, wheezes Cardiovascular exam: PRESENT: RRR, +S1, +S2 GI/Abdominal exam: PRESENT: normal bowel sounds, soft. ABSENT: distended, guarding, tenderness Rectal exam: PRESENT: deferred Gentrourinary exam: ABSENT: indwelling catheter Neurological exam: PRESENT: alert, awake, oriented to person, oriented to place, oriented to situation Psychiatric exam: PRESENT: flat affect. ABSENT: agitated, anxious Focused psych exam: ABSENT: delusional, restlessness Results Laboratory Results: 04/13/19 07:14 04/17/19 04:26 Impressions: Renal Ultrasound 04/06/19 00:00 IMPRESSION: 1. No abnormality of the kidneys. 2. Wells catheter within the urinary bladder. 3. Cholelithiasis without other associated ancillary findings to indicate an acute cholecystitis. Lumbar Spine CT 04/06/19 13:16 IMPRESSION: Multiple lytic lesions throughout the lumbar spine with a large expansile lesion in the left L3 transverse process. Findings are most consistent with metastatic disease. Does the patient have a known primary? Femur X-Ray 04/06/19 13:17 IMPRESSION: Lytic lesion in the mid left femur suspicious for primary neoplasm or metastatic disease. Chest X-Ray 04/06/19 16:13 IMPRESSION: NO ACUTE RADIOGRAPHIC FINDING IN THE CHEST. Skeletal Survey 04/07/19 17:43 IMPRESSION: 1. Lytic lesions in the left humerus, lumbar spine and left femur. 2. Acute nondisplaced fracture of the right posterior-lateral 7th rib. Chest CT 04/12/19 00:00 IMPRESSION: 1. Known bone lesions. Suggestive of osseous metastases. Present diffusely. 2. Primary may be pulmonary, in the left lower lobe. There is low-density masslike abnormal opacity in the apex extending to abut the hilum with probable associated mediastinal and hilar adenopathy. 3. Indeterminate liver lesion. Indeterminate left adrenal mass. Findings are considered suspicious for metastasis, however. 4. Infrarenal abdominal aortic aneurysm. 5. Cholelithiasis. AAA Size: Follow-up Recommendation 3.0-3.4 cm Every 3 years *Based upon the Society for Vascular Surgery Guidelines: J Vasc Surg. 2009 Nov;50(4 Suppl):S2-49 *For aortas of maximum diameter of 2.6-2.9 cm meeting the criteria for AAA (?1.5 x proximal normal segment) Abdomen/Pelvis CT 04/12/19 09:17 IMPRESSION: 1. Known bone lesions. Suggestive of osseous metastases. Present diffusely. 2. Primary may be pulmonary, in the left lower lobe. There is low-density masslike abnormal opacity in the apex extending to abut the hilum with probable associated mediastinal and hilar adenopathy. 3. Indeterminate liver lesion. Indeterminate left adrenal mass. Findings are considered suspicious for metastasis, however. 4. Infrarenal abdominal aortic aneurysm. 5. Cholelithiasis. AAA Size: Follow-up Recommendation 3.0-3.4 cm Every 3 years *Based upon the Society for Vascular Surgery Guidelines: J Vasc Surg. 2009 Nov;50(4 Suppl):S2-49 *For aortas of maximum diameter of 2.6-2.9 cm meeting the criteria for AAA (?1.5 x proximal normal segment) Head MRI 04/13/19 00:00 IMPRESSION: 1. Supratentorial ring-enhancing tiny metastatic lesions, left temporal and right frontal lobes. 2. Solitary right inferior cerebellar ring-enhancing metastatic lesion. EVIDENCE OF ACUTE STROKE: NO. Assessment and Plan - Diagnosis (1) Brain metastasis Is this a current diagnosis for this admission?: Yes (2) APRIL (acute kidney injury) Is this a current diagnosis for this admission?: Yes (3) Anemia Qualifiers: Other causes of anemia: chronic disease, neoplastic Is this a current diagnosis for this admission?: Yes (4) Anorexia Is this a current diagnosis for this admission?: Yes (5) Cancer of lower lobe of lung Qualifiers: Laterality: left Qualified Code(s): C34.32 - Malignant neoplasm of lower lobe, left bronchus or lung Is this a current diagnosis for this admission?: Yes (6) Elevated LFTs Is this a current diagnosis for this admission?: Yes (7) Hypercalcemia Is this a current diagnosis for this admission?: Yes (8) Hypertension Is this a current diagnosis for this admission?: Yes (9) Low back pain Qualifiers: Chronicity: chronic Back pain laterality: midline Sciatica presence: without sciatica Qualified Code(s): M54.5 - Low back pain; G89.29 - Other chronic pain Is this a current diagnosis for this admission?: Yes (10) Lytic bone lesion of femur Is this a current diagnosis for this admission?: Yes (11) Malignancy Is this a current diagnosis for this admission?: Yes (12) Pain, neoplasm-related Is this a current diagnosis for this admission?: Yes - Plan Summary Summary: Continue comfort care. Currently making plans for placement at hospice facility versus home hospice. Adjusted patient's aquatics and place patient on morphine to help with pain control. 04/19/2019-continue comfort care measures. Awaiting placement at facility for hospice. Continue narcotics for pain control. Continue Ativan for anxiety. Bowel regimen. 04/20/2019-patient is comfortable today in no distress. Continue comfort measures and still awaiting placement at facility for hospice. Continue narcotics for pain control with adequate bowel regimen. Ativan as needed for anxiety. Discharge planning working on placement. 04/21/2019-no changes in current plan for comfort care. Still awaiting SNF placement. Continue current medical management. 04/22/2019-continue requirements plans with pain control and anxiety control for comfort care measures only. Still awaiting placement at facility for comfort care/hospice. Unfortunately, patient's family report caring for patient at home. 04/23/2019-continue current plans with pain control medication and anxiety medication. Comfort care measures only. Still awaiting placement to facility for comfort care/hospice. 04/24/2019-continue current plans with pain control and anxiety control. Still awaiting placement at facility for comfort care/hospice. 04/25/2019-continue current plans with pain control and anxiety control. Still awaiting placement at facility for comfort care/hospice. Currently liaison planner awaiting assessment to see if patient qualifies for [facility]. 04/26/2019-unfortunately, patient was denied by [facility] for inpatient hospice. I discussed with her son Atul who tells me that he is working on getting DURABLE POWER OF TIP STRETCHER in order to be able to access patient's bank funds to use it to cover her fees. I discussed taking her home for home hospice while he continues to work on the DURABLE POWER OF TIP STRETCHER to get her to hospice facility but Atul persistently refused stating that he does not have space for her in his home because he has only 1 bedroom, one living room and has a kid. Continue hospice care. 04/27/2019-the patient son is at the bedside. He was able to obtain DURABLE POWER OF TIP STRETCHER and in fact will be going to the bank later today so that he can access the patient's funds to begin to arrange placement. The patient is quite comfortable today. Vital signs are stable. Continuing current medication regimen. - Time Time Spent with patient: 15-24 minutes Medications reviewed and adjusted accordingly: Yes Anticipated discharge: Other - Long-term care
[2019-04-27] MEDS ORDERED: HALOPERIDOL LACTATE INJ 5 MG/1 ML VIAL IV PRN (19:54)
[2019-04-27] MEDS ORDERED: HALOPERIDOL LACTATE INJ 5 MG/1 ML VIAL IM PRN (19:54)
[2019-04-28] MEDS: MORPHINE SULFATE 10 MG/5 ML ORAL SOLUTION UDCUP PO PRN ×3 (05:49→17:25)
[2019-04-28] MEDS: CARVEDILOL 12.5 MG TABLET PO SCH ×2 (09:48→21:31)
[2019-04-28] MEDS: DEXAMETHASONE 4 MG TABLET PO SCH ×2 (09:48→21:31)
[2019-04-28] MEDS: DOCUSATE SODIUM 100 MG CAPSULE PO SCH ×3 (09:48→17:25)
[2019-04-28] MEDS: POLYETHYLENE GLYCOL 3350 POWDER 17 GM/1 PACKET PO SCH (09:49)
--- NOTE | 2019-04-28 14:06 | PDOC PROGRESS REPORT ---
Subjective Progress Note for:: 04/28/19 Subjective:: Patient was extremely agitated last night and required as needed medication. She is extremely paranoid today. She is complaining of leg pain. Reason For Visit: APRIL, HYPERCALCEMIA, METASTATIC DISEASE Physical Exam Vital Signs: Temp Pulse Resp BP Pulse Ox 98.8 F 84 16 141/71 H 96 04/28/19 11:43 04/28/19 11:43 04/28/19 11:43 04/28/19 11:43 04/28/19 11:43 Intake & Output 04/27/19 04/28/19 04/29/19 06:59 06:59 06:59 Intake Total 366 100 Balance 366 100 Weight 51.7 kg 51.7 kg General appearance: PRESENT: other - Extremely paranoid. ABSENT: cooperative Head exam: PRESENT: atraumatic, normocephalic Respiratory exam: PRESENT: clear to auscultation cindy - Anteriorly, symmetrical, unlabored. ABSENT: rales, rhonchi, tachypnea, wheezes Cardiovascular exam: PRESENT: RRR, +S1, +S2 GI/Abdominal exam: PRESENT: normal bowel sounds, soft. ABSENT: tenderness Neurological exam: PRESENT: alert, awake, oriented to person, oriented to situation Psychiatric exam: PRESENT: unusual affect. ABSENT: agitated - Currently not agitated but was very agitated last night. Focused psych exam: PRESENT: paranoid - Extremely paranoid. Results Laboratory Results: 04/13/19 07:14 04/17/19 04:26 Impressions: Renal Ultrasound 04/06/19 00:00 IMPRESSION: 1. No abnormality of the kidneys. 2. Wells catheter within the urinary bladder. 3. Cholelithiasis without other associated ancillary findings to indicate an acute cholecystitis. Lumbar Spine CT 04/06/19 13:16 IMPRESSION: Multiple lytic lesions throughout the lumbar spine with a large expansile lesion in the left L3 transverse process. Findings are most consistent with metastatic disease. Does the patient have a known primary? Femur X-Ray 04/06/19 13:17 IMPRESSION: Lytic lesion in the mid left femur suspicious for primary neoplasm or metastatic disease. Chest X-Ray 04/06/19 16:13 IMPRESSION: NO ACUTE RADIOGRAPHIC FINDING IN THE CHEST. Skeletal Survey 04/07/19 17:43 IMPRESSION: 1. Lytic lesions in the left humerus, lumbar spine and left femur. 2. Acute nondisplaced fracture of the right posterior-lateral 7th rib. Chest CT 04/12/19 00:00 IMPRESSION: 1. Known bone lesions. Suggestive of osseous metastases. Present diffusely. 2. Primary may be pulmonary, in the left lower lobe. There is low-density masslike abnormal opacity in the apex extending to abut the hilum with probable associated mediastinal and hilar adenopathy. 3. Indeterminate liver lesion. Indeterminate left adrenal mass. Findings are considered suspicious for metastasis, however. 4. Infrarenal abdominal aortic aneurysm. 5. Cholelithiasis. AAA Size: Follow-up Recommendation 3.0-3.4 cm Every 3 years *Based upon the Society for Vascular Surgery Guidelines: J Vasc Surg. 2009 Nov;50(4 Suppl):S2-49 *For aortas of maximum diameter of 2.6-2.9 cm meeting the criteria for AAA (?1.5 x proximal normal segment) Abdomen/Pelvis CT 04/12/19 09:17 IMPRESSION: 1. Known bone lesions. Suggestive of osseous metastases. Present diffusely. 2. Primary may be pulmonary, in the left lower lobe. There is low-density masslike abnormal opacity in the apex extending to abut the hilum with probable associated mediastinal and hilar adenopathy. 3. Indeterminate liver lesion. Indeterminate left adrenal mass. Findings are considered suspicious for metastasis, however. 4. Infrarenal abdominal aortic aneurysm. 5. Cholelithiasis. AAA Size: Follow-up Recommendation 3.0-3.4 cm Every 3 years *Based upon the Society for Vascular Surgery Guidelines: J Vasc Surg. 2009 Nov;50(4 Suppl):S2-49 *For aortas of maximum diameter of 2.6-2.9 cm meeting the criteria for AAA (?1.5 x proximal normal segment) Head MRI 04/13/19 00:00 IMPRESSION: 1. Supratentorial ring-enhancing tiny metastatic lesions, left temporal and right frontal lobes. 2. Solitary right inferior cerebellar ring-enhancing metastatic lesion. EVIDENCE OF ACUTE STROKE: NO. Assessment and Plan - Diagnosis (1) Brain metastasis Is this a current diagnosis for this admission?: Yes (2) APRIL (acute kidney injury) Is this a current diagnosis for this admission?: Yes (3) Anemia Qualifiers: Other causes of anemia: chronic disease, neoplastic Is this a current diagnosis for this admission?: Yes (4) Anorexia Is this a current diagnosis for this admission?: Yes (5) Cancer of lower lobe of lung Qualifiers: Laterality: left Qualified Code(s): C34.32 - Malignant neoplasm of lower lobe, left bronchus or lung Is this a current diagnosis for this admission?: Yes (6) Elevated LFTs Is this a current diagnosis for this admission?: Yes (7) Hypercalcemia Is this a current diagnosis for this admission?: Yes (8) Hypertension Is this a current diagnosis for this admission?: Yes (9) Low back pain Qualifiers: Chronicity: chronic Back pain laterality: midline Sciatica presence: without sciatica Qualified Code(s): M54.5 - Low back pain; G89.29 - Other chronic pain Is this a current diagnosis for this admission?: Yes (10) Lytic bone lesion of femur Is this a current diagnosis for this admission?: Yes (11) Malignancy Is this a current diagnosis for this admission?: Yes (12) Pain, neoplasm-related Is this a current diagnosis for this admission?: Yes - Plan Summary Summary: Continue comfort care. Currently making plans for placement at hospice facility versus home hospice. Adjusted patient's aquatics and place patient on morphine to help with pain control. 04/19/2019-continue comfort care measures. Awaiting placement at facility for hospice. Continue narcotics for pain control. Continue Ativan for anxiety. Bowel regimen. 04/20/2019-patient is comfortable today in no distress. Continue comfort measu res and still awaiting placement at facility for hospice. Continue narcotics for pain control with adequate bowel regimen. Ativan as needed for anxiety. Discharge planning working on placement. 04/21/2019-no changes in current plan for comfort care. Still awaiting SNF placement. Continue current medical management. 04/22/2019-continue requirements plans with pain control and anxiety control for comfort care measures only. Still awaiting placement at facility for comfort care/hospice. Unfortunately, patient's family report caring for patient at home. 04/23/2019-continue current plans with pain control medication and anxiety medication. Comfort care measures only. Still awaiting placement to facility for comfort care/hospice. 04/24/2019-continue current plans with pain control and anxiety control. Still awaiting placement at facility for comfort care/hospice. 04/25/2019-continue current plans with pain control and anxiety control. Still awaiting placement at facility for comfort care/hospice. Currently production control planner awaiting assessment to see if patient qualifies for [facility]. 04/26/2019-unfortunately, patient was denied by [facility] for inpatient hospice. I discussed with her son Atul who tells me that he is working on getting DURABLE POWER OF STAFF AUDITOR in order to be able to access patient's bank funds to use it to cover her fees. I discussed taking her home for home hospice while he continues to work on the DURABLE POWER OF STAFF AUDITOR to get her to hospice facility but Atul persistently refused stating that he does not have space for her in his home because he has only 1 bedroom, one living room and has a kid. Continue hospice care. 04/27/2019-the patient son is at the bedside. He was able to obtain DURABLE POWER OF STAFF AUDITOR and in fact will be going to the bank later today so that he can access the patient's funds to begin to arrange placement. The patient is quite comfortable today. Vital signs are stable. Continuing current medication regimen. 04/28/2019-the patient was very agitated last night. Unfortunately she is refusing to take the majority of her medications. IV or IM antipsychotic medication is available. If she would comply with taking oral medications we could you schedule Risperdal or Zyprexa. She required restraints last night. I am going to decrease vital signs to every shift to try and limit interaction with the staff. She told me that yesterday we discussed not having the nurses come back in her room at all. This is not the case. Her son was at the bedside and he tried to interject and tell her that we did not have that discussion but she got quite angry and told him to sit back in his chair and just watch because she was talking to the doctor. It seems that this behavior is starting to be a continuous issue. We will continue to monitor. We will try and limit interactions. - Time Time Spent with patient: 15-24 minutes Medications reviewed and adjusted accordingly: Yes Anticipated discharge: Other - Long-term care
[2019-04-29] MEDS: DEXAMETHASONE 4 MG TABLET PO SCH ×2 (11:03→21:51)
[2019-04-29] MEDS: CARVEDILOL 12.5 MG TABLET PO SCH ×2 (11:03→21:51)
[2019-04-29] MEDS: DOCUSATE SODIUM 100 MG CAPSULE PO SCH ×2 (11:03→18:07)
[2019-04-29] MEDS: FENTANYL 75 MCG/HR PATCH.TD72 TD SCH (11:04)
[2019-04-29] MEDS: POLYETHYLENE GLYCOL 3350 POWDER 17 GM/1 PACKET PO SCH (11:05)
--- NOTE | 2019-04-29 11:31 | PDOC PROGRESS REPORT ---
Subjective Subjective:: The patient still remains slightly agitated. The paranoia is not as bad as yesterday. She is still quite gruff with her son. She reports that the pain in her left leg is reasonably controlled but her appetite was off this morning. Reason For Visit: APRIL, HYPERCALCEMIA, METASTATIC DISEASE Physical Exam Vital Signs: Temp Pulse Resp BP Pulse Ox 98.5 F 85 18 134/77 H 98 04/29/19 07:50 04/29/19 07:50 04/29/19 07:50 04/29/19 07:50 04/29/19 07:50 Intake & Output 04/28/19 04/29/19 04/30/19 06:59 06:59 06:59 Intake Total 100 1010 Balance 100 1010 Weight 51.7 kg 53.7 kg General appearance: PRESENT: no acute distress, cooperative, well-developed Head exam: PRESENT: atraumatic, normocephalic Ear exam: PRESENT: normal external ear exam. ABSENT: bleeding, drainage Mouth exam: PRESENT: moist, tongue midline Respiratory exam: PRESENT: clear to auscultation cindy, symmetrical, unlabored. ABSENT: accessory muscle use, prolonged expiratory phas, rales, rhonchi, tachypnea, wheezes Cardiovascular exam: PRESENT: RRR, +S1, +S2. ABSENT: diastolic murmur, systolic murmur GI/Abdominal exam: PRESENT: normal bowel sounds, soft. ABSENT: distended, guarding, tenderness Rectal exam: PRESENT: deferred Neurological exam: PRESENT: alert, awake, oriented to person, oriented to place, oriented to situation, CN II-XII grossly intact Psychiatric exam: PRESENT: unusual affect - Affect was quite long when communicating with her son. She was quite pleasant to this provider.. ABSENT: agitated, anxious Results Laboratory Results: 04/13/19 07:14 04/17/19 04:26 Impressions: Renal Ultrasound 04/06/19 00:00 IMPRESSION: 1. No abnormality of the kidneys. 2. Wells catheter within the urinary bladder. 3. Cholelithiasis without other associated ancillary findings to indicate an acute cholecystitis. Lumbar Spine CT 04/06/19 13:16 IMPRESSION: Multiple lytic lesions throughout the lumbar spine with a large expansile lesion in the left L3 transverse process. Findings are most consistent with metastatic disease. Does the patient have a known primary? Femur X-Ray 04/06/19 13:17 IMPRESSION: Lytic lesion in the mid left femur suspicious for primary neoplasm or metastatic disease. Chest X-Ray 04/06/19 16:13 IMPRESSION: NO ACUTE RADIOGRAPHIC FINDING IN THE CHEST. Skeletal Survey 04/07/19 17:43 IMPRESSION: 1. Lytic lesions in the left humerus, lumbar spine and left femur. 2. Acute nondisplaced fracture of the right posterior-lateral 7th rib. Chest CT 04/12/19 00:00 IMPRESSION: 1. Known bone lesions. Suggestive of osseous metastases. Present diffusely. 2. Primary may be pulmonary, in the left lower lobe. There is low-density masslike abnormal opacity in the apex extending to abut the hilum with probable associated mediastinal and hilar adenopathy. 3. Indeterminate liver lesion. Indeterminate left adrenal mass. Findings are considered suspicious for metastasis, however. 4. Infrarenal abdominal aortic aneurysm. 5. Cholelithiasis. AAA Size: Follow-up Recommendation 3.0-3.4 cm Every 3 years *Based upon the Society for Vascular Surgery Guidelines: J Vasc Surg. 2009 Oct;50(4 Suppl):S2-49 *For aortas of maximum diameter of 2.6-2.9 cm meeting the criteria for AAA (?1.5 x proximal normal segment) Abdomen/Pelvis CT 04/12/19 09:17 IMPRESSION: 1. Known bone lesions. Suggestive of osseous metastases. Present diffusely. 2. Primary may be pulmonary, in the left lower lobe. There is low-density masslike abnormal opacity in the apex extending to abut the hilum with probable associated mediastinal and hilar adenopathy. 3. Indeterminate liver lesion. Indeterminate left adrenal mass. Findings are considered suspicious for metastasis, however. 4. Infrarenal abdominal aortic aneurysm. 5. Cholelithiasis. AAA Size: Follow-up Recommendation 3.0-3.4 cm Every 3 years *Based upon the Society for Vascular Surgery Guidelines: J Vasc Surg. 2009 Nov;50(4 Suppl):S2-49 *For aortas of maximum diameter of 2.6-2.9 cm meeting the criteria for AAA (?1.5 x proximal normal segment) Head MRI 04/13/19 00:00 IMPRESSION: 1. Supratentorial ring-enhancing tiny metastatic lesions, left temporal and right frontal lobes. 2. Solitary right inferior cerebellar ring-enhancing metastatic lesion. EVIDENCE OF ACUTE STROKE: NO. Assessment and Plan - Diagnosis (1) Brain metastasis Is this a current diagnosis for this admission?: Yes (2) APRIL (acute kidney injury) Is this a current diagnosis for this admission?: Yes (3) Anemia Qualifiers: Other causes of anemia: chronic disease, neoplastic Is this a current diagnosis for this admission?: Yes (4) Anorexia Is this a current diagnosis for this admission?: Yes (5) Cancer of lower lobe of lung Qualifiers: Laterality: left Qualified Code(s): C34.32 - Malignant neoplasm of lower lobe, left bronchus or lung Is this a current diagnosis for this admission?: Yes (6) Elevated LFTs Is this a current diagnosis for this admission?: Yes (7) Hypercalcemia Is this a current diagnosis for this admission?: Yes (8) Hypertension Is this a current diagnosis for this admission?: Yes (9) Low back pain Qualifiers: Chronicity: chronic Back pain laterality: midline Sciatica presence: without sciatica Qualified Code(s): M54.5 - Low back pain; G89.29 - Other chronic pain Is this a current diagnosis for this admission?: Yes (10) Lytic bone lesion of femur Is this a current diagnosis for this admission?: Yes (11) Malignancy Is this a current diagnosis for this admission?: Yes (12) Pain, neoplasm-related Is this a current diagnosis for this admission?: Yes - Plan Summary Summary: Continue comfort care. Currently making plans for placement at hospice facility versus home hospice. Adjusted patient's aquatics and place patient on morphine to help with pain control. 04/19/2019-continue comfort care measures. Awaiting placement at facility for hospice. Continue narcotics for pain control. Continue Ativan for anxiety. Bowel regimen. 04/20/2019-patient is comfortable today in no distress. Continue comfort measures and still awaiting placement at facility for hospice. Continue narcotics for pain control with adequate bowel regimen. Ativan as needed for anxiety. Discharge planning working on placement. 04/21/2019-no changes in current plan for comfort care. Still awaiting SNF placement. Continue current medical management. 04/22/2019-continue requirements plans with pain control and anxiety control for comfort care measures only. Still awaiting placement at facility for comfort care/hospice. Unfortunately, patient's family report caring for patient at home. 04/23/2019-continue current plans with pain control medication and anxiety medication. Comfort care measures only. Still awaiting placement to facility for comfort care/hospice. 04/24/2019-continue current plans with pain control and anxiety control. Still awaiting placement at facility for comfort care/hospice. 04/25/2019-continue current plans with pain control and anxiety control. Still awaiting placement at facility for comfort care/hospice. Currently kit planner awaiting assessment to see if patient qualifies for [facility]. 04/26/2019-unfortunately, patient was denied by [facility] for inpatient hospice. I discussed with her son Atul who tells me that he is working on getting DURABLE POWER OF TOOL ANALYST in order to be able to access patient's bank funds to use it to cover her fees. I discussed taking her home for home hospice while he continues to work on the DURABLE POWER OF TOOL ANALYST to get her to hospice facility but Atul persistently refused stating that he does not have space for her in his home because he has only 1 bedroom, one living room and has a kid. Continue hospice care. 04/27/2019-the patient son is at the bedside. He was able to obtain DURABLE POWER OF TOOL ANALYST and in fact will be going to the bank later today so that he can access the patient's funds to begin to arrange placement. The patient is quite comfortable today. Vital signs are stable. Continuing current medication regimen. 04/28/2019-the patient was very agitated last night. Unfortunately she is refusing to take the majority of her medications. IV or IM antipsychotic medication is available. If she would comply with taking oral medications we could you schedule Risperdal or Zyprexa. She required restraints last night. I am going to decrease vital signs to every shift to try and limit interaction with the staff. She told me that yesterday we discussed not having the nurses come back in her room at all. This is not the case. Her son was at the bedside and he tried to interject and tell her that we did not have that discussion but she got quite angry and told him to sit back in his chair and just watch because she was talking to the doctor. It seems that this behavior is starting to be a continuous issue. We will continue to monitor. We will try and limit interactions. 04/29/2019-the patient was long and somewhat reprimanding when communicating with her son. She was a little confused this morning in terms of misunderstanding some of the communication. She certainly knew who she was and where she was and her current clinical issues. Vital signs have been stable. No new acute clinical issues that need to be addressed. An [place] 2 form was provided to the patient's son. This was required to help with financial planning for transition to long-term care. - Time Time Spent with patient: 15-24 minutes Medications reviewed and adjusted accordingly: Yes Anticipated discharge: Other - Long-term care
[2019-04-29] MEDS: MORPHINE SULFATE 10 MG/5 ML ORAL SOLUTION UDCUP PO PRN (12:56)
[2019-04-29] MEDS ORDERED: NA PHOS,M-B/NA PHOS,DI-BA (ADULT) 133 ML ENEMA PR ONE (14:07)
[2019-04-29] MEDS: LORAZEPAM 0.5 MG TABLET PO PRN (14:58)
[2019-04-30] MEDS: ACETAMINOPHEN 325 MG TABLET PO PRN ×2 (01:43→07:33)
--- NOTE | 2019-04-30 10:26 | PDOC PROGRESS REPORT ---
Subjective Progress Note for:: 04/30/19 Subjective:: The patient is resting comfortably. She did have a good response to the enema yesterday and had a good bowel movement. She slept well last night. Her leg still hurts but there are no other acute complaints. She did express negative comments regarding her children and the care that they have provided over the years. Reason For Visit: APRIL, HYPERCALCEMIA, METASTATIC DISEASE Physical Exam Vital Signs: Temp Pulse Resp BP Pulse Ox 97.9 F 80 16 121/72 99 04/30/19 07:09 04/30/19 07:09 04/30/19 07:09 04/30/19 07:09 04/30/19 07:09 Intake & Output 04/29/19 04/30/19 05/01/19 06:59 06:59 06:59 Intake Total 1010 240 Balance 1010 240 Weight 53.7 kg 49.5 kg General appearance: PRESENT: cooperative, mild distress, well-developed Head exam: PRESENT: atraumatic, normocephalic Respiratory exam: PRESENT: clear to auscultation cindy, symmetrical, unlabored. ABSENT: accessory muscle use, prolonged expiratory phas, rales, rhonchi, tachypnea, wheezes Cardiovascular exam: PRESENT: RRR, +S1, +S2, systolic murmur - 6. GI/Abdominal exam: PRESENT: normal bowel sounds, soft. ABSENT: distended, guarding, tenderness Rectal exam: PRESENT: deferred Gentrourinary exam: ABSENT: indwelling catheter Neurological exam: PRESENT: alert, awake, oriented to person, oriented to place, oriented to situation, CN II-XII grossly intact Psychiatric exam: PRESENT: unusual affect. ABSENT: agitated, anxious Focused psych exam: PRESENT: paranoid - It is difficult to know if her thoughts are justified or not. She expressed concern about the plans moving forward with regard to her son orchestrating the disposition. She expressed the thought of her son just leaving her in a ditch. At first I thought she was getting. She corrected me and in fact said that she was serious. She then went on to say t hat if she could do everything over she would do things differently. It is almost implying that she was talking about not having her children based on their interactions lately. It is very difficult to know how accurate the statements are. Skin exam: PRESENT: dry, normal color, warm Results Laboratory Results: 04/13/19 07:14 04/17/19 04:26 Impressions: Renal Ultrasound 04/06/19 00:00 IMPRESSION: 1. No abnormality of the kidneys. 2. Wells catheter within the urinary bladder. 3. Cholelithiasis without other associated ancillary findings to indicate an acute cholecystitis. Lumbar Spine CT 04/06/19 13:16 IMPRESSION: Multiple lytic lesions throughout the lumbar spine with a large expansile lesion in the left L3 transverse process. Findings are most consistent with metastatic disease. Does the patient have a known primary? Femur X-Ray 04/06/19 13:17 IMPRESSION: Lytic lesion in the mid left femur suspicious for primary neoplasm or metastatic disease. Chest X-Ray 04/06/19 16:13 IMPRESSION: NO ACUTE RADIOGRAPHIC FINDING IN THE CHEST. Skeletal Survey 04/07/19 17:43 IMPRESSION: 1. Lytic lesions in the left humerus, lumbar spine and left femur. 2. Acute nondisplaced fracture of the right posterior-lateral 7th rib. Chest CT 04/12/19 00:00 IMPRESSION: 1. Known bone lesions. Suggestive of osseous metastases. Present diffusely. 2. Primary may be pulmonary, in the left lower lobe. There is low-density masslike abnormal opacity in the apex extending to abut the hilum with probable associated mediastinal and hilar adenopathy. 3. Indeterminate liver lesion. Indeterminate left adrenal mass. Findings are considered suspicious for metastasis, however. 4. Infrarenal abdominal aortic aneurysm. 5. Cholelithiasis. AAA Size: Follow-up Recommendation 3.0-3.4 cm Every 3 years *Based upon the Society for Vascular Surgery Guidelines: J Vasc Surg. 2009 Nov;50(4 Suppl):S2-49 *For aortas of maximum diameter of 2.6-2.9 cm meeting the criteria for AAA (?1.5 x proximal normal segment) Abdomen/Pelvis CT 04/12/19 09:17 IMPRESSION: 1. Known bone lesions. Suggestive of osseous metastases. Present diffusely. 2. Primary may be pulmonary, in the left lower lobe. There is low-density masslike abnormal opacity in the apex extending to abut the hilum with probable associated mediastinal and hilar adenopathy. 3. Indeterminate liver lesion. Indeterminate left adrenal mass. Findings are considered suspicious for metastasis, however. 4. Infrarenal abdominal aortic aneurysm. 5. Cholelithiasis. AAA Size: Follow-up Recommendation 3.0-3.4 cm Every 3 years *Based upon the Society for Vascular Surgery Guidelines: J Vasc Surg. 2009 Nov;50(4 Suppl):S2-49 *For aortas of maximum diameter of 2.6-2.9 cm meeting the criteria for AAA (?1.5 x proximal normal segment) Head MRI 04/13/19 00:00 IMPRESSION: 1. Supratentorial ring-enhancing tiny metastatic lesions, left temporal and right frontal lobes. 2. Solitary right inferior cerebellar ring-enhancing metastatic lesion. EVIDENCE OF ACUTE STROKE: NO. Assessment and Plan - Diagnosis (1) Brain metastasis Is this a current diagnosis for this admission?: Yes (2) APRIL (acute kidney injury) Is this a current diagnosis for this admission?: Yes (3) Anemia Qualifiers: Other causes of anemia: chronic disease, neoplastic Is this a current diagnosis for this admission?: Yes (4) Anorexia Is this a current diagnosis for this admission?: Yes (5) Cancer of lower lobe of lung Qualifiers: Laterality: left Qualified Code(s): C34.32 - Malignant neoplasm of lower lobe, left bronchus or lung Is this a current diagnosis for this admission?: Yes (6) Elevated LFTs Is this a current diagnosis for this admission?: Yes (7) Hypercalcemia Is this a current diagnosis for this admission?: Yes (8) Hypertension Is this a current diagnosis for this admission?: Yes (9) Low back pain Qualifiers: Chronicity: chronic Back pain laterality: midline Sciatica presence: without sciatica Qualified Code(s): M54.5 - Low back pain; G89.29 - Other chronic pain Is this a current diagnosis for this admission?: Yes (10) Lytic bone lesion of femur Is this a current diagnosis for this admission?: Yes (11) Malignancy Is this a current diagnosis for this admission?: Yes (12) Pain, neoplasm-related Is this a current diagnosis for this admission?: Yes - Plan Summary Summary: Continue comfort care. Currently making plans for placement at hospice facility versus home hospice. Adjusted patient's aquatics and place patient on morphine to help with pain control. 04/19/2019-continue comfort care measures. Awaiting placement at facility for hospice. Continue narcotics for pain control. Continue Ativan for anxiety. Bowel regimen. 04/20/2019-patient is comfortable today in no distress. Continue comfort measures and still awaiting placement at facility for hospice. Continue narcotics for pain control with adequate bowel regimen. Ativan as needed for anxiety. Discharge planning working on placement. 04/21/2019-no changes in current plan for comfort care. Still awaiting SNF place ment. Continue current medical management. 04/22/2019-continue requirements plans with pain control and anxiety control for comfort care measures only. Still awaiting placement at facility for comfort care/hospice. Unfortunately, patient's family report caring for patient at home. 04/23/2019-continue current plans with pain control medication and anxiety medication. Comfort care measures only. Still awaiting placement to facility for comfort care/hospice. 04/24/2019-continue current plans with pain control and anxiety control. Still awaiting placement at facility for comfort care/hospice. 04/25/2019-continue current plans with pain control and anxiety control. Still awaiting placement at facility for comfort care/hospice. Currently supply planner awaiting assessment to see if patient qualifies for [facility]. 04/26/2019-unfortunately, patient was denied by [facility] for inpatient hospice. I discussed with her son Atul who tells me that he is working on getting DURABLE POWER OF PROOF TECHNICIAN in order to be able to access patient's bank funds to use it to cover her fees. I discussed taking her home for home hospice while he continues to work on the DURABLE POWER OF PROOF TECHNICIAN to get her to hospice facility but Atul persistently refused stating that he does not have space for her in his home because he has only 1 bedroom, one living room and has a kid. Continue hospice care. 04/27/2019-the patient son is at the bedside. He was able to obtain DURABLE POWER OF PROOF TECHNICIAN and in fact will be going to the bank later today so that he can access the patient's funds to begin to arrange placement. The patient is quite comfortable today. Vital signs are stable. Continuing current medication regimen. 04/28/2019-the patient was very agitated last night. Unfortunately she is refusing to take the majority of her medications. IV or IM antipsychotic medication is available. If she would comply with taking oral medications we could you schedule Risperdal or Zyprexa. She required restraints last night. I am going to decrease vital signs to every shift to try and limit interaction with the staff. She told me that yesterday we discussed not having the nurses come back in her room at all. This is not the case. Her son was at the bedside and he tried to interject and tell her that we did not have that discussion but she got quite angry and told him to sit back in his chair and just watch because she was talking to the doctor. It seems that this behavior is starting to be a continuous issue. We will continue to monitor. We will try and limit inter actions. 04/29/2019-the patient was long and somewhat reprimanding when communicating with her son. She was a little confused this morning in terms of misunderstanding some of the communication. She certainly knew who she was and where she was and her current clinical issues. Vital signs have been stable. No new acute clinical issues that need to be addressed. An [place] 2 form was provided to the patient's son. This was required to help with financial planning for transition to long-term care. 04/30/2019 The patient did respond to the enema and had a good bowel movement. She reported having regular bowel movements but in fact this was not supported by nursing. Her urine output is down today. As noted above she is currently waiting for hospice placement. We will BladderScan her to see if she is retaining urine. We will encourage increased fluid intake but I do not believe I will administer IV fluids. Likewise laboratory studies will not be obtained at this time. Her vital signs are stable and normal. We will continue to provide hospice level care. She does report that pain in her leg is reasonably managed. Her current medications are keeping her stable and so I will not discontinue any medication at this time. - Time Time Spent with patient: 15-24 minutes Medications reviewed and adjusted accordingly: Yes Anticipated discharge: Hospice
[2019-04-30] MEDS: CARVEDILOL 12.5 MG TABLET PO SCH ×2 (10:40→21:01)
[2019-04-30] MEDS: DEXAMETHASONE 4 MG TABLET PO SCH ×2 (10:40→21:01)
[2019-04-30] MEDS: DOCUSATE SODIUM 100 MG CAPSULE PO SCH ×2 (10:40→18:18)
[2019-04-30] MEDS: MORPHINE SULFATE 10 MG/5 ML ORAL SOLUTION UDCUP PO PRN ×3 (10:41→20:58)
[2019-04-30] MEDS: POLYETHYLENE GLYCOL 3350 POWDER 17 GM/1 PACKET PO SCH (10:42)
[2019-05-01] MEDS: MORPHINE SULFATE 10 MG/5 ML ORAL SOLUTION UDCUP PO PRN ×3 (02:28→19:57)
[2019-05-01] MEDS: POLYETHYLENE GLYCOL 3350 POWDER 17 GM/1 PACKET PO SCH (09:04)
[2019-05-01] MEDS: DOCUSATE SODIUM 100 MG CAPSULE PO SCH ×2 (09:05→17:17)
[2019-05-01] MEDS: CARVEDILOL 12.5 MG TABLET PO SCH ×2 (09:05→21:00)
[2019-05-01] MEDS: DEXAMETHASONE 4 MG TABLET PO SCH ×2 (09:05→21:00)
--- NOTE | 2019-05-01 09:34 | PDOC PROGRESS REPORT ---
Subjective Progress Note for:: 05/01/19 Subjective:: The patient is resting comfortably this morning. There was concern about decreased urine output yesterday but she eventually urinated several times last night. She is otherwise comfortable with no new complaints this morning. Reason For Visit: APRIL, HYPERCALCEMIA, METASTATIC DISEASE Physical Exam Vital Signs: Temp Pulse Resp BP Pulse Ox 97.8 F 73 20 143/80 H 98 05/01/19 07:02 05/01/19 07:02 05/01/19 07:02 05/01/19 07:02 05/01/19 07:02 Intake & Output 04/30/19 05/01/19 05/02/19 06:59 06:59 06:59 Intake Total 240 220 Balance 240 220 Weight 49.5 kg 49.3 kg General appearance: PRESENT: no acute distress, cooperative, well-developed Head exam: PRESENT: atraumatic, normocephalic Respiratory exam: PRESENT: clear to auscultation cindy, symmetrical, unlabored. ABSENT: prolonged expiratory phas, rales, rhonchi, tachypnea, wheezes Cardiovascular exam: PRESENT: RRR, +S1, +S2. ABSENT: diastolic murmur, systolic murmur GI/Abdominal exam: PRESENT: normal bowel sounds, soft. ABSENT: distended, guarding, tenderness Rectal exam: PRESENT: deferred Gentrourinary exam: ABSENT: indwelling catheter Extremities exam: ABSENT: joint swelling, pedal edema Musculoskeletal exam: PRESENT: normal inspection. ABSENT: deformity Neurological exam: PRESENT: alert, awake, oriented to person, oriented to place, other - The patient answers most questions appropriately. Occasionally she will repeat a question that has already been answered or have a question unrelated to that current discussion. This is likely the effects of her brain metastases. Psychiatric exam: PRESENT: flat affect. ABSENT: agitated, anxious Results Laboratory Results: 04/13/19 07:14 04/17/19 04:26 Impressions: Renal Ultrasound 04/06/19 00:00 IMPRESSION: 1. No abnormality of the kidneys. 2. Wells catheter within the urinary bladder. 3. Cholelithiasis without other associated ancillary findings to indicate an acute cholecystitis. Lumbar Spine CT 04/06/19 13:16 IMPRESSION: Multiple lytic lesions throughout the lumbar spine with a large expansile lesion in the left L3 transverse process. Findings are most consistent with metastatic disease. Does the patient have a known primary? Femur X-Ray 04/06/19 13:17 IMPRESSION: Lytic lesion in the mid left femur suspicious for primary neoplasm or metastatic disease. Chest X-Ray 04/06/19 16:13 IMPRESSION: NO ACUTE RADIOGRAPHIC FINDING IN THE CHEST. Skeletal Survey 04/07/19 17:43 IMPRESSION: 1. Lytic lesions in the left humerus, lumbar spine and left femur. 2. Acute nondisplaced fracture of the right posterior-lateral 7th rib. Chest CT 04/12/19 00:00 IMPRESSION: 1. Known bone lesions. Suggestive of osseous metastases. Present diffusely. 2. Primary may be pulmonary, in the left lower lobe. There is low-density masslike abnormal opacity in the apex extending to abut the hilum with probable associated mediastinal and hilar adenopathy. 3. Indeterminate liver lesion. Indeterminate left adrenal mass. Findings are considered suspicious for metastasis, however. 4. Infrarenal abdominal aortic aneurysm. 5. Cholelithiasis. AAA Size: Follow-up Recommendation 3.0-3.4 cm Every 3 years *Based upon the Society for Vascular Surgery Guidelines: J Vasc Surg. 2009 Nov;50(4 Suppl):S2-49 *For aortas of maximum diameter of 2.6-2.9 cm meeting the criteria for AAA (?1.5 x proximal normal segment) Abdomen/Pelvis CT 04/12/19 09:17 IMPRESSION: 1. Known bone lesions. Suggestive of osseous metastases. Present diffusely. 2. Primary may be pulmonary, in the left lower lobe. There is low-density masslike abnormal opacity in the apex extending to abut the hilum with probable associated mediastinal and hilar adenopathy. 3. Indeterminate liver lesion. Indeterminate left adrenal mass. Findings are considered suspicious for metastasis, however. 4. Infrarenal abdominal aortic aneurysm. 5. Cholelithiasis. AAA Size: Follow-up Recommendation 3.0-3.4 cm Every 3 years *Based upon the Society for Vascular Surgery Guidelines: J Vasc Surg. 2009 Oct;50(4 Suppl):S2-49 *For aortas of maximum diameter of 2.6-2.9 cm meeting the criteria for AAA (?1.5 x proximal normal segment) Head MRI 04/13/19 00:00 IMPRESSION: 1. Supratentorial ring-enhancing tiny metastatic lesions, left temporal and right frontal lobes. 2. Solitary right inferior cerebellar ring-enhancing metastatic lesion. EVIDENCE OF ACUTE STROKE: NO. Assessment and Plan - Diagnosis (1) Brain metastasis Is this a current diagnosis for this admission?: Yes (2) APRIL (acute kidney injury) Is this a current diagnosis for this admission?: Yes (3) Anemia Qualifiers: Other causes of anemia: chronic disease, neoplastic Is this a current diagnosis for this admission?: Yes (4) Anorexia Is this a current diagnosis for this admission?: Yes (5) Cancer of lower lobe of lung Qualifiers: Laterality: left Qualified Code(s): C34.32 - Malignant neoplasm of lower lobe, left bronchus or lung Is this a current diagnosis for this admission?: Yes (6) Elevated LFTs Is this a current diagnosis for this admission?: Yes (7) Hypercalcemia Is this a current diagnosis for this admission?: Yes (8) Hypertension Is this a current diagnosis for this admission?: Yes (9) Low back pain Qualifiers: Chronicity: chronic Back pain laterality: midline Sciatica presence: without sciatica Qualified Code(s): M54.5 - Low back pain; G89.29 - Other chronic pain Is this a current diagnosis for this admission?: Yes (10) Lytic bone lesion of femur Is this a current diagnosis for this admission?: Yes (11) Malignancy Is this a current diagnosis for this admission?: Yes (12) Pain, neoplasm-related Is this a current diagnosis for this admission?: Yes - Plan Summary Summary: Continue comfort care. Currently making plans for placement at hospice facility versus home hospice. Adjusted patient's aquatics and place patient on morphine to help with pain control. 04/19/2019-continue comfort care measures. Awaiting placement at facility for hospice. Continue narcotics for pain control. Continue Ativan for anxiety. Bowel regimen. 04/20/2019-patient is comfortable today in no distress. Continue comfort measures and still awaiting placement at facility for hospice. Continue narcotics for pain control with adequate bowel regimen. Ativan as needed for anxiety. Discharge planning working on placement. 04/21/2019-no changes in current plan for comfort care. Still awaiting SNF placement. Continue current medical management. 04/22/2019-continue requirements plans with pain control and anxiety control for comfort care measures only. Still awaiting placement at facility for comfort care/hospice. Unfortunately, patient's family report caring for patient at home. 04/23/2019-continue current plans with pain control medication and anxiety medication. Comfort care measures only. Still awaiting placement to facility for comfort care/hospice. 04/24/2019-continue current plans with pain control and anxiety control. Still awaiting placement at facility for comfort care/hospice. 04/25/2019-continue current plans with pain control and anxiety control. Still awaiting placement at facility for comfort care/hospice. Currently operations planner awaiting assessment to see if patient qualifies for [facility]. 04/26/2019-unfortunately, patient was denied by [facility] for inpatient hospice. I discussed with her son Atul who tells me that he is working on getting [employer] in order to be able to access patient's bank funds to use it to cover her fees. I discussed taking her home for home hospice while he continues to work on the [employer] to get her to hospice facility but Atul persistently refused stating that he does not have space for her in his home because he has only 1 bedroom, one living room and has a kid. Continue hospice care. 04/27/2019-the patient son is at the bedside. He was able to obtain [employer] and in fact will be going to the bank later today so that he can access the patient's funds to begin to arrange placement. The patient is quite comfortable today. Vital signs are stable. Continuing current medication regimen. 04/28/2019-the patient was very agitated last night. Unfortunately she is refusing to take the majority of her medications. IV or IM antipsychotic medication is available. If she would comply with taking oral medications we could you schedule Risperdal or Zyprexa. She required restraints last night. I am going to decrease vital signs to every shift to try and limit interaction with the staff. She told me that yesterday we discussed not having the nurses come back in her room at all. This is not the case. Her son was at the bedside and he tried to interject and tell her that we did not have that discussion but she got quite angry and told him to sit back in his chair and just watch because she was talking to the doctor. It seems that this behavior is starting to be a continuous issue. We will continue to monitor. We will try and limit interactions. 04/29/2019-the patient was long and somewhat reprimanding when communicating with her son. She was a little confused this morning in terms of misunde rstanding some of the communication. She certainly knew who she was and where she was and her current clinical issues. Vital signs have been stable. No new acute clinical issues that need to be addressed. An [place] 2 form was provided to the patient's son. This was required to help with financial planning for transition to long-term care. 04/30/2019 The patient did respond to the enema and had a good bowel movement. She reported having regular bowel movements but in fact this was not supported by nursing. Her urine output is down today. As noted above she is currently waiting for hospice placement. We will BladderScan her to see if she is retaining urine. We will encourage increased fluid intake but I do not believe I will administer IV fluids. Likewise laboratory studies will not be obtained at this time. Her vital signs are stable and normal. We will continue to provide hospice level care. She does report that pain in her leg is reasonably managed. Her current medications are keeping her stable and so I will not discontinue any medication at this time. 05/01/2019 There was a concern about urine output however she refused straight cath when the bladder scan it was 497. She refused additional bladder scans. This became a nonissue after she urinated several times last night. Her appetite is been poor. I will annotate on her diet order that she loves fruit and they may possibly be able to give her more fruit to try and stimulate her appetite. She has adequate pain control at this time and appears otherwise comfortable. Awaiting long-term placement hospice level care. - Time Time Spent with patient: Less than 15 minutes Medications reviewed and adjusted accordingly: Yes Anticipated discharge: Hospice - At a long-term care facility
[2019-05-01] MEDS: ACETAMINOPHEN 325 MG TABLET PO PRN (12:15)
[2019-05-01] MEDS: OXYCODONE-ACETAMINOPHEN 5-325 MG TABLET PO PRN ×2 (12:44→20:56)
[2019-05-02] MEDS: MORPHINE SULFATE 10 MG/5 ML ORAL SOLUTION UDCUP PO PRN ×3 (03:50→21:18)
[2019-05-02] MEDS: OXYCODONE-ACETAMINOPHEN 5-325 MG TABLET PO PRN ×3 (08:25→19:59)
[2019-05-02] MEDS: ACETAMINOPHEN 325 MG TABLET PO PRN (08:25)
[2019-05-02] MEDS: DEXAMETHASONE 4 MG TABLET PO SCH ×2 (09:22→21:18)
[2019-05-02] MEDS: CARVEDILOL 12.5 MG TABLET PO SCH ×2 (09:22→21:18)
[2019-05-02] MEDS: POLYETHYLENE GLYCOL 3350 POWDER 17 GM/1 PACKET PO SCH (09:23)
[2019-05-02] MEDS: DOCUSATE SODIUM 100 MG CAPSULE PO SCH ×2 (09:23→17:21)
[2019-05-02] MEDS ORDERED: FENTANYL 25 MCG/HR PATCH.TD72 TD ONE ×2 (09:52)
[2019-05-02] MEDS ORDERED: FENTANYL 75 MCG/HR PATCH.TD72 TD SCH (10:00)
--- NOTE | 2019-05-02 11:01 | PDOC PROGRESS REPORT ---
Subjective Progress Note for:: 05/02/19 Subjective:: The patient has been experiencing increased pain. It seems that breakthrough medications are effective but not working as well as before. This is her only complaint today. The nurse does report that she was tearful earlier discussing her cancer and poor prognosis. Reason For Visit: APRIL, HYPERCALCEMIA, METASTATIC DISEASE Physical Exam Vital Signs: Temp Pulse Resp BP Pulse Ox 98 F 60 20 144/73 H 95 05/02/19 08:00 05/02/19 08:00 05/02/19 08:00 05/02/19 08:00 05/02/19 08:00 Intake & Output 05/01/19 05/02/19 05/03/19 06:59 06:59 06:59 Intake Total 220 360 Output Total 0 Balance 220 360 Weight 49.3 kg 50 kg General appearance: PRESENT: cooperative, mild distress, well-developed Head exam: PRESENT: atraumatic, normocephalic Respiratory exam: PRESENT: clear to auscultation cindy, symmetrical, unlabored. ABSENT: rales, rhonchi, tachypnea, wheezes Cardiovascular exam: PRESENT: RRR, +S1, +S2 GI/Abdominal exam: PRESENT: normal bowel sounds, soft. ABSENT: distended, guarding, tenderness Rectal exam: PRESENT: deferred Gentrourinary exam: ABSENT: indwelling catheter Extremities exam: ABSENT: pedal edema Neurological exam: PRESENT: alert, awake, oriented to person, oriented to place, oriented to situation Psychiatric exam: PRESENT: flat affect. ABSENT: agitated, anxious Results Laboratory Results: 04/13/19 07:14 04/17/19 04:26 Impressions: Renal Ultrasound 04/06/19 00:00 IMPRESSION: 1. No abnormality of the kidneys. 2. Wells catheter within the urinary bladder. 3. Cholelithiasis without other associated ancillary findings to indicate an acute cholecystitis. Lumbar Spine CT 04/06/19 13:16 IMPRESSION: Multiple lytic lesions throughout the lumbar spine with a large expansile lesion in the left L3 transverse process. Findings are most consistent with metastatic disease. Does the patient have a known primary? Femur X-Ray 04/06/19 13:17 IMPRESSION: Lytic lesion in the mid left femur suspicious for primary neoplasm or metastatic disease. Chest X-Ray 04/06/19 16:13 IMPRESSION: NO ACUTE RADIOGRAPHIC FINDING IN THE CHEST. Skeletal Survey 04/07/19 17:43 IMPRESSION: 1. Lytic lesions in the left humerus, lumbar spine and left femur. 2. Acute nondisplaced fracture of the right posterior-lateral 7th rib. Chest CT 04/12/19 00:00 IMPRESSION: 1. Known bone lesions. Suggestive of osseous metastases. Present diffusely. 2. Primary may be pulmonary, in the left lower lobe. There is low-density masslike abnormal opacity in the apex extending to abut the hilum with probable associated mediastinal and hilar adenopathy. 3. Indeterminate liver lesion. Indeterminate left adrenal mass. Findings are considered suspicious for metastasis, however. 4. Infrarenal abdominal aortic aneurysm. 5. Cholelithiasis. AAA Size: Follow-up Recommendation 3.0-3.4 cm Every 3 years *Based upon the Society for Vascular Surgery Guidelines: J Vasc Surg. 2009 Nov; 50(4 Suppl):S2-49 *For aortas of maximum diameter of 2.6-2.9 cm meeting the criteria for AAA (?1.5 x proximal normal segment) Abdomen/Pelvis CT 04/12/19 09:17 IMPRESSION: 1. Known bone lesions. Suggestive of osseous metastases. Present diffusely. 2. Primary may be pulmonary, in the left lower lobe. There is low-density masslike abnormal opacity in the apex extending to abut the hilum with probable associated mediastinal and hilar adenopathy. 3. Indeterminate liver lesion. Indeterminate left adrenal mass. Findings are considered suspicious for metastasis, however. 4. Infrarenal abdominal aortic aneurysm. 5. Cholelithiasis. AAA Size: Follow-up Recommendation 3.0-3.4 cm Every 3 years *Based upon the Society for Vascular Surgery Guidelines: J Vasc Surg. 2009 Nov ;50(4 Suppl):S2-49 *For aortas of maximum diameter of 2.6-2.9 cm meeting the criteria for AAA (?1.5 x proximal normal segment) Head MRI 04/13/19 00:00 IMPRESSION: 1. Supratentorial ring-enhancing tiny metastatic lesions, left temporal and right frontal lobes. 2. Solitary right inferior cerebellar ring-enhancing metastatic lesion. EVIDENCE OF ACUTE STROKE: NO. Assessment and Plan - Diagnosis (1) Brain metastasis Is this a current diagnosis for this admission?: Yes (2) APRIL (acute kidney injury) Is this a current diagnosis for this admission?: Yes (3) Anemia Qualifiers: Other causes of anemia: chronic disease, neoplastic Is this a current diagnosis for this admission?: Yes (4) Anorexia Is this a current diagnosis for this admission?: Yes (5) Cancer of lower lobe of lung Qualifiers: Laterality: left Qualified Code(s): C34.32 - Malignant neoplasm of lower lobe, left bronchus or lung Is this a current diagnosis for this admission?: Yes (6) Elevated LFTs Is this a current diagnosis for this admission?: Yes (7) Hypercalcemia Is this a current diagnosis for this admission?: Yes (8) Hypertension Is this a current diagnosis for this admission?: Yes (9) Low back pain Qualifiers: Chronicity: chronic Back pain laterality: midline Sciatica presence: without sciatica Qualified Code(s): M54.5 - Low back pain; G89.29 - Other chronic pain Is this a current diagnosis for this admission?: Yes (10) Lytic bone lesion of femur Is this a current diagnosis for this admission?: Yes (11) Malignancy Is this a current diagnosis for this admission?: Yes (12) Pain, neoplasm-related Is this a current diagnosis for this admission?: Yes - Plan Summary Summary: Continue comfort care. Currently making plans for placement at hospice facility versus home hospice. Adjusted patient's aquatics and place patient on morphine to help with pain control. 04/19/2019-continue comfort care measures. Awaiting placement at facility for hospice. Continue narcotics for pain control. Continue Ativan for anxiety. Bowel regimen. 04/20/2019-patient is comfortable today in no distress. Continue comfort measures and still awaiting placement at facility for hospice. Continue narcotics for pain control with adequate bowel regimen. Ativan as needed for anxiety. Discharge planning working on placement. 04/21/2019-no changes in current plan for comfort care. Still awaiting SNF placement. Continue current medical management. 04/22/2019-continue requirements plans with pain control and anxiety control for comfort care measures only. Still awaiting placement at facility for comfort care/hospice. Unfortunately, patient's family report caring for patient at home. 04/23/2019-continue current plans with pain control medication and anxiety medication. Comfort care measures only. Still awaiting placement to facility for comfort care/hospice. 04/24/2019-continue current plans with pain control and anxiety control. Still awaiting placement at facility for comfort care/hospice. 04/25/2019-continue current plans with pain control and anxiety control. Still awaiting placement at facility for comfort care/hospice. Currently management planner awaiting assessment to see if patient qualifies for [facility]. 04/26/2019-unfortunately, patient was denied by [facility] for inpatient hospice. I discussed with her son Atul who tells me that he is working on getting [employer] in order to be able to access patient's bank funds to use it to cover her fees. I discussed taking her home for home hospice while he continues to work on the [employer] to get her to hospice facility but Atul persistently refused stating that he does not have space for her in his home because he has only 1 bedroom, one living room and has a kid. Continue hospice care. 04/27/2019-the patient son is at the bedside. He was able to obtain [employer] and in fact will be going to the bank later today so that he can access the patient's funds to begin to arrange placement. The patient is quite comfortable today. Vital signs are stable. Continuing current medication regimen. 04/28/2019-the patient was very agitated last night. Unfortunately she is refusing to take the majority of her medications. IV or IM antipsychotic medication is available. If she would comply with taking oral medications we could you schedule Risperdal or Zyprexa. She required restraints last night. I am going to decrease vital signs to every shift to try and limit interaction with the staff. She told me that yesterday we discussed not having the nurses come back in her room at all. This is not the case. Her son was at the bedside and he tried to interject and tell her that we did not have that discussion but she got quite angry and told him to sit back in his chair and just watch because she was talking to the doctor. It seems that this behavior is starting to be a continuous issue. We will continue to monitor. We will try and limit interactions. 04/29/2019-the patient was long and somewhat reprimanding when communicating with her son. She was a little confused this morning in terms of misunderstanding some of the communication. She certainly knew who she was and where she was and her current clinical issues. Vital signs have been stable. No new acute clinical issues that need to be addressed. An [place] 2 form was provided to the patient's son. This was required to help with financial planning for transition to long-term care. 04/30/2019 The patient did respond to the enema and had a good bowel movement. She reported having regular bowel movements but in fact this was not supported by nursing. Her urine output is down today. As noted above she is currently waiting for hospice placement. We will BladderScan her to see if she is retaining urine. We will encourage increased fluid intake but I do not believe I will administer IV fluids. Likewise laboratory studies will not be obtained at this time. Her vital signs are stable and normal. We will continue to provide hospice level care. She does report that pain in her leg is reasonably managed. Her current medications are keeping her stable and so I will not discontinue any medication at this time. 05/01/2019 There was a concern about urine output however she refused straight cath when the bladder scan it was 497. She refused additional bladder scans. This became a nonissue after she urinated several times last night. Her appetite is been poor. I will annotate on her diet order that she loves fruit and they may possibly be able to give her more fruit to try and stimulate her appetite. She has adequate pain control at this time and appears otherwise comfortable. Awaiting long-term placement hospice level care. 05/02/2019 The patient was having increased pain today. She reports that the breakthrough pain medications are not as effective. I am going to increase her fentanyl patch to 100 mcg. I explained that this will help reduce the overall pain and possibly make the breakthrough pain less severe. She has several choices to use for breakthrough pain. We have not been performing regular laboratory studies as the patient is especially moving towards a hospice level of care. She has had no more urinary retention. Vital signs have been stable. We are also trying to limit vital signs as the patient can get quite irritated especially if multiple people are in contact with the patient every day. We are currently awaiting acceptance at a facility. - Time Time Spent with patient: Less than 15 minutes Medications reviewed and adjusted accordingly: Yes Anticipated discharge: Hospice
[2019-05-03] MEDS: OXYCODONE-ACETAMINOPHEN 5-325 MG TABLET PO PRN ×2 (08:51→18:00)
[2019-05-03] MEDS: DOCUSATE SODIUM 100 MG CAPSULE PO SCH ×2 (09:12→18:00)
[2019-05-03] MEDS: DEXAMETHASONE 4 MG TABLET PO SCH ×2 (09:12→21:58)
[2019-05-03] MEDS: CARVEDILOL 12.5 MG TABLET PO SCH ×2 (09:13→21:58)
[2019-05-03] MEDS: POLYETHYLENE GLYCOL 3350 POWDER 17 GM/1 PACKET PO SCH (09:13)
[2019-05-03] MEDS: MORPHINE SULFATE 10 MG/5 ML ORAL SOLUTION UDCUP PO PRN ×2 (12:48→19:01)
--- NOTE | 2019-05-03 15:04 | PDOC DISCHARGE SUMMARY ---
Impression - Admit/DC Date/PCP Admission Date/Primary Care Provider: 04/06/19 17:37 Discharge Date: 05/03/19 - Discharge Diagnosis (1) APRIL (acute kidney injury) Is this a current diagnosis for this admission?: Yes (2) Anemia Is this a current diagnosis for this admission?: Yes (3) Anorexia Is this a current diagnosis for this admission?: Yes (4) Brain metastasis Is this a current diagnosis for this admission?: Yes (5) Cancer of lower lobe of lung Is this a current diagnosis for this admission?: Yes (6) Elevated LFTs Is this a current diagnosis for this admission?: Yes (7) Hypercalcemia Is this a current diagnosis for this admission?: Yes (8) Hypertension Is this a current diagnosis for this admission?: Yes (9) Low back pain Is this a current diagnosis for this admission?: Yes (10) Lytic bone lesion of femur Is this a current diagnosis for this admission?: Yes (11) Malignancy Is this a current diagnosis for this admission?: Yes (12) Pain, neoplasm-related Is this a current diagnosis for this admission?: Yes - Additional Information Resuscitation Status: Do Not Resuscitate Discharge Diet: As Tolerated, Regular Discharge Activity: Activity As Tolerated, Balance Activity w/Rest Referrals: [facility] [Other] - 04/19/19 1:15 pm [facility] [Other] OLGA BRICENO MD [ACTIVE STAFF] - 04/22/19 8:30 am Prescriptions: Carvedilol [Coreg 12.5 mg Tablet] 25 mg PO Q12 #120 tablet Dexamethasone [Decadron 4 mg Tablet] 4 mg PO Q12 #60 tablet Fentanyl [Duragesic 100 Mcg/Hr Transdermal Patch] 1 each TD Q3DAYS #3 patch.td72 Fentanyl [Duragesic 75 Mcg/Hr Transdermal Patch] 1 each TD Q3DAYS #3 patch.td72 Oxycodone HCl/Acetaminophen [Percocet 5-325 mg Tablet] 1 tab PO Q4HP PRN #20 tablet PRN Reason: Home Medications: Acetaminophen [Tylenol 325 mg Tablet] 325 mg PO Q4HP PRN tablet 05/03/19 Carvedilol [Coreg 12.5 mg Tablet] 25 mg PO Q12 #120 tablet 05/03/19 Dexamethasone [Decadron 4 mg Tablet] 4 mg PO Q12 #60 tablet 05/03/19 Docusate Sodium [Colace 100 mg Capsule] 100 mg PO BID capsule 05/03/19 Fentanyl [Duragesic 100 Mcg/Hr Transdermal Patch] 1 each TD Q3DAYS #3 patch.td72 05/03/19 Fentanyl [Duragesic 75 Mcg/Hr Transdermal Patch] 1 each TD Q3DAYS #3 patch.td72 05/03/19 Oxycodone HCl/Acetaminophen [Percocet 5-325 mg Tablet] 1 tab PO Q4HP PRN #20 tablet 05/03/19 Polyethylene Glycol 3350 [Miralax Powder 17 gm/Packet] 17 gm PO DAILY powd.pack 05/03/19 History of Present Illiness History of Present Illness: Per H&P by Dr. Proctor: DANISH DOWLING is a 63 year old female with no significant past medical history presenting to ED complaining of progressively worsening bilateral hip and left lower extremity pain. Pain is described as constant, achy in nature, 10/10 on severity scale, worsened with any weightbearing or movement, relieved with ibuprofen. She is also c/o progressive weakness, fatigue, low appetite, weight loss of 30 pounds in the last 1 month, polydipsia and polyuria. This all started about 3 months ago with no apparent cause, denies any heavy lifting, trauma, chronic back pain, history of malignancy. She denies any headache, vision changes, numbness, tingling, focal neurological deficits, dysphagia, odynophagia, shortness of breath, chest pain, nausea, diarrhea, constipation or any urinary symptoms. Hospital Course Hospital Course: 04/19/2019-continue comfort care measures. Awaiting placement at facility for hospice. Continue narcotics for pain control. Continue Ativan for anxiety. Bowel regimen. 04/20/2019-patient is comfortable today in no distress. Continue comfort measures and still awaiting placement at facility for hospice. Continue narcotics for pain control with adequate bowel regimen. Ativan as needed for anxiety. Discharge planning working on placement. 04/21/2019-no changes in current plan for comfort care. Still awaiting SNF placement. Continue current medical management. 04/22/2019-continue requirements plans with pain control and anxiety control for comfort care measures only. Still awaiting placement at facility for comfort care/hospice. Unfortunately, patient's family report caring for patient at home. 04/23/2019-continue current plans with pain control medication and anxiety medication. Comfort care measures only. Still awaiting placement to facility for comfort care/hospice. 04/24/2019-continue current plans with pain control and anxiety control. Still awaiting placement at facility for comfort care/hospice. 04/25/2019-continue current plans with pain control and anxiety control. Still awaiting placement at facility for comfort care/hospice. Currently technical planner awaiting assessment to see if patient qualifies for [facility] case. 04/26/2019-unfortunately, patient was denied by [facility] program for inpatient hospice. I discussed with her son Atul who tells me that he is working on getting [employer]IST[employer] in order to be able to access patient's bank funds to use it to cover her fees. I discussed taking her home for home hospice while he continues to work on the [employer] HEALTH [employer]UCATION ASSISTANT to get her to hospice facility but Atul persistently refused stating that he does not have space for her in his home because he has only 1 bedroom, one living room and has a kid. Continue hospice care. 04/27/2019-the patient son is at the bedside. He was able to obtain [employer]ALTH [employer]UCATION ASSISTANT and in fact will be going to the bank later today so that he can access the patient's funds to begin to arrange placement. The patient is quite comfortable today. Vital signs are stable. Continuing current medication regimen. 04/28/2019-the patient was very agitated last night. Unfortunately she is refusing to take the majority of her medications. IV or IM antipsychotic medication is available. If she would comply with taking oral medications we could you schedule Risperdal or Zyprexa. She required restraints last night. I am going to decrease vital signs to every shift to try and limit interaction with the staff. She told me that yesterday we discussed not having the nurses come back in her room at all. This is not the case. Her son was at the bedside and he tried to interject and tell her that we did not have that discussion but she got quite angry and told him to sit back in his chair and just watch because she was talking to the doctor. It seems that this behavior is starting to be a continuous issue. We will continue to monitor. We will try and limit interactions. 04/29/2019-the patient was long and somewhat reprimanding when communicating with her son. She was a little confused this morning in terms of misunderstanding some of the communication. She certainly knew who she was and where she was and her current clinical issues. Vital signs have been stable. No new acute clinical issues that need to be addressed. An [place] 2 form was provided to the patient's son. This was required to help with financial planning for transition to long-term care. 04/30/2019 The patient did respond to the enema and had a good bowel movement. She reported having regular bowel movements but in fact this was not supported by nursing. Her urine output is down today. As noted above she is currently waiting for hospice placement. We will BladderScan her to see if she is retaining urine. We will encourage increased fluid intake but I do not believe I will administer IV fluids. Likewise laboratory studies will not be obtained at this time. Her vital signs are stable and normal. We will continue to provide hospice level care. She does report that pain in her leg is reasonably managed. Her current medications are keeping her stable and so I will not discontinue any medication at this time. 05/01/2019 There was a concern about urine output however she refused straight cath when the bladder scan it was 497. She refused additional bladder scans. This became a nonissue after she urinated several times last night. Her appetite is been poor. I will annotate on her diet order that she loves fruit and they may possibly be able to give her more fruit to try and stimulate her appetite. She has adequate pain control at this time and appears otherwise comfortable. Awaiting long-term placement hospice level care. 05/02/2019 The patient was having increased pain today. She reports that the breakthrough pain medications are not as effective. I am going to increase her fentanyl patch to 100 mcg. I explained that this will help reduce the overall pain and possibly make the breakthrough pain less severe. She has several choices to use for breakthrough pain. We have not been performing regular laboratory studies as the patient is especially moving towards a hospice level of care. She has had no more urinary retention. Vital signs have been stable. We are also trying to limit vital signs as the patient can get quite irritated especially if multiple people are in contact with the patient every day. We are currently awaiting acceptance at a facility. 05/03/19 Patient was medically stable for d/c to SNF and received bed offer yesterday. Family members turned down offer and are, instead, interested in d/c to home with [facility] services. Patient reports improved pain control since increase in Fentanyl patch yesterday; states she slept well. She is looking forward to discharge to home shortly with family members. They have no other questions or concerns today. Patient remains medically stable for discharge to home with home hospice services. Physical Exam Vital Signs: Temp Pulse Resp BP Pulse Ox 98.7 F 70 16 145/74 H 95 05/03/19 12:05 05/03/19 12:05 05/03/19 12:05 05/03/19 12:05 05/03/19 12:05 Intake & Output 05/02/19 05/03/19 05/04/19 06:59 06:59 06:59 Intake Total 360 350 120 Output Total 0 1 Balance 360 349 120 Weight 50 kg 53.1 kg General appearance: PRESENT: no acute distress, cooperative, thin, well- developed, well-nourished Head exam: PRESENT: atraumatic, normocephalic Eye exam: PRESENT: conjunctiva pink, EOMI, PERRLA. ABSENT: scleral icterus Mouth exam: PRESENT: moist, tongue midline Respiratory exam: PRESENT: clear to auscultation cindy, symmetrical, unlabored. ABSENT: rales, rhonchi, wheezes Cardiovascular exam: PRESENT: RRR, +S1, +S2. ABSENT: diastolic murmur, rubs, systolic murmur Pulses: PRESENT: normal dorsalis pedis pul Vascular exam: PRESENT: normal capillary refill Extremities exam: PRESENT: full ROM. ABSENT: calf tenderness, clubbing, pedal edema Neurological exam: PRESENT: alert, awake, oriented to person, oriented to place, oriented to time, oriented to situation, CN II-XII grossly intact. ABSENT: motor sensory deficit Psychiatric exam: PRESENT: appropriate affect, normal mood. ABSENT: homicidal ideation, suicidal ideation Skin exam: PRESENT: dry, intact, warm. ABSENT: cyanosis, rash Results Laboratory Results: WBC 10.1 10^3/uL (4.0-10.5) 04/13/19 07:14 RBC 3.49 10^6/uL (3.72-5.28) L 04/13/19 07:14 Hgb 10.7 g/dL (12.0-15.5) L 04/13/19 07:14 Hct 31.4 % (36.0-47.0) L 04/13/19 07:14 MCV 90 fl (80-97) 04/13/19 07:14 MCH 30.7 pg (27.0-33.4) 04/13/19 07:14 MCHC 34.2 g/dL (32.0-36.0) 04/13/19 07:14 RDW 15.7 % (11.5-14.0) H 04/13/19 07:14 Plt Count 463 10^3/uL (150-450) H 04/13/19 07:14 Lymph % (Auto) 17.8 % (13-45) 04/11/19 22:38 [place] % (Auto) 13.9 % (3-13) H 04/11/19 22:38 Eos % (Auto) 2.5 % (0-6) 04/11/19 22:38 Baso % (Auto) 0.5 % (0-2) 04/11/19 22:38 Absolute Neuts (auto) 6.3 10^3/uL (1.7-8.2) 04/11/19 22:38 Absolute Lymphs (auto) 1.7 10^3/uL (0.5-4.7) 04/11/19 22:38 Absolute Monos (auto) 1.3 10^3/uL (0.1-1.4) 04/11/19 22:38 Absolute Eos (auto) 0.2 10^3/uL (0.0-0.6) 04/11/19 22:38 Absolute Basos (auto) 0.0 10^3/uL (0.0-0.2) 04/11/19 22:38 Seg Neutrophils % 65.3 % (42-78) 04/11/19 22:38 Sodium 140.5 mmol/L (137-145) 04/17/19 04:26 Potassium 4.1 mmol/L (3.6-5.0) 04/17/19 04:26 Chloride 108 mmol/L (98-107) H 04/17/19 04:26 Carbon Dioxide 21 mmol/L (22-30) L 04/17/19 04:26 Anion Gap 12 (5-19) 04/17/19 04:26 BUN 21 mg/dL (7-20) H 04/17/19 04:26 Creatinine 0.63 mg/dL (0.52-1.25) 04/17/19 04:26 Est GFR ( Amer) > 60 (>60) 04/17/19 04:26 Est GFR (MDRD) Non-Af > 60 (>60) 04/17/19 04:26 Glucose 116 mg/dL (75-110) H 04/17/19 04:26 POC Glucose 119 mg/dL (70-110) H 04/09/19 20:57 Calcium 8.7 mg/dL (8.4-10.2) 04/17/19 04:26 Phosphorus 3.5 mg/dL (2.5-4.5) 04/07/19 04:28 Magnesium 1.8 mg/dL (1.6-2.3) 04/17/19 04:26 Total Bilirubin 0.5 mg/dL (0.2-1.3) 04/17/19 04:26 Direct Bilirubin 0.1 mg/dL (0.0-0.4) 04/17/19 04:26 Neonat Total Bilirubin Not Reportable 04/17/19 04:26 Neonat Direct Bilirubin Not Reportable 04/17/19 04:26 Neonat Indirect Bili Not Reportable 04/17/19 04:26 AST 62 U/L (14-36) H 04/17/19 04:26 ALT 135 U/L (<35) H 04/17/19 04:26 Alkaline Phosphatase 256 U/L (38-126) H 04/17/19 04:26 Lactate Dehydrogenase 455 U/L (120-246) H 04/06/19 20:22 Total Protein 6.0 g/dL (6.3-8.2) L 04/17/19 04:26 Albumin 3.3 g/dL (3.5-5.0) L 04/17/19 04:26 Globulin 2.7 g/dL (2.2-3.9) 04/06/19 20:22 Alb/Glob Ratio Alt Meth 1.1 (0.7-1.7) 04/06/19 20:22 Mjzoq-5-Rkwyhakci 0.3 g/dL (0.0-0.4) 04/06/19 20:22 Dcypl-8-Pulmtyisj 1.0 g/dL (0.4-1.0) 04/06/19 20: Beta Globulins 0.9 g/dL (0.7-1.3) 04/06/19 20: Qxjv-9-Mlwnpiqqvcadw 4.1 mg/L (0.6-2.4) H 04/06/19 20:22 Gamma Globulins 0.6 g/dL (0.4-1.8) 04/06/19 20: M-Michael Not Observed g/dL (Not Observ) 04/06/19 20:22 TSH < 0.01 uIU/mL (0.47-4.68) L 04/09/19 06:00 Free T4 0.95 ng/dL (0.78-2.19) 04/07/19 04:28 Free T3 pg/mL 3.55 pg/mL (2.77-5.27) 04/07/19 04:28 PTH Intact 16.3 pg/mL (10.0-65.0) 04/06/19 20:22 Immunoglobulin A 232 mg/dL (87-352) 04/06/19 20:22 Immunoglobulin G 651 mg/dL (700-1600) L 04/06/19 20: Immunoglobulin M 32 mg/dL (26-217) 04/06/19 20:22 Serum Immunofixation Comment (.) 04/06/19 20: Immunofixation Note Comment (.) 04/06/19 20:22 Urine Color YELLOW 04/12/19 22:30 Urine Appearance CLOUDY 04/12/19 22:30 Urine pH 5.0 (5.0-9.0) 04/12/19 22:30 Ur Specific [place] 1.032 04/12/19 22:30 Urine Protein 30 mg/dL (NEGATIVE) H 04/12/19 22:30 Urine Glucose (UA) NEGATIVE mg/dL (NEGATIVE) 04/12/19 22:30 Urine Ketones TRACE mg/dL (NEGATIVE) H 04/12/19 22:30 Urine Blood SMALL (NEGATIVE) H 04/12/19 22:30 Urine Nitrite Cancelled 04/06/19 09:16 Urine Nitrite (Reflex) NEGATIVE (NEGATIVE) 04/12/19 22:30 Urine Bilirubin NEGATIVE (NEGATIVE) 04/12/19 22:30 Urine Urobilinogen NEGATIVE mg/dL (<2.0) 04/12/19 22:30 Ur Leukocyte Esterase Cancelled 04/06/19 09:16 Leukocyte Esterase Rfl TRACE (NEGATIVE) H 04/12/19 22:30 Urine WBC (Auto) Cancelled 04/06/19 09:16 Urine RBC (Auto) 27 /HPF 04/12/19 22:30 U Hyaline Cast (Auto) 1 /LPF 04/07/19 09:15 Urine Bacteria (Auto) TRACE /HPF 04/12/19 22:30 Urine Red Cell Clumps Cancelled 04/06/19 09:16 Urine WBC (Reflex) 12 /HPF 04/12/19 22:30 Urine WBC Clumps Cancelled 04/06/19 09:16 Squamous Epi Cells Auto 12 /HPF 04/12/19 22:30 U Non-Squamous Epis Auto 3 /HPF 04/12/19 22:30 Calcium Carbonate Cryst Cancelled 04/06/19 09:16 Calcium Phosphate Cryst Cancelled 04/06/19 09:16 Calcium Oxalate Cr Auto Cancelled 04/06/19 09:16 Leucine Crystals Cancelled 04/06/19 09:16 Cystine Crystals Cancelled 04/06/19 09:16 Uric Acid Cryst (Auto) Cancelled 04/06/19 09:16 Triple Phos Cryst (Auto) Cancelled 04/06/19 09:16 Tyrosine Crystals Cancelled 04/06/19 09:16 Amorphous Sediment Auto TRACE /HPF 04/12/19 22:30 Cellular Casts Cancelled 04/06/19 09:16 Epithelial Casts (Auto) Cancelled 04/06/19 09:16 Fatty Casts Cancelled 04/06/19 09:16 Granular Casts (Auto) Cancelled 04/06/19 09:16 Waxy Casts (Auto) Cancelled 04/06/19 09:16 Broad Casts Cancelled 04/06/19 09:16 RBC Casts (Auto) Cancelled 04/06/19 09:16 WBC Casts (Auto) Cancelled 04/06/19 09:16 Urine Mucus (Auto) RARE /LPF 04/12/19 22:30 U Trichomonas (Auto) Cancelled 04/06/19 09:16 Ur Yeast w Hyphae Cancelled 04/06/19 09:16 Urine Yeast (Budding) Cancelled 04/06/19 09:16 Urine Calcium 23.9 mg/dL (Not Estab.) 04/06/19 19:15 Urine Total Protein 56.9 mg/dL (Not Estab.) 04/06/19 19:15 Urine Albumin 12.9 % (.) 04/06/19 19:15 U Pcnvd-8-Tyygqgry 12.4 % (.) 04/06/19 19:15 U Ekhnp-6-Pqhfrcgf 23.8 % (.) 04/06/19 19:15 U Beta Globulin 33.8 % (.) 04/06/19 19:15 U Gamma Globulin 17.2 % (.) 04/06/19 19:15 U PEP M-Michael % Not Observed % (Not Observ) 04/06/19 19:15 Urine PEP Note Comment (.) 04/06/19 19:15 Urine Ascorbic Acid NEGATIVE (NEGATIVE) 04/12/19 22:30 Albumin (ZHANNA) 2.8 g/dL (2.9-4.4) L 04/06/19 20:22 Urine Immunofixation Comment (.) 04/06/19 19:15 Blood Type AB POSITIVE 04/11/19 09:48 Blood Type Confirm AB POSITIVE 04/11/19 09:59 Antibody Screen NEGATIVE 04/11/19 09:48 Crossmatch See Detail 04/11/19 09:48 Impressions: Renal Ultrasound 04/06/19 00:00 IMPRESSION: 1. No abnormality of the kidneys. 2. Wells catheter within the urinary bladder. 3. Cholelithiasis without other associated ancillary findings to indicate an acute cholecystitis. Lumbar Spine CT 04/06/19 13:16 IMPRESSION: Multiple lytic lesions throughout the lumbar spine with a large expansile lesion in the left L3 transverse process. Findings are most consistent with metastatic disease. Does the patient have a known primary? Femur X-Ray 04/06/19 13:17 IMPRESSION: Lytic lesion in the mid left femur suspicious for primary neoplasm or metastatic disease. Chest X-Ray 04/06/19 16:13 IMPRESSION: NO ACUTE RADIOGRAPHIC FINDING IN THE CHEST. Skeletal Survey 04/07/19 17:43 IMPRESSION: 1. Lytic lesions in the left humerus, lumbar spine and left femur. 2. Acute nondisplaced fracture of the right posterior-lateral 7th rib. Chest CT 04/12/19 00:00 IMPRESSION: 1. Known bone lesions. Suggestive of osseous metastases. Present diffusely. 2. Primary may be pulmonary, in the left lower lobe. There is low-density masslike abnormal opacity in the apex extending to abut the hilum with probable associated mediastinal and hilar adenopathy. 3. Indeterminate liver lesion. Indeterminate left adrenal mass. Findings are considered suspicious for metastasis, however. 4. Infrarenal abdominal aortic aneurysm. 5. Cholelithiasis. AAA Size: Follow-up Recommendation 3.0-3.4 cm Every 3 years *Based upon the Society for Vascular Surgery Guidelines: J Vasc Surg. 2009 Nov;50(4 Suppl):S2-49 *For aortas of maximum diameter of 2.6-2.9 cm meeting the criteria for AAA (?1.5 x proximal normal segment) Abdomen/Pelvis CT 04/12/19 09:17 IMPRESSION: 1. Known bone lesions. Suggestive of osseous metastases. Present diffusely. 2. Primary may be pulmonary, in the left lower lobe. There is low-density masslike abnormal opacity in the apex extending to abut the hilum with probable associated mediastinal and hilar adenopathy. 3. Indeterminate liver lesion. Indeterminate left adrenal mass. Findings are considered suspicious for metastasis, however. 4. Infrarenal abdominal aortic aneurysm. 5. Cholelithiasis. AAA Size: Follow-up Recommendation 3.0-3.4 cm Every 3 years *Based upon the Society for Vascular Surgery Guidelines: J Vasc Surg. 2008;50(4 Suppl):S2-49 *For aortas of maximum diameter of 2.6-2.9 cm meeting the criteria for AAA (?1.5 x proximal normal segment) Head MRI 04/13/19 00:00 IMPRESSION: 1. Supratentorial ring-enhancing tiny metastatic lesions, left temporal and right frontal lobes. 2. Solitary right inferior cerebellar ring-enhancing metastatic lesion. EVIDENCE OF ACUTE STROKE: NO. Stroke Is this a Stroke Patient?: No Acute Heart Failure - Is this a Heart Failure Patient?: No
[2019-05-03] MEDS: HALOPERIDOL 5 MG TABLET PO PRN (18:00)
[2019-05-04] MEDS: OXYCODONE-ACETAMINOPHEN 5-325 MG TABLET PO PRN ×2 (07:22→12:08)
[2019-05-04 08:31] VITALS: BP 159/71
[2019-05-04] MEDS: MORPHINE SULFATE 10 MG/5 ML ORAL SOLUTION UDCUP PO PRN ×2 (08:33→15:46)
[2019-05-04] MEDS: ACETAMINOPHEN 325 MG TABLET PO PRN (08:33)
[2019-05-04] MEDS: DEXAMETHASONE 4 MG TABLET PO SCH (09:30)
[2019-05-04] MEDS: DOCUSATE SODIUM 100 MG CAPSULE PO SCH (09:30)
[2019-05-04] MEDS: CARVEDILOL 12.5 MG TABLET PO SCH (09:31)
[2019-05-04] MEDS: POLYETHYLENE GLYCOL 3350 POWDER 17 GM/1 PACKET PO SCH (09:31)
--- NOTE | 2019-05-04 10:19 | PDOC PROGRESS REPORT ---
Subjective Progress Note for:: 05/04/19 Subjective:: The patient is a 64-year-old female without significant past medical history, likely related to poor healthcare utilization, who was admitted 04/06/2019 with low back pain and hypercalcemia and ultimately found to have metastatic lung cancer with bone and brain metastasis. Patient was seen on morning rounds with her son present. She is found resting in bed, comfortably, on room air. She reports that she slept well overnight and that her pain is currently well controlled. She is very pleased with her breakfast this morning and denies abdominal discomfort, nausea, vomiting. They are looking forward to their discharged home with hospice services this afternoon. They have no new questions or concerns. Reason For Visit: APRIL, HYPERCALCEMIA, METASTATIC DISEASE Physical Exam Vital Signs: Temp Pulse Resp BP Pulse Ox 98.1 F 70 16 159/71 H 92 05/04/19 07:43 05/04/19 07:43 05/04/19 07:43 05/04/19 07:43 05/04/19 07:43 Intake & Output 05/03/19 05/04/19 05/05/19 06:59 06:59 06:59 Intake Total 350 358 Output Total 1 Balance 349 358 Weight 53.1 kg 49.9 kg General appearance: PRESENT: no acute distress, cooperative, thin, well- developed, well-nourished Head exam: PRESENT: atraumatic, normocephalic Eye exam: PRESENT: conjunctiva pink, EOMI, PERRLA. ABSENT: scleral icterus Mouth exam: PRESENT: moist, tongue midline Neck exam: ABSENT: carotid bruit, JVD, lymphadenopathy, thyromegaly Respiratory exam: PRESENT: clear to auscultation cindy, symmetrical, unlabored. ABSENT: rales, rhonchi, wheezes Cardiovascular exam: PRESENT: RRR. ABSENT: diastolic murmur, rubs, systolic murmur Extremities exam: PRESENT: full ROM. ABSENT: calf tenderness, clubbing, pedal edema Neurological exam: PRESENT: alert, awake, oriented to person, oriented to place, oriented to time, oriented to situation, CN II-XII grossly intact. ABSENT: motor sensory deficit Psychiatric exam: PRESENT: appropriate affect, normal mood. ABSENT: homicidal ideation, suicidal ideation Skin exam: PRESENT: dry, intact, warm. ABSENT: cyanosis, rash Results Laboratory Results: 04/13/19 07:14 04/17/19 04:26 Impressions: Renal Ultrasound 04/06/19 00:00 IMPRESSION: 1. No abnormality of the kidneys. 2. Wells catheter within the urinary bladder. 3. Cholelithiasis without other associated ancillary findings to indicate an acute cholecystitis. Lumbar Spine CT 04/06/19 13:16 IMPRESSION: Multiple lytic lesions throughout the lumbar spine with a large expansile lesion in the left L3 transverse process. Findings are most consistent with metastatic disease. Does the patient have a known primary? Femur X-Ray 04/06/19 13:17 IMPRESSION: Lytic lesion in the mid left femur suspicious for primary neoplasm or metastatic disease. Chest X-Ray 04/06/19 16:13 IMPRESSION: NO ACUTE RADIOGRAPHIC FINDING IN THE CHEST. Skeletal Survey 04/07/19 17:43 IMPRESSION: 1. Lytic lesions in the left humerus, lumbar spine and left femur. 2. Acute nondisplaced fracture of the right posterior-lateral 7th rib. Chest CT 04/12/19 00:00 IMPRESSION: 1. Known bone lesions. Suggestive of osseous metastases. Present diffusely. 2. Primary may be pulmonary, in the left lower lobe. There is low-density masslike abnormal opacity in the apex extending to abut the hilum with probable associated mediastinal and hilar adenopathy. 3. Indeterminate liver lesion. Indeterminate left adrenal mass. Findings are considered suspicious for metastasis, however. 4. Infrarenal abdominal aortic aneurysm. 5. Cholelithiasis. AAA Size: Follow-up Recommendation 3.0-3.4 cm Every 3 years_ ____ *Based upon the Society for Vascular Surgery Guidelines: J Vasc Surg. 2009 Oct;50(4 Suppl):S2-49 *For aortas of maximum diameter of 2.6-2.9 cm meeting the criteria for AAA (?1.5 x proximal normal segment) Abdomen/Pelvis CT 04/12/19 09:17 IMPRESSION: 1. Known bone lesions. Suggestive of osseous metastases. Present diffusely. 2. Primary may be pulmonary, in the left lower lobe. There is low-density masslike abnormal opacity in the apex extending to abut the hilum with probable associated mediastinal and hilar adenopathy. 3. Indeterminate liver lesion. Indeterminate left adrenal mass. Findings are considered suspicious for metastasis, however. 4. Infrarenal abdominal aortic aneurysm. 5. Cholelithiasis. AAA Size: Follow-up Recommendation 3.0-3.4 cm Every 3 years *Based upon the Society for Vascular Surgery Guidelines: J Vasc Surg. 2009 Nov;50(4 Suppl):S2-49 *For aortas of maximum diameter of 2.6-2.9 cm meeting the criteria for AAA (?1.5 x proximal normal segment) Head MRI 04/13/19 00:00 IMPRESSION: 1. Supratentorial ring-enhancing tiny metastatic lesions, left temporal and right frontal lobes. 2. Solitary right inferior cerebellar ring-enhancing metastatic lesion. EVIDENCE OF ACUTE STROKE: NO. Assessment and Plan - Diagnosis (1) APRIL (acute kidney injury) Is this a current diagnosis for this admission?: Yes Plan: Resolved. Likely due to underlying malignancy, multiple myeloma. Renal ultrasound unremarkable. Daily BMP. Avoid nephrotoxic meds. (2) Anemia Qualifiers: Other causes of anemia: chronic disease, neoplastic Is this a current diagnosis for this admission?: Yes Plan: Denies any easy bruising, nosebleeds, hematemesis, hemoptysis, vaginal bleed, melena or hematochezia. H&H stable. Status post 2 PRBC transfusion 04/11/2019. Likely related to underlying malignancy. (3) Anorexia Is this a current diagnosis for this admission?: Yes Plan: Likely due to underlying malignancy. Mild improvement on PO Decadron No benefit from Marinol (4) Brain metastasis Is this a current diagnosis for this admission?: Yes Plan: PO Decadron D/C home with hospice services (5) Cancer of lower lobe of lung Qualifiers: Laterality: left Qualified Code(s): C34.32 - Malignant neoplasm of lower lobe, left bronchus or lung Is this a current diagnosis for this admission?: Yes Plan: Metastatic. Noted to have lesions and the lung, brain, bones and adrenal gland. Brain MRI positive for solitary enhancing lesion. Patient has history of 40 pack smoking and quit 5 years ago. Oncology consulted. PT to d/c home with hospice. (6) Elevated LFTs Is this a current diagnosis for this admission?: Yes Plan: Trending down. Possibly due to metastatic lung disease. CT abdomen positive for liver lesions. Patient has not received any hepatotoxic meds on this hospitalization. (7) Hypercalcemia Is this a current diagnosis for this admission?: Yes Plan: Resolved. Most likely hypercalcemia of malignancy most likely lung malignancy. Initially thought to be due to multiple myeloma which has been ruled out. Presented with lytic bone lesions, anemia and APRIL Received 1 dose of zoledronic acid. PTH WNL. (8) Hypertension Is this a current diagnosis for this admission?: Yes Plan: Not optimized. Continue on Coreg 25 mg p.o. twice daily. (9) Low back pain Qualifiers: Chronicity: chronic Back pain laterality: midline Sciatica presence: without sciatica Qualified Code(s): M54.5 - Low back pain; G89.29 - Other chronic pain Is this a current diagnosis for this admission?: Yes Plan: Controlled on fentanyl patch. Likely due to underlying malignancy. prn Oxycode for breakthrough pain. (10) Lytic bone lesion of femur Is this a current diagnosis for this admission?: Yes Plan: Most likely underlying malignancy possibly lung cancer. Initially thought to be due to multiple myeloma given anemia, APRIL, hyp ercalcemia. Skeletal survey positive for diffuse lytic lesions. UPEP/SPEP negative for multiple myeloma. (11) Malignancy Is this a current diagnosis for this admission?: Yes Plan: As above. (12) Pain, neoplasm-related Is this a current diagnosis for this admission?: Yes Plan: As above. - Time Time Spent with patient: 15-24 minutes Medications reviewed and adjusted accordingly: Yes Anticipated discharge: Hospice - Home
[2019-05-04] MEDS: HALOPERIDOL 5 MG TABLET PO PRN (12:52)
[2019-05-05] MEDS ORDERED: FENTANYL 100 MCG/HR PATCH.TD72 TD SCH (10:00)
== END 2019-05-04 16:00 | disposition hospice, home (50) | DRG 682 ==
LOC: ER 10:30 → EH 17:37 → 4N 22:10
PROVIDERS: ADMIT Internal Medicine; ATTEND Registered Nurse
DX: N17.9 Acute kidney failure, unspecified (principal); G93.41 Metabolic encephalopathy; C79.31 Secondary malignant neoplasm of brain; C90.00 Multiple myeloma not having achieved remission; C34.32 Malignant neoplasm of lower lobe, left bronchus or lung; E83.52 Hypercalcemia; R63.0 Anorexia; I10 Essential (primary) hypertension; G89.3 Neoplasm related pain (acute) (chronic); M54.5 Low back pain; M89.9 Disorder of bone, unspecified; D63.0 Anemia in neoplastic disease; Z66 Do not resuscitate; Z53.20 Procedure and treatment not carried out because of patient's decision for unspecified reasons; Z79.899 Other long term (current) drug therapy; Z60.2 Problems related to living alone; Z87.891 Personal history of nicotine dependence; Z88.2 Allergy status to sulfonamides; Z91.14 Patient's other noncompliance with medication regimen; Z78.1 Physical restraint status; Z75.1 Person awaiting admission to adequate facility elsewhere
CPT/HCPCS: 36415; 36430; 70553; 71045; 71260; 72131; 74177; 76775; 77075; 80048; 80053; 81001; 82232; 82310; 82340; 82962; 83615; 83735; 83970; 84100; 84132; 84156; 84166; 84439; 84443; 84481; 85025; 85027; 86320; 86335; 86850; 86900; 86901; 86920; 87040; 87070; 87086; 93005; 93010; 96361; 96374; 99285; A9270-GY; A9576; J0360; J1170; J1644; J2270; J2405; J2550; J3480; J3489; J3490; J7030; J8540; P9016